=== PATIENT | female | born 1935 | race African-American/Black ===

== ENCOUNTER 2016-12-09 13:18 | Inpatient (IN) | payer MEDICARE, BC, MEDICAID ==
[~2016-12-09] VITALS: Ht 162.6 cm; Wt 68.9 kg
[~2016-12-09 13:18] MED LIST: ASPIRIN EC325 MG ORAL; CALCIUM + VITA1 EAC1 PO; CARDIZEM60 MG ORAL; CRESTOR20 MG ORAL; CRESTOR40 MG ORAL; DEPAKENE250 MG ORAL; DIOVAN80 MG ORAL; ECOTRIN325 MG ORAL; FUROSEMIDE40 MG ORAL; KLOR-CON20 MEQ ORAL; LOVAZA1 GM ORAL; METOPROLOL SUC100 MG ORAL; PLAVIX75 MG ORAL; PREVACID30 M2 ORAL; PREVACID30 MG ORAL; QUETIAPINE FUMA25 MG ORAL; QUETIAPINE FUMA50 MG ORAL; RANITIDINE HCL150 M2 PO; RESTORIL15 MG ORAL; TEMAZEPAM15 MG ORAL; XARELTO10 MG ORAL; ZYPREXA5 MG ORAL
[2016-12-09 13:20] VITALS: BP 134/58
[2016-12-09] MEDS ORDERED: Tetanus/Diptheria/Pertussis Vaccine 0.5ml Syr IM ONE (13:45)
--- NOTE | 2016-12-09 13:45 | Emergency Room Report ---
History of Present Illness General Chief Complaint: Generalized Weakness Source: Patient, EMS Present Illness HPI 81-year-old female, poor historian, history of psych, hypertension, Afib on xarelto, presenting with fall. Patient is for poor historian but states that she slipped out of bed and fell onto floor. Unknown LOC. EMS reports that neighbors found her on the floor, and called 911. Patient unable to give full history as far as what happened prior to the fall. However at this time complaining of mild left facial pain for which she sustained a bruise, and mild left knee pain. Patient denies any current chest pain shortness of breath nausea vomiting abdominal pain Allergies: Coded Allergies: No Known Allergies (Unverified , 11/25/13) Patient History Past Medical History: see triage record Past Surgical History: none Pertinent Family History: none Reviewed Nursing Documentation: PMH: Agreed, PSxH: Agreed Nursing Documentation-PMH Past Medical History: No History, Except For Hx Cardiac Problems: Yes Hx Hypertension: Yes Hx Pacemaker: Yes Hx Asthma: No Hx COPD: No Hx Diabetes: No Hx Cancer: No Hx Gastrointestinal Problems: Yes - GERD Hx Dialysis: No Hx Neurological Problems: Yes - Dementia; difficulty in walking; foot pain Hx Cerebrovascular Accident: No Hx Dementia: Yes Hx Seizures: No Review of Systems All Other Systems: limited - poor historian Physical Exam Vital Signs Date Time Temp Pulse Resp B/P (MAP) Pulse Ox O2 Delivery O2 Flow Rate FiO2 12/09/16 13:10 98.1 81 18 161/68 98 Room Air Sp02 EP Interpretation: reviewed, normal General Appearance: non-toxic, other - Elderly frail-appearing female, awake and alert, following commands, however not good historian Head: normocephalic - Left-sided facial ecchymosis and edema, with superficial abrasion, not bleeding. Tender to palpation. Eyes: bilateral eye normal inspection, bilateral eye PERRL, bilateral eye EOMI ENT: normal pharynx, normal voice, moist mucus membranes, other Neck: normal inspection, full range of motion, supple Respiratory: normal inspection, lungs clear, normal breath sounds, no respiratory distress, no retraction, no wheezing, speaking full sentences, chest symmetrical Cardiovascular #1: normal inspection, regular rate, rhythm, no edema, normal capillary refill Cardiovascular #2: 2+ radial (R), 2+ radial (L) Gastrointestinal: normal inspection, non tender, soft, non-distended, no guarding Musculoskeletal: back normal, other - L knee with mild effusion TTP, however full passive ROM. no abnormalities other ext Neurologic: alert, responsive, motor strength/tone normal, sensory intact Psychiatric: other - poor historian/confused Skin: normal inspection, normal color, no rash, warm/dry, well hydrated, normal turgor Procedures Critical Care Time Critical Care Time 40 minutes of CC time 81-year-old female, atrial fibrillation, on several toe, head trauma VS: Tachycardic but BP is normal Airway patent. Not hypoxic. PLAN: IV access, labs, CT head and C-spine Tele CC time also includes review of labs, review of EMR, speaking to EMS, d/w hospitalist CC could include dosing of pressors, additional Abx CC time does not include procedures Medical Decision Making Diagnostic Impression: Primary Impression: Atrial fibrillation Additional Impressions: Head trauma Fall Syncope ER Course 81 yo female with fall, unknown mechanism, possible syncopal episode. DDX: Possible syncopal episode versus mechanical fall: Dehydration, hypovolemia, electrolyte imbalance, cardiac, ACS, atrial fibrillation, infectious, UTI or pneumonia Head trauma: On blood thinners rule out intracranial bleed/C spine fx Plan: Obtain labs, ua, EKG, CXR, CT head/C spine, left knee x-ray T. dap ER course: Patient has been monitored during ED stay, heart rate has been mostly 100-120, blood pressures have been within normal limits CT head neg for acute bleed Pt remains awake and alert however confused, unknown baseline. Disposition: Patient is to be admitted to telemetry D/W Dr. Engel and Dr. Dale, who have accepted patient for admission Please note that this Emergency Department Report was dictated using [employer] production [employer] technology software, occasionally this can lead to erroneous entry secondary to interpretation by the dictation equipment. Laboratory Tests Test 12/09/16 14:00 12/09/16 14:47 12/10/16 04:40 White Blood Count 11.6 K/UL (4.8-10.8) H 10.9 K/UL (4.8-10.8) H Red Blood Count 4.57 M/UL (4.20-5.40) 4.05 M/UL (4.20-5.40) L Hemoglobin 13.3 G/DL (12.0-16.0) 12.4 G/DL (12.0-16.0) Hematocrit 43.2 % (37.0-47.0) 38.7 % (37.0-47.0) Mean Corpuscular Volume 94 FL (80-99) 96 FL (80-99) Mean Corpuscular Hemoglobin 29.1 PG (27.0-31.0) 30.6 PG (27.0-31.0) Mean Corpuscular Hemoglobin Concent 30.8 G/DL (32.0-36.0) L 32.1 G/DL (32.0-36.0) Red Cell Distribution Width 12.5 % (11.6-14.8) 12.2 % (11.6-14.8) Platelet Count 192 K/UL (150-450) 154 K/UL (150-450) Mean Platelet Volume 7.7 FL (6.5-10.1) 7.8 FL (6.5-10.1) Neutrophils (%) (Auto) 80.9 % (45.0-75.0) H 74.8 % (45.0-75.0) Lymphocytes (%) (Auto) 7.3 % (20.0-45.0) L 13.3 % (20.0-45.0) L Monocytes (%) (Auto) 11.0 % (1.0-10.0) H 10.8 % (1.0-10.0) H Eosinophils (%) (Auto) 0.0 % (0.0-3.0) 0.1 % (0.0-3.0) Basophils (%) (Auto) 0.8 % (0.0-2.0) 1.0 % (0.0-2.0) Sodium Level 141 mEQ/L (135-145) 137 mEQ/L (135-145) Potassium Level 3.7 mEQ/L (3.4-4.9) 4.1 mEQ/L (3.4-4.9) Chloride Level 101 mEQ/L (98-107) 101 mEQ/L (98-107) Carbon Dioxide Level 26 mEQ/L (20-30) 23 mEQ/L (20-30) Anion Gap 14 (5-15) 13 (5-15) Blood Urea Nitrogen 16 mg/dL (7-23) 18 mg/dL (7-23) Creatinine 1.1 mg/dL (0.5-0.9) H 1.1 mg/dL (0.5-0.9) H Estimate Glomerular Filtration Rate mL/min (>60) mL/min (>60) Glucose Level 124 mg/dL (74-106) H 104 mg/dL (74-106) Calcium Level 9.2 mg/dL (8.6-10.2) 8.8 mg/dL (8.6-10.2) Total Bilirubin 0.5 mg/dL (0.0-1.2) Aspartate Amino Transferase (AST) 184 U/L (5-40) H Alanine Aminotransferase (ALT) 38 U/L (3-33) H Alkaline Phosphatase 60 U/L (35-104) Total Creatine Kinase 55529 U/L (26-140) H 31487 U/L (26-140) H Creatine Kinase MB 84.6 ng/mL (< 3.8) H 17.9 ng/mL (< 3.8) H Creatine Kinase MB Relative Index 0.5 0.1 Troponin I < 0.30 ng/mL (<=0.30) < 0.30 ng/mL (<=0.30) Pro-B-Type Natriuretic Peptide 5534 pg/mL (0-450) H 2924 pg/mL (0-450) H Total Protein 7.7 g/dL (6.6-8.7) Albumin 3.6 g/dL (3.5-5.2) Globulin 4.1 g/dL Albumin/Globulin Ratio 0.8 (1.0-2.7) L Serum Alcohol < 10 mg/dL Urine Color Wolverine Urine Appearance Turbid Urine pH 5 (4.5-8.0) Urine Specific [place] 1.015 (1.005-1.035) Urine Protein 4+ (NEGATIVE) H Urine Glucose (UA) 1+ (NEGATIVE) H Urine Ketones 2+ (NEGATIVE) H Urine Occult Blood 5+ (NEGATIVE) H Urine Nitrite Negative (NEGATIVE) Urine Bilirubin Negative (NEGATIVE) Urine Urobilinogen 1 MG/DL (0.0-1.0) H Urine Leukocyte Esterase 3+ (NEGATIVE) H Urine RBC 15-20 /HPF (0 - 2) H Urine WBC 10-15 /HPF (0 - 2) H Urine Squamous Epithelial Cells Few /LPF (NONE/OCC) Urine Amorphous Sediment Few /LPF (NONE) H Urine Bacteria Moderate /HPF (NONE) H EKG Diagnostic Results Rate: tachycardiac, other - 106 Rhythm: other - afib ST Segments: other - TWI inf and lateral leads ASA given to the pt in ED: No Rhythm Strip Diag. Results EP Interpretation: yes Rate: 100 Rhythm: no PVC's, no ectopy, other - afib Chest X-Ray Diagnostic Results Chest X-Ray Diagnostic Results : Chest X-Ray Ordered: Yes # of Views/Limited/Complete: 1 View Indication: Other EP Interpretation: Yes Interpretation: no consolidation, no effusion, no pneumothorax, other - cardiomegaly Impression: Other - cardiomegaly, PPM Electronically Signed by: Electronically signed by Jie Vizcarra MD Other X-Ray Diagnostic Results Other X-Ray Diagnostic Results : X-Ray ordered: L knee # of Views/Limited Vs Complete: 3 View, Complete Indication: Pain EP Interpretation: Yes Interpretation: no dislocation, no soft tissue swelling, no fractures Impression: Other - degenerative changes Electronically Signed by: electroncally signed by jie vizcarra MD CT/MRI/US Diagnostic Results CT/MRI/US Diagnostic Results #1: Imaging Test Ordered: CT head Impression Negative for acute intracranial bleed or mass effect Electronically signed by Jie Vizcarra MD CT/MRI/US Diagnostic Results #2: Imaging Test Ordered: CT C spine Impression Impression: No acute bony trauma Degenerative changes, Electronically signed by Jie Vizcarra MD Last Vital Signs Date Time Temp Pulse Resp B/P (MAP) Pulse Ox O2 Delivery O2 Flow Rate FiO2 12/09/16 13:10 98.1 81 18 161/68 98 Room Air Disposition: ADMITTED INPATIENT Condition: Serious Jie Vizcarra M.D. Dec 09, 2016 13:45
[2016-12-09 14:23] LABS: BASOPHILS % (AUTO) 0.8 % (0.0-2.0); LYMPHOCYTES % (AUTO) 7.3 % (20.0-45.0); MEAN CORPUSCULAR HEMOGLOBIN 29.1 PG (27.0-31.0); MEAN CORPUSCULAR HGB CONC 30.8 G/DL (32.0-36.0); MEAN CORPUSCULAR VOLUME 94 FL (80-99); MEAN PLATELET VOLUME 7.7 FL (6.5-10.1); NEUTROPHILS % (AUTO) 80.9 % (45.0-75.0); PLATELET COUNT 192 K/UL (150-450); RED BLOOD COUNT 4.57 M/UL (4.20-5.40); RED CELL DISTRIBUTION WIDTH 12.5 % (11.6-14.8); WHITE BLOOD COUNT 11.6 K/UL (4.8-10.8)
--- NOTE | 2016-12-09 14:26 | Diagnostic Imaging Report ---
Indication: Shortness of breath Technique: One view of the chest Comparison: Findings: Left lateral hemidiaphragm is obscured, could indicate a small amount of pleural fluid. The remainder lungs and pleural spaces are clear. There is a left chest unifocal pacemaker. Heart is mildly enlarged. Surgical hardware is again demonstrated in the left scapula Impression: Possible small left pleural effusion No acute process otherwise Cardiomegaly
[2016-12-09 14:34] LABS: ALANINE AMINOTRANSFERASE 38 U/L (3-33); ALBUMIN/GLOBULIN RATIO 0.8 (1.0-2.7); ANION GAP 14 (5-15); ASPARTATE AMINO TRANSFERASE 184 U/L (5-40); CALCIUM 9.2 mg/dL (8.6-10.2); CARBON DIOXIDE 26 mEQ/L (20-30); CHLORIDE 101 mEQ/L (98-107); CREATININE 1.1 mg/dL (0.5-0.9); HEMOLYSIS 3; POTASSIUM 3.7 mEQ/L (3.4-4.9); SODIUM 141 mEQ/L (135-145); TOTAL PROTEIN 7.7 g/dL (6.6-8.7); TROPONIN I < 0.30 ng/mL (<=0.30)
[2016-12-09 14:44] LABS: CKMB 84.6 ng/mL (< 3.8)
[2016-12-09] MEDS ORDERED: Mylanta II UD 30ml ORAL PRN (14:45)
[2016-12-09] MEDS ORDERED: DuoNeb 0.5-3(2.5)mg/3ml neb HHN PRN (14:45)
[2016-12-09] MEDS ORDERED: Nitroglycerin Subl 0.4mg tab SL PRN (14:45)
[2016-12-09] MEDS ORDERED: Miralax 17gm pkt ORAL PRN (14:45)
[2016-12-09 15:03] VITALS: BP 123/68
[2016-12-09 15:05] LABS: APPEARANCE,URINE TURBID; KETONES,URINE 2+ (NEGATIVE); LEUKOCYTE ESTERASE ,URINE 3+ (NEGATIVE); NITRITE,URINE NEGATIVE (NEGATIVE); PH,URINE 5 (4.5-8.0); PROTEIN,URINE 4+ (NEGATIVE); UROBILINOGEN,URINE 1 MG/DL (0.0-1.0)
--- NOTE | 2016-12-09 15:16 | Diagnostic Imaging Report ---
Indication: , Recent Technique: Spiral acquisitions obtained through the cervical spine. No IV contrast utilized. Multiplanar reconstructions were generated. Total dose length product 2:30 mGycm. CTDIvol(s) 13.8 mGy. Dose reduction achieved using automated exposure control Comparison: None Findings: Vertebral body heights are preserved, except for abnormality of the C5 and C6 vertebral bodies due to degenerative remodeling. There is slight reversal of the normal cervical lordosis in the mid to lower cervical spine, due to the degenerative remodeling of the vertebral bodies in this area. Otherwise normal bony alignment. No acute fractures. No dislocations. There is degenerative narrowing of the anterior lateral axial joint. At C3-4, there is mild central posterior disc protrusion. This, in combination with short pedicles results in borderline narrowing of the spinal canal. There is minimal narrowing of left neural foramen this level. There is facet degeneration on the left. The disc space is preserved At C4-5, no significant disc bulge or or spinal stenosis. The disc space is preserved. There is facet degeneration on the left. There is moderate narrowing of the left neural foramen. At C5-6, there is moderate degenerative disc narrowing. Posterior osteophytes and short pedicles result in borderline stenosis of the spinal canal. There is moderate bilateral neural foraminal stenosis. At C6-7, there is moderate degenerative disc narrowing. No significant disc bulge or protrusion. There is moderate bilateral neural foraminal stenosis. At the remaining disc levels, no significant disc bulge or protrusion, spinal stenosis, or neural foraminal narrowing. Fairly numerous surgical clips are seen in the left side of the neck. There are fairly extensive vascular calcifications. Impression: No acute bony trauma Degenerative changes, as detailed on a level by level basis above The CT scanner at [facility] is accredited by the [employer] and the scans are performed using protocols designed to limit radiation exposure to as low as reasonably achievable to attain images of sufficient resolution adequate for diagnostic evaluation.
[2016-12-09] MEDS ORDERED: UNOBMED (15:27)
[2016-12-09 15:33] LABS: AMORPHOUS SEDIMENT,UR FEW /LPF; BACTERIA,URINE MODERATE /HPF; RBC,URINE 15-20 /HPF (0 - 2); SQUAMOUS EPITHELIAL CELL,UR FEW /LPF (NONE/OCC)
--- NOTE | 2016-12-09 15:35 | Diagnostic Imaging Report ---
Indication: Pain Technique: 3 views of the left knee Comparison: None Findings:There is degenerative joint space narrowing of the medial compartment and minimally of the lateral compartment. There are medial, lateral, and patellofemoral degenerative proliferative changes. No definite acute fractures. No dislocations. There are vascular calcifications. No definite suprapatellar effusion. Impression:Degenerative changes, as described No acute bony trauma
[2016-12-09 16:15] VITALS: BP 136/74
--- NOTE | 2016-12-09 18:03 | History & Physical ---
History and Physical History & Physicial Dictated for Int Med-Dr Engel no. [id number]. MAYANK PATEL Dec 09, 2016 18:03
[2016-12-09 20:00] VITALS: BP 121/47
[2016-12-09] MEDS: Heparin 5000 units/ml inj SUBQ SCH (21:55)
[2016-12-10] VITALS: BP 112/51
--- NOTE | 2016-12-10 02:45 | History and Physical Report ---
DATE OF ADMISSION: 12/09/2016 CHIEF COMPLAINT: The patient is an 81-year-old female, who presents with a chief complaint of altered mental status. HISTORY OF PRESENT ILLNESS: The patient herself is a poor historian. According to notes of emergency room, the patient was found by neighbors after a fall. It is unknown how long the patient was down. Neighbors called 911. Upon arrival at [facility] emergency room, the patient was found to be in atrial fibrillation with rapid ventricular rate. The patient is admitted for altered mental status secondary to fall injury. PAST MEDICAL HISTORY: Significant for 1. Atrial fibrillation, on Xarelto. 2. Hypertension. 3. Psychiatric disorder. PAST SURGICAL HISTORY: Significant for pacemaker implantation. CURRENT MEDICATIONS: 1. Lasix 40 mg one tablet p.o. daily. 2. Prevacid 30 mg one tablet p.o. daily. 3. Metoprolol 100 mg one tablet p.o. daily. 4. Seroquel 100 mg one tablet p.o. daily. 5. Zantac 150 mg one tablet p.o. twice daily. 6. Xarelto 15 mg one tablet p.o. daily. 7. Crestor 20 mg one tablet p.o. daily. 8. Depakote 250 mg p.o. three times daily. 9. Diovan 80 mg one tablet p.o. twice daily. ALLERGIES: No known drug allergies. SOCIAL HISTORY: The patient is single and lives alone. The patient denies tobacco or alcohol use. REVIEW OF SYSTEMS: Unable to assess secondary to the patient's mental status. PHYSICAL EXAMINATION: VITAL SIGNS: Temperature 98.1, respirations 18, pulse 81, blood pressure 161/68. GENERAL: The patient is a well-developed and well-nourished female, in no apparent distress. HEENT: Eyes: Pupils equal and responsive to light and accommodation. Extraocular movements are intact. NECK: Supple without lymphadenopathy. CHEST: Lungs are clear to auscultation bilaterally without wheezes or rales. CARDIOVASCULAR: Tachycardic, regular rhythm and rate. S1 and S2 normal without murmurs, rubs, or gallops. ABDOMEN: Soft, nontender, nondistended. Positive bowel sounds. No evidence of hepatosplenomegaly. Currently, no rebound or guarding noted. EXTREMITIES: Negative for clubbing, cyanosis, or edema. RECTAL/GENITAL: Refused. NEUROLOGIC: Cranial nerves II through XII are grossly intact without focal deficits. LABORATORY STUDIES: WBC 11.6, hemoglobin 15.2, hematocrit 42.2, and platelets 192,000. Sodium 141, potassium 3.7, chloride 101, CO2 26, BUN 16, creatinine 1.1, and glucose 124. AST elevated at 184, ALT elevated at 38. Total CK elevated at 14,190. CK-MB fraction is elevated at 84.6. Troponin normal at less than 0.3. BNP elevated at 5534. Urinalysis showed 5+ occult blood, 1+ glucose, 2+ ketones with 10 to 15 WBCs. Chest x-ray revealed no acute disease. A left knee x-ray showed degenerative arthritis, otherwise no acute fracture. ASSESSMENT: This is an 81-year-old female with: 1. Altered mental status. 2. Fall injury. 3. Atrial fibrillation with rapid ventricular rate. 4. Hypertension. 5. Rhabdomyolysis. 6. Pacemaker in situ. 7. Altered mental status. It is unknown why the patient has altered mental status. The patient's heart rate upon arrival was in the 130s. The patient's heart rate is now in the 90s. A Neurology consultation per Dr. Gan. An MRI of the brain is pending. 8. Atrial fibrillation. A Cardiology consultation has been obtained with Dr. Ponce Tomas. Continue Xarelto as above. 9. Hypertension. Continue metoprolol and Diovan as above. 10. Rhabdomyolysis. The patient is currently receiving intravenous fluids. 11. Pacemaker in situ. Deng Loza M.D. DR: Vernon JOB#: [id number] CC:
[2016-12-10] MEDS: LORazepam Inj 2mg/ml 1ml IV PRN ×2 (02:53→12:14)
[2016-12-10 04:00] VITALS: BP 146/99
[2016-12-10 05:46] LABS: EOSINOPHILS % (AUTO) 0.1 % (0.0-3.0); LYMPHOCYTES % (AUTO) 13.3 % (20.0-45.0); MEAN CORPUSCULAR HEMOGLOBIN 30.6 PG (27.0-31.0); MEAN CORPUSCULAR HGB CONC 32.1 G/DL (32.0-36.0); MEAN CORPUSCULAR VOLUME 96 FL (80-99); MEAN PLATELET VOLUME 7.8 FL (6.5-10.1); MONOCYTES % (AUTO) 10.8 % (1.0-10.0); NEUTROPHILS % (AUTO) 74.8 % (45.0-75.0); PLATELET COUNT 154 K/UL (150-450); RED BLOOD COUNT 4.05 M/UL (4.20-5.40); RED CELL DISTRIBUTION WIDTH 12.2 % (11.6-14.8); WHITE BLOOD COUNT 10.9 K/UL (4.8-10.8)
[2016-12-10 05:58] LABS: TROPONIN I < 0.30 ng/mL (<=0.30)
[2016-12-10 06:02] LABS: ANION GAP 13 (5-15); CALCIUM 8.8 mg/dL (8.6-10.2); CARBON DIOXIDE 23 mEQ/L (20-30); CHLORIDE 101 mEQ/L (98-107); CREATININE 1.1 mg/dL (0.5-0.9); HEMOLYSIS 13; POTASSIUM 4.1 mEQ/L (3.4-4.9); SODIUM 137 mEQ/L (135-145)
[2016-12-10 06:07] LABS: CKMB 17.9 ng/mL (< 3.8)
[2016-12-10] MEDS: Heparin 5000 units/ml inj SUBQ SCH (08:09)
[2016-12-10] MEDS ORDERED: Diltiazem 25mg/5ml IV PRN (08:15)
[2016-12-10] MEDS ORDERED: Xarelto 15mg tab ORAL SCH (09:00)
[2016-12-10] MEDS: Morphine Sulfate 2mg/ml Inj IVP PRN (10:06)
--- NOTE | 2016-12-10 11:52 | Wound Care Consultation ---
Wound Assessment Wound Assessment #1: Wound Number: 1 Wound Present on Admission: Yes New Wound: No Status Change of Wound: No Wound Location Body Site Modif: right Wound Location Body Site: other - cheek Wound Type: pressure ulcer Jabier Test: Does not Jabier Wound Thickness: Partial Thickness Wound Length: 3.0 Wound Width: 4.0 Wound Depth: less than 0.1 Percent of Wound [place]/Red: 100 Wound Drainage Amount: None Wound Drainage Odor: None/Absent Tissue Surrounding Wound: Intact Wound General Appearance: Open to air, Clean/Dry Wound Assessment #2: Wound Number: 2 Wound Present on Admission: Yes New Wound: No Status Change of Wound: No Wound Location Body Site: perineal area Wound Type: lesion-etiology unknown Jabier Test: Does not Jabier Wound Thickness: Full Thickness Wound Length: 4.0 Wound Width: 3.5 Wound Depth: 0.2 Percent of Wound [place]/Red: 90 Percent of Wound Bed Yellow/Wh: 10 Wound Drainage Description: Serosanguineous Wound Drainage Amount: Moderate Wound Drainage Odor: None/Absent Tissue Surrounding Wound: Erythemic Wound General Appearance: Reddened, Draining Wound Assessment #3: Wound Number: 3 Wound Present on Admission: Yes New Wound: No Status Change of Wound: No Wound Location Body Site Modif: left, lateral Wound Location Body Site: metatarsal head - 5th Wound Type: pressure ulcer Jabier Test: Does not Jabier Wound Thickness: Full Thickness Wound Length: 1.0 Wound Width: 1.5 Wound Depth: utd Percent of Wound Bed Yellow/Wh: 100 - dry Wound Drainage Amount: None Wound Drainage Odor: None/Absent Tissue Surrounding Wound: Intact Wound General Appearance: Asymptomatic Wound Assessment #4: Wound Number: 4 Wound Present on Admission: Yes New Wound: No Status Change of Wound: No Wound Location Body Site Modif: left Wound Location Body Site: elbow Wound Type: scab - scattered dry Jabier Test: Does not Jabier Wound Thickness: Full Thickness Percent of Wound Black/Brown: 100 Wound Drainage Amount: None Wound Drainage Odor: None/Absent Tissue Surrounding Wound: Erythemic Wound General Appearance: Asymptomatic Wound Comment #1 Left cheek open wound with partial skin loss #2 Perineal area full thickness open wound etiology unknown #3 Left lateral 5th metatarsal head dry scab #4 Left elbow with scattered dry scabs Recommendation -Perineal area full thickness open wound etiology unknown Cleanse with saline, pat dry, apply Triad cream BID and PRN soiled and leave area open to air -Local wound care per protocol -Keep clean and dry -Turn and reposition -Optimize nutrition -Offload both heels -Heel protector on both heels -Assess and f/u accordingly for any changes MYNOR MCGRAW RN Dec 10, 2016 11:52
[2016-12-10] MEDS ORDERED: Metoprolol 5mg/5ml Inj IVP PRN ×2 (12:45→19:00)
--- NOTE | 2016-12-10 14:45 | Diagnostic Imaging Report ---
Indications: History of recent head trauma from fall, possible loss of consciousness Technique: Spiral acquisitions obtained through the brain. Angled axial and coronal 5 x 5 mm slices were reconstructed. Total dose length product 1301 mGycm. CTDI vol(s) 70 mGy. Dose reduction achieved using automated exposure control Comparison: 12/30/2013 Findings: Again demonstrated is anterior convexity and cerebellar cortical volume loss. This appears to progressed somewhat since the previous study. There is minimal periventricular deep white matter chronic ischemic change. No acute hemorrhage or edema. No mass effect or midline shift. There is a calcification in the left posterior parietal lobe which was not clearly evident previously. Included orbits and sinuses are unremarkable. The mastoids are clear. The calvarium is intact. Impression: Chronic and age-related changes Left posterior parietal calcification, not evident previously. Significance uncertain, likely on the basis of postinflammatory change Negative for acute intracranial bleed or mass effect The CT scanner at [facility] is accredited by the [employer] and the scans are performed using protocols designed to limit radiation exposure to as low as reasonably achievable to attain images of sufficient resolution adequate for diagnostic evaluation.
--- NOTE | 2016-12-10 14:50 | Consultation ---
History of Present Illness General Date patient seen: Dec 09, 2016 Chief Complaint: Generalized Weakness Present Illness HPI 81-year-old female with hx of hypertension, Afib , pace maker, presenting with fall, apparently she slipped out of bed and fell onto floor. . EMS reported that neighbors found her on the floor, and called 911. she was complaining of mild left facial pain for which she sustained a bruise, and mild left knee pain. Allergies: Coded Allergies: No Known Allergies (Unverified , 10/22/13) Medication History Scheduled Aspirin* (Ecotrin*), 81 MG ORAL DAILY, (Reported) Clopidogrel Bisulfate* (Plavix*), 75 MG ORAL DAILY, (Reported) Furosemide* (Lasix*), 40 MG ORAL DAILY, (Reported) Lansoprazole* (Prevacid*), 30 MG ORAL BID, (Reported) Lansoprazole* (Prevacid*), 30 MG ORAL DAILY, (Reported) Metoprolol Succinate* (Metoprolol Succinate*), 100 MG ORAL DAILY, (Reported) Metoprolol Succinate* (Metoprolol Succinate*), 100 MG ORAL DAILY, (Reported) [place]-3 Acid Ethyl Esters (Lovaza), 1 GM ORAL DAILY, (Reported) Potassium Chloride (Klor-Con), 8.8 MEQ ORAL DAILY, (Reported) Quetiapine Fumarate* (Quetiapine Fumarate*), 100 MG ORAL DAILY, (Reported) Quetiapine Fumarate* (Seroquel*), 25 MG ORAL DAILY Ranitidine HCl (Ranitidine HCl), 150 MG PO BID, (Reported) Rivaroxaban (Xarelto*), 15 MG ORAL DAILY, (Reported) Rosuvastatin Calcium* (Crestor*), 40 MG ORAL DAILY, (Reported) Rosuvastatin Calcium* (Crestor*), 20 MG ORAL DAILY, (Reported) Temazepam (Temazepam*), 15 MG ORAL BEDTIME, (Reported) Valproic Acid (Depakene), 250 MG ORAL TID, (Reported) Valproic Acid (Depakene), 250 MG ORAL TID, (Reported) Valsartan (Diovan), 80 MG ORAL BID, (Reported) Valsartan (Diovan), 80 MG ORAL BID, (Reported) Scheduled PRN Temazepam* (Restoril*), 15 MG ORAL BEDTIME PRN for Insomnia, (Reported) Miscellaneous Medications Calcium Carbonate/Vitamin D3 (Calcium + Vitamin D Tablet), 1 EACH PO, (Reported) Unable to Obtain Medications (Unable To Obtain Meds), (Reported) Patient History Healthcare decision maker Resuscitation status Advanced Directive on File Past Medical/Surgical History Past Medical/Surgical History: (1) Psychosis (2) Atrial fibrillation (3) Cardiomyopathy Review of Systems Constitutional: Reports: no symptoms Eye: Reports: no symptoms ENT: Reports: no symptoms All Other Systems: negative except mentioned in HPI Physical Exam General Appearance: WD/WN Lines, tubes and drains: peripheral HEENT: normocephalic, atraumatic Neck: non-tender, normal alignment Respiratory/Chest: chest wall non-tender, lungs clear Cardiovascular/Chest: normal peripheral pulses, normal rate Abdomen: normal bowel sounds Last 24 Hour Vital Signs Date Time Temp Pulse Resp B/P (MAP) Pulse Ox O2 Delivery O2 Flow Rate FiO2 12/10/16 13:05 180 118/60 12/10/16 10:48 125 133/60 12/10/16 08:20 97 16 Room Air 21 12/10/16 04:00 117 12/10/16 04:00 98.6 98 22 146/99 94 Room Air 12/10/16 00:00 108 12/10/16 00:00 97.3 83 16 112/51 100 Room Air 12/09/16 20:00 97.5 84 20 121/47 98 Room Air 12/09/16 20:00 88 12/09/16 16:15 97.2 91 15 136/74 97 Room Air 12/09/16 15:50 98.1 95 18 140/93 100 Room Air 12/09/16 15:03 98.1 108 16 123/68 100 Room Air Intake and Output 12/10/16 12/11/16 19:00 07:00 # Bowel Movements 1 Laboratory Tests Test 12/09/16 14:47 12/10/16 04:40 Urine Color [place] Urine Appearance Turbid Urine pH 5 (4.5-8.0) Urine Specific [place] 1.015 (1.005-1.035) Urine Protein 4+ (NEGATIVE) H Urine Glucose (UA) 1+ (NEGATIVE) H Urine Ketones 2+ (NEGATIVE) H Urine Occult Blood 5+ (NEGATIVE) H Urine Nitrite Negative (NEGATIVE) Urine Bilirubin Negative (NEGATIVE) Urine Urobilinogen 1 MG/DL (0.0-1.0) H Urine Leukocyte Esterase 3+ (NEGATIVE) H Urine RBC 15-20 /HPF (0 - 2) H Urine WBC 10-15 /HPF (0 - 2) H Urine Squamous Epithelial Cells Few /LPF (NONE/OCC) Urine Amorphous Sediment Few /LPF (NONE) H Urine Bacteria Moderate /HPF (NONE) H White Blood Count 10.9 K/UL (4.8-10.8) H Red Blood Count 4.05 M/UL (4.20-5.40) L Hemoglobin 12.4 G/DL (12.0-16.0) Hematocrit 38.7 % (37.0-47.0) Mean Corpuscular Volume 96 FL (80-99) Mean Corpuscular Hemoglobin 30.6 PG (27.0-31.0) Mean Corpuscular Hemoglobin Concent 32.1 G/DL (32.0-36.0) Red Cell Distribution Width 12.2 % (11.6-14.8) Platelet Count 154 K/UL (150-450) Mean Platelet Volume 7.8 FL (6.5-10.1) Neutrophils (%) (Auto) 74.8 % (45.0-75.0) Lymphocytes (%) (Auto) 13.3 % (20.0-45.0) L Monocytes (%) (Auto) 10.8 % (1.0-10.0) H Eosinophils (%) (Auto) 0.1 % (0.0-3.0) Basophils (%) (Auto) 1.0 % (0.0-2.0) Sodium Level 137 mEQ/L (135-145) Potassium Level 4.1 mEQ/L (3.4-4.9) Chloride Level 101 mEQ/L (98-107) Carbon Dioxide Level 23 mEQ/L (20-30) Anion Gap 13 (5-15) Blood Urea Nitrogen 18 mg/dL (7-23) Creatinine 1.1 mg/dL (0.5-0.9) H Estimat Glomerular Filtration Rate mL/min (>60) Glucose Level 104 mg/dL (74-106) Calcium Level 8.8 mg/dL (8.6-10.2) Total Creatine Kinase 76110 U/L (26-140) H Creatine Kinase MB 17.9 ng/mL (< 3.8) H Creatine Kinase MB Relative Index 0.1 Troponin I < 0.30 ng/mL (<=0.30) Pro-B-Type Natriuretic Peptide 2924 pg/mL (0-450) H Microbiology Date/Time Source Procedure Growth Status 12/09/16 14:47 Urine,Clean Catch Urine Culture - Preliminary NO GROWTH Resulted Height (Feet): 5 Height (Inches): 4.00 Weight (Pounds): 152 Medications Current Medications Medications (Trade) Dose Ordered Sig/Trudy Route PRN Reason Start Time Stop Time Status Last Admin Dose Admin Acetaminophen (Tylenol) 650 mg Q4H PRN ORAL fever 12/09/16 14:45 01/08/17 14:44 Al Hydroxide/Mg Hydroxide (Mylanta II) 30 ml Q6H PRN ORAL dyspepsia 12/09/16 14:45 01/08/17 14:44 Albuterol/ Ipratropium (DuoNeb 0.5-3(2.5)mg/3ml) 3 ml Q4H PRN HHN Shortness of Breath 12/09/16 14:45 12/14/16 14:44 Clonidine HCl (Catapres) 0.1 mg Q4H PRN ORAL SBP > 160 12/09/16 14:45 01/08/17 14:44 Dextrose (Dextrose 50%) STAT PRN IV Hypoglycemia 12/09/16 14:45 01/08/17 14:44 Diltiazem HCl (Cardizem) 10 mg Q1H PRN IV HR > SUSTAINED 120 12/10/16 08:15 01/09/17 08:14 12/10/16 10:48 Heparin Sodium (Porcine) (Heparin 5000 units/ml) 5,000 units EVERY 12 HOURS SUBQ 12/09/16 21:00 01/08/17 20:59 12/10/16 08:09 Lorazepam (Ativan 2mg/ml 1ml) 0.5 mg Q4H PRN IV For Anxiety 12/09/16 14:45 12/16/16 14:44 12/10/16 12:14 Metoprolol Succinate (Toprol XL) 100 mg DAILY ORAL 12/11/16 09:00 01/10/17 08:59 Metoprolol Tartrate (Lopressor) 5 mg QIDPRN PRN IVP For High Blood Pressure 12/10/16 12:45 01/09/17 12:44 12/10/16 13:05 Morphine Sulfate (Morphine Sulfate) 1 mg Q4H PRN IVP For Pain 7-10 12/09/16 14:45 12/16/16 14:44 12/10/16 10:06 Nitroglycerin (Ntg) 0.4 mg Q5M X 3 DOSES PRN SL Prn Chest Pain 12/09/16 14:45 01/08/17 14:44 Ondansetron HCl (Zofran) 4 mg Q6H PRN IVP Nausea & Vomiting 12/09/16 14:45 01/08/17 14:44 Polyethylene Glycol (Miralax) 17 gm HSPRN PRN ORAL Constipation 12/09/16 14:45 01/08/17 14:44 Rivaroxaban (Xarelto) 15 mg DAILY ORAL 12/10/16 09:00 01/09/17 08:59 12/10/16 09:00 Temazepam (Restoril) 15 mg HSPRN PRN ORAL Insomnia 12/09/16 14:45 12/16/16 14:44 Assessment/Plan Problem List: (1) Acute encephalopathy ICD Codes: G93.40 - Encephalopathy, unspecified SNOMED: 0394656 (2) Rapid atrial fibrillation ICD Codes: I48.91 - Unspecified atrial fibrillation SNOMED: 590700382 (3) Psychosis ICD Codes: F29 - Unsp psychosis not due to a substance or known physiol cond SNOMED: 58773931 (4) Atrial fibrillation ICD Codes: I48.91 - Atrial fibrillation SNOMED: 34976180 (5) dementia vascular (6) Cardiomyopathy ICD Codes: I42.9 - Cardiomyopathy, unspecified SNOMED: 93443411 Assessment/Plan telemetry monitoring echo cardiac enzymes rate control psych evaluation continue psych meds MARÍA JI Dec 10, 2016 14:50
--- NOTE | 2016-12-10 15:07 | Internal Med Progress Note ---
Subjective Physician Name Sim Engel Attending Physician Sim Engel MD Current Medications Medications (Trade) Dose Ordered Sig/Trudy Route PRN Reason Start Time Stop Time Status Last Admin Dose Admin Acetaminophen (Tylenol) 650 mg Q4H PRN ORAL fever 12/09/16 14:45 01/08/17 14:44 Al Hydroxide/Mg Hydroxide (Mylanta II) 30 ml Q6H PRN ORAL dyspepsia 12/09/16 14:45 01/08/17 14:44 Albuterol/ Ipratropium (DuoNeb 0.5-3(2.5)mg/3ml) 3 ml Q4H PRN HHN Shortness of Breath 12/09/16 14:45 12/14/16 14:44 Clonidine HCl (Catapres) 0.1 mg Q4H PRN ORAL SBP > 160 12/09/16 14:45 01/08/17 14:44 Dextrose (Dextrose 50%) STAT PRN IV Hypoglycemia 12/09/16 14:45 01/08/17 14:44 Diltiazem HCl (Cardizem) 10 mg Q1H PRN IV HR > SUSTAINED 120 12/10/16 08:15 01/09/17 08:14 12/10/16 10:48 Heparin Sodium (Porcine) (Heparin 5000 units/ml) 5,000 units EVERY 12 HOURS SUBQ 12/09/16 21:00 01/08/17 20:59 12/10/16 08:09 Lorazepam (Ativan 2mg/ml 1ml) 0.5 mg Q4H PRN IV For Anxiety 12/09/16 14:45 12/16/16 14:44 12/10/16 12:14 Metoprolol Succinate (Toprol XL) 100 mg DAILY ORAL 12/11/16 09:00 01/10/17 08:59 Metoprolol Tartrate (Lopressor) 5 mg QIDPRN PRN IVP For High Blood Pressure 12/10/16 12:45 01/09/17 12:44 12/10/16 13:05 Morphine Sulfate (Morphine Sulfate) 1 mg Q4H PRN IVP For Pain 7-10 12/09/16 14:45 12/16/16 14:44 12/10/16 10:06 Nitroglycerin (Ntg) 0.4 mg Q5M X 3 DOSES PRN SL Prn Chest Pain 12/09/16 14:45 01/08/17 14:44 Ondansetron HCl (Zofran) 4 mg Q6H PRN IVP Nausea & Vomiting 12/09/16 14:45 01/08/17 14:44 Polyethylene Glycol (Miralax) 17 gm HSPRN PRN ORAL Constipation 12/09/16 14:45 01/08/17 14:44 Rivaroxaban (Xarelto) 15 mg DAILY ORAL 12/10/16 09:00 01/09/17 08:59 12/10/16 09:00 Temazepam (Restoril) 15 mg HSPRN PRN ORAL Insomnia 12/09/16 14:45 12/16/16 14:44 Allergies: Coded Allergies: No Known Allergies (Unverified , 10/22/13) Subjective feeling weak, c/o Left knee pain , awake, alert, responsive, tachycardia Objective Last Vital Signs Date Time Temp Pulse Resp B/P (MAP) Pulse Ox O2 Delivery O2 Flow Rate FiO2 12/10/16 13:05 180 118/60 12/10/16 08:20 16 Room Air 21 12/10/16 04:00 98.6 94 Laboratory Tests Test 12/10/16 04:40 White Blood Count 10.9 K/UL (4.8-10.8) H Red Blood Count 4.05 M/UL (4.20-5.40) L Hemoglobin 12.4 G/DL (12.0-16.0) Hematocrit 38.7 % (37.0-47.0) Mean Corpuscular Volume 96 FL (80-99) Mean Corpuscular Hemoglobin 30.6 PG (27.0-31.0) Mean Corpuscular Hemoglobin Concent 32.1 G/DL (32.0-36.0) Red Cell Distribution Width 12.2 % (11.6-14.8) Platelet Count 154 K/UL (150-450) Mean Platelet Volume 7.8 FL (6.5-10.1) Neutrophils (%) (Auto) 74.8 % (45.0-75.0) Lymphocytes (%) (Auto) 13.3 % (20.0-45.0) L Monocytes (%) (Auto) 10.8 % (1.0-10.0) H Eosinophils (%) (Auto) 0.1 % (0.0-3.0) Basophils (%) (Auto) 1.0 % (0.0-2.0) Sodium Level 137 mEQ/L (135-145) Potassium Level 4.1 mEQ/L (3.4-4.9) Chloride Level 101 mEQ/L (98-107) Carbon Dioxide Level 23 mEQ/L (20-30) Anion Gap 13 (5-15) Blood Urea Nitrogen 18 mg/dL (7-23) Creatinine 1.1 mg/dL (0.5-0.9) H Estimat Glomerular Filtration Rate mL/min (>60) Glucose Level 104 mg/dL (74-106) Calcium Level 8.8 mg/dL (8.6-10.2) Total Creatine Kinase 42145 U/L (26-140) H Creatine Kinase MB 17.9 ng/mL (< 3.8) H Creatine Kinase MB Relative Index 0.1 Troponin I < 0.30 ng/mL (<=0.30) Pro-B-Type Natriuretic Peptide 2924 pg/mL (0-450) H Microbiology Date/Time Source Procedure Growth Status 12/09/16 14:47 Urine,Clean Catch Urine Culture - Preliminary NO GROWTH Resulted Intake and Output 12/10/16 12/11/16 19:00 07:00 # Bowel Movements 1 Objective General: No acute distress, awake and alert HEENT: NCAT, sclera anicteric, PERRL, EOMI, left chin scrape. Neck: Supple, no significant jugular venous distention, Lungs: fair inspiratory effort, clear to auscultation bilaterally, no Wheeze or Rales. Heart: IRRegular rate and rhythm, normal S1/S2, no murmurs, Left chest wall pacemaker. Abdomen: soft, nontender, nondistended. Normoactive bowel sounds. / Rectal: Refused and deferred. Extremities: No Cyanosis , clubbing or edema. Neuro: A&O x 3, Able to move all extremities slowly, Except left LE's due to knee pain. Skin: warm, no rashes Left chin scrape. Assessment/Plan Assessment/Plan 1. Acute UTI. 2. Fall 3. Atrial fibrillation with rapid ventricular rate. 4. Hypertension. 5. Rhabdomyolysis. 6. Pacemaker in situ. 7. Altered mental status most likely due to toxic metabolic encephalopathy. 8. Left knee pain 9. Mild dehydration Plan: CT of left knee PT Mobility on Xarelto start Abx: Rocephin Aleksandr hydration monitor labs and cultures Sim Engel MD Dec 10, 2016 15:07
[2016-12-10] MEDS: cefTRIAXone 1 GM in D5W 55 ML IVPB SCH (15:56)
[2016-12-10] MEDS: D5 1/2NS 1,000 ML IV SCH (15:56)
[2016-12-10 16:00] VITALS: BP 138/87
--- NOTE | 2016-12-10 16:40 | Diagnostic Imaging Report ---
Indication: Left knee pain. Technique: Continuous helical imaging of the left knee was performed in the transaxial plane. Coronal 2-D reformatted images were also generated. Study obtained in a Siemens Sensation [address] total DLP 354 mGycm CTD/vol 0.15x2, 15.26 mGy Comparison: None Findings: There is a moderate-sized joint effusion. Marginal spurs are demonstrated in all 3 compartments of the knee. The joint is narrowed. The bones are osteopenic.. Extensive vascular calcification noted within the popliteal artery. There is a lateral subluxation of the patella. Impression: Moderate to severe osteoarthritis of the knee. Lateral patellar subluxation. Atherosclerotic disease The CT scanner at [facility] is accredited by the [employer] and the scans are performed using dose optimization techniques as appropriate to a performed exam including Automatic Exposure control.
[2016-12-10] MEDS ORDERED: Eliquis 2.5mg tablet ORAL SCH (18:00)
[2016-12-10] MEDS ORDERED: Metoprolol 5mg/5ml Inj IVP ONE (18:45)
--- NOTE | 2016-12-10 18:51 | Cardiology Progress Note ---
Assessment/Plan Assessment/Plan [id number] perm afigb ventriuyal pacing fall with injury htn hld cad s/p oca pci rhabdo iv adn po bb control heaert rate need to reaasses saftely of anticoaulation in light of fall tropa dn ekg in am wath renal fucntion Objective Last 24 Hour Vital Signs Date Time Temp Pulse Resp B/P (MAP) Pulse Ox O2 Delivery O2 Flow Rate FiO2 12/10/16 16:00 97.8 80 21 138/87 97 Room Air 12/10/16 13:05 180 118/60 12/10/16 10:48 125 133/60 12/10/16 08:20 97 16 Room Air 21 12/10/16 04:00 117 12/10/16 04:00 98.6 98 22 146/99 94 Room Air 12/10/16 00:00 108 12/10/16 00:00 97.3 83 16 112/51 100 Room Air 12/09/16 20:00 97.5 84 20 121/47 98 Room Air 12/09/16 20:00 88 Intake and Output 12/10/16 12/11/16 19:00 07:00 # Bowel Movements 1 Laboratory Tests Test 12/10/16 04:40 12/10/16 17:10 White Blood Count 10.9 K/UL (4.8-10.8) H Red Blood Count 4.05 M/UL (4.20-5.40) L Hemoglobin 12.4 G/DL (12.0-16.0) Hematocrit 38.7 % (37.0-47.0) Mean Corpuscular Volume 96 FL (80-99) Mean Corpuscular Hemoglobin 30.6 PG (27.0-31.0) Mean Corpuscular Hemoglobin Concent 32.1 G/DL (32.0-36.0) Red Cell Distribution Width 12.2 % (11.6-14.8) Platelet Count 154 K/UL (150-450) Mean Platelet Volume 7.8 FL (6.5-10.1) Neutrophils (%) (Auto) 74.8 % (45.0-75.0) Lymphocytes (%) (Auto) 13.3 % (20.0-45.0) L Monocytes (%) (Auto) 10.8 % (1.0-10.0) H Eosinophils (%) (Auto) 0.1 % (0.0-3.0) Basophils (%) (Auto) 1.0 % (0.0-2.0) Sodium Level 137 mEQ/L (135-145) Potassium Level 4.1 mEQ/L (3.4-4.9) Chloride Level 101 mEQ/L (98-107) Carbon Dioxide Level 23 mEQ/L (20-30) Anion Gap 13 (5-15) Blood Urea Nitrogen 18 mg/dL (7-23) Creatinine 1.1 mg/dL (0.5-0.9) H Estimat Glomerular Filtration Rate mL/min (>60) Glucose Level 104 mg/dL (74-106) Calcium Level 8.8 mg/dL (8.6-10.2) Total Creatine Kinase 25903 U/L (26-140) H 73215 U/L (26-140) H Creatine Kinase MB 17.9 ng/mL (< 3.8) H Creatine Kinase MB Relative Index 0.1 Troponin I < 0.30 ng/mL (<=0.30) Pro-B-Type Natriuretic Peptide 2924 pg/mL (0-450) H Microbiology Date/Time Source Procedure Growth Status 12/09/16 14:47 Urine,Clean Catch Urine Culture - Preliminary NO GROWTH Resulted MARIE MARQUES Dec 10, 2016 18:51
[2016-12-10 19:36] VITALS: BP 118/77
[2016-12-10] MEDS ORDERED: Metoprolol Tartrate 50mg tab ORAL SCH (21:00)
[2016-12-10 21:32] LABS: CHOLESTEROL/HDL RATIO 2.2 (3.3-4.4)
[2016-12-11] VITALS (7 sets, daily range): BP systolic 110–150; BP diastolic 54–97
[2016-12-11] MEDS: D5 1/2NS 1,000 ML IV SCH ×2 (05:00→17:34)
[2016-12-11] MEDS ORDERED: Metoprolol 25mg tab ORAL ONE (05:00)
[2016-12-11 05:45] LABS: BASOPHILS % (AUTO) 0.8 % (0.0-2.0); EOSINOPHILS % (AUTO) 0.1 % (0.0-3.0); LYMPHOCYTES % (AUTO) 14.6 % (20.0-45.0); MEAN CORPUSCULAR HGB CONC 33.7 G/DL (32.0-36.0); MEAN CORPUSCULAR VOLUME 95 FL (80-99); MEAN PLATELET VOLUME 7.7 FL (6.5-10.1); MONOCYTES % (AUTO) 14.2 % (1.0-10.0); NEUTROPHILS % (AUTO) 70.4 % (45.0-75.0); PLATELET COUNT 200 K/UL (150-450); RED BLOOD COUNT 4.22 M/UL (4.20-5.40); RED CELL DISTRIBUTION WIDTH 12.3 % (11.6-14.8); WHITE BLOOD COUNT 10.9 K/UL (4.8-10.8)
[2016-12-11 05:54] LABS: ALANINE AMINOTRANSFERASE 49 U/L (3-33); ALBUMIN/GLOBULIN RATIO 0.8 (1.0-2.7); ANION GAP 15 (5-15); ASPARTATE AMINO TRANSFERASE 180 U/L (5-40); CALCIUM 9.1 mg/dL (8.6-10.2); CARBON DIOXIDE 26 mEQ/L (20-30); CHLORIDE 100 mEQ/L (98-107); CREATININE 1.2 mg/dL (0.5-0.9); HEMOLYSIS 2; MAGNESIUM 2.1 mg/dL (1.7-2.5); PHOSPHORUS 2.6 mg/dL (2.5-4.8); POTASSIUM 3.6 mEQ/L (3.4-4.9); SODIUM 141 mEQ/L (135-145); TOTAL PROTEIN 7.2 g/dL (6.6-8.7)
[2016-12-11 05:58] LABS: TROPONIN I < 0.30 ng/mL (<=0.30)
[2016-12-11 06:26] LABS: INR 1.2 (0.9-1.1); PROTHROMBIN TIME 12.1 SEC (9.30-11.50)
--- NOTE | 2016-12-11 07:35 | Pulmonology Progress Note ---
Assessment/Plan Assessment/Plan ASSESSMENT s/p fall A fib with RVR (permanent) HTN Rhabdo Acute toxic metabolic encephalopathy probable UTI Mild dehydration transaminitis CAD with PCI Pacemaker Hyperlipidemia Left knee pain OA L knee, moderate to severe severe pulmonary HTN PLAN OF CARE tele Cardio follows A fib permanent rate control with BB a/coagulation with Xarelto ? safety of a/coagulation in lieu of recent Fall ? increased risk to benefit ratio BP management with BB. Continue Plavix TSH, lipid panel -WNL Carotid Duplex ECHO with pEF 55% and RVSP of 58 c/w moderate to severe pulmonary HTN CT head no acute findings CXR negative O2 HHN prn orthostatic VS this am venous Duplex BLE IVF, trend CK in am abdominal US and hepatitis panel ( prior admission stable LFT). increased ratio of AST to ALT ? ETOH abuse will check GGTP , ammonia level monitor renal parameters, lytes, replace as needed CT C spine no acute bony trauma X ray L knee no acute bony trauma CT L knee moderate to severe OA pain management abx, urine cx + Strep viridans Fall precautions PT/OT case discussed and evaluated by supervising physician Subjective Allergies: Coded Allergies: No Known Allergies (Unverified , 10/22/13) Subjective denies chest pain, SOB, remains in A fib HR borderline 100-106 denies chest pain, SOB but confused and poor historian Objective Last 24 Hour Vital Signs Date Time Temp Pulse Resp B/P (MAP) Pulse Ox O2 Delivery O2 Flow Rate FiO2 12/11/16 05:15 98 132/64 12/11/16 04:00 98.6 85 20 132/74 95 Room Air 12/11/16 04:00 108 12/11/16 00:00 98.0 72 20 110/76 97 Room Air 12/11/16 00:00 97 12/10/16 21:07 98 118/77 12/10/16 20:00 101 12/10/16 19:36 98.2 98 20 118/77 99 Room Air 12/10/16 18:54 126 121/61 12/10/16 16:00 119 12/10/16 16:00 97.8 80 21 138/87 97 Room Air 12/10/16 13:05 180 118/60 12/10/16 12:00 171 12/10/16 10:48 125 133/60 12/10/16 08:20 97 16 Room Air 21 12/10/16 08:00 121 General Appearance: no acute distress, other - awake, alert, confused elderly AA female in NAD HEENT: normocephalic, atraumatic, anicteric, mucous membranes moist Respiratory/Chest: lungs clear, no accessory muscle use, chest wall tender Cardiovascular: normal peripheral pulses, no JVD, tachycardia - 100-106 , irregularly irregular - A fib on tele Abdomen: normal bowel sounds, soft, non tender, non distended Extremities: no edema Neurologic/Psychiatric: abnormal gait, alert, responsive Musculoskeletal: atrophy - BLE Microbiology Date/Time Source Procedure Growth Status 12/09/16 14:47 Urine,Clean Catch Urine Culture - Final Diphtheroids Streptococcus Viridans Complete Laboratory Tests 12/10/16 17:10: Total Creatine Kinase 70066P 12/10/16 17:18: Triglycerides Level 71, Cholesterol Level 139, LDL Cholesterol 63, HDL Cholesterol 62H, Cholesterol/HDL Ratio 2.2L 12/11/16 03:30: White Blood Count 10.9H, Red Blood Count 4.22, Hemoglobin 13.5, Hematocrit 40.1 , Mean Corpuscular Volume 95, Mean Corpuscular Hemoglobin 32.0H, Mean Corpuscular Hemoglobin Concent 33.7, Red Cell Distribution Width 12.3, Platelet Count 200, Mean Platelet Volume 7.7, Neutrophils (%) (Auto) 70.4, Lymphocytes (% ) (Auto) 14.6L, Monocytes (%) (Auto) 14.2H, Eosinophils (%) (Auto) 0.1, Basophils (%) (Auto) 0.8, Prothrombin Time 12.1H, Prothromb Time International Ratio 1.2H, Activated Partial Thromboplast Time 38H, Sodium Level 141, Potassium Level 3.6, Chloride Level 100, Carbon Dioxide Level 26, Anion Gap 15, Blood Urea Nitrogen 11, Creatinine 1.2H, Estimat Glomerular Filtration Rate , Glucose Level 124H, Calcium Level 9.1, Phosphorus Level 2.6, Magnesium Level 2.1 , Total Bilirubin 0.4, Aspartate Amino Transf (AST/SGOT) 180H, Alanine Aminotransferase (ALT/SGPT) 49H, Alkaline Phosphatase 66, Creatine Kinase MB 6.2H, Troponin I < 0.30, Total Protein 7.2, Albumin 3.2L, Globulin 4.0, Albumin/ Globulin Ratio 0.8L, Thyroid Stimulating Hormone (TSH) 1.820 Current Medications Medications (Trade) Dose Ordered Sig/Trudy Route PRN Reason Start Time Stop Time Status Last Admin Dose Admin Acetaminophen (Tylenol) 650 mg Q4H PRN ORAL fever 12/09/16 14:45 01/08/17 14:44 Al Hydroxide/Mg Hydroxide (Mylanta II) 30 ml Q6H PRN ORAL dyspepsia 12/09/16 14:45 01/08/17 14:44 Albuterol/ Ipratropium (DuoNeb 0.5-3(2.5)mg/3ml) 3 ml Q4H PRN HHN Shortness of Breath 12/09/16 14:45 12/14/16 14:44 Apixaban (Eliquis) 5 mg BID ORAL 12/11/16 09:00 01/10/17 08:59 Ceftriaxone Sodium 1 gm/ Dextrose 55 ml @ 110 mls/hr Q24H IVPB 12/10/16 16:00 12/17/16 15:59 12/10/16 15:56 Clonidine HCl (Catapres) 0.1 mg Q4H PRN ORAL SBP > 160 12/09/16 14:45 01/08/17 14:44 Clopidogrel Bisulfate (Plavix) 75 mg DAILY ORAL 12/11/16 09:00 01/10/17 08:59 Dextrose (Dextrose 50%) STAT PRN IV Hypoglycemia 12/09/16 14:45 01/08/17 14:44 Dextrose/Sodium Chloride 1,000 ml @ 75 mls/hr [id number] IV 12/10/16 15:00 01/09/17 14:59 12/11/16 05:00 Diltiazem HCl (Cardizem) 10 mg Q1H PRN IV HR > SUSTAINED 120 12/10/16 08:15 01/09/17 08:14 12/10/16 10:48 Lorazepam (Ativan 2mg/ml 1ml) 0.5 mg Q4H PRN IV For Anxiety 12/09/16 14:45 12/16/16 14:44 12/10/16 12:14 Metoprolol Tartrate (Lopressor) 5 mg QIDPRN PRN IVP heart rate greater than 115 12/10/16 19:00 01/09/17 18:59 Metoprolol Tartrate (Lopressor) 75 mg Q12HR ORAL 12/11/16 09:00 01/10/17 08:59 Morphine Sulfate (Morphine Sulfate) 1 mg Q4H PRN IVP For Pain 7-10 12/09/16 14:45 12/16/16 14:44 12/10/16 10:06 Nitroglycerin (Ntg) 0.4 mg Q5M X 3 DOSES PRN SL Prn Chest Pain 12/09/16 14:45 01/08/17 14:44 Ondansetron HCl (Zofran) 4 mg Q6H PRN IVP Nausea & Vomiting 12/09/16 14:45 01/08/17 14:44 Pantoprazole (Protonix) 40 mg BID ORAL 12/10/16 18:00 01/09/17 17:59 12/10/16 17:16 Polyethylene Glycol (Miralax) 17 gm HSPRN PRN ORAL Constipation 12/09/16 14:45 01/08/17 14:44 Quetiapine Fumarate (SEROquel) 100 mg DAILY ORAL 12/11/16 09:00 01/10/17 08:59 Temazepam (Restoril) 15 mg HSPRN PRN ORAL Insomnia 12/09/16 14:45 12/16/16 14:44 Valproic Acid (Depakene) 250 mg TID ORAL 12/10/16 18:00 01/09/17 17:59 12/10/16 17:15 [facility]derEl[facility] CenterYuki Quiles NP Dec 11, 2016 07:35
[2016-12-11] MEDS ORDERED: Metoprolol Succinate XL 100mg tab ORAL SCH (09:00)
[2016-12-11] MEDS: Eliquis 2.5mg tablet ORAL SCH ×2 (09:32→17:31)
[2016-12-11] MEDS: Metoprolol 25mg tab ORAL SCH ×2 (09:41→20:33)
--- NOTE | 2016-12-11 14:15 | Cardiology Progress Note ---
Assessment/Plan Problem List: (1) Atrial fibrillation (2) dementia vascular (3) Anemia (4) Fall Status: stable, progressing Status Narrative Pt w/ permanent AF/ sick sinus syndrome S/p permanent pacemaker w/ appropriate pacing/sensing on telemetry s/p fall, likely nonsyncopal Assessment/Plan Continue metoprolol for rate control and apixaban for prevention of embolic complications. She is at inc bleeding risk due to falls. However, CHADS VASC score is 4 (age, vascular disease, female gender), and high CVA risk. Subjective ROS Limited/Unobtainable: Yes Subjective Cardiology for Dr. Tomas sedated. No respiratory distress Objective Last 24 Hour Vital Signs Date Time Temp Pulse Resp B/P (MAP) Pulse Ox O2 Delivery O2 Flow Rate FiO2 12/11/16 11:25 96.6 85 18 123/57 99 Room Air 12/11/16 09:41 101 122/72 12/11/16 08:35 98 12/11/16 08:30 101 12/11/16 08:05 85 20 Room Air 21 12/11/16 08:03 96.3 93 18 150/97 100 Room Air 12/11/16 08:00 101 12/11/16 05:15 98 132/64 12/11/16 04:00 98.6 85 20 132/74 95 Room Air 12/11/16 04:00 108 12/11/16 00:00 98.0 72 20 110/76 97 Room Air 12/11/16 00:00 97 12/10/16 21:07 98 118/77 12/10/16 20:00 101 12/10/16 19:36 98.2 98 20 118/77 99 Room Air 12/10/16 18:54 126 121/61 12/10/16 16:00 119 12/10/16 16:00 97.8 80 21 138/87 97 Room Air General Appearance: WD/WN, no apparent distress, lethargic EENT: PERRL/EOMI Neck: supple, no JVD Rhythm: Afib Cardiovascular: no gallop/murmur, irregularly irregular Respiratory/Chest: lungs clear Abdomen: non tender, soft Intake and Output 12/11/16 12/12/16 19:00 07:00 Intake Total 100 ml Balance 100 ml Intake Oral 100 ml # Voids 2 Laboratory Tests Test 12/10/16 17:10 12/10/16 17:18 12/11/16 03:30 Total Creatine Kinase 06091 U/L (26-140) H Triglycerides Level 71 mg/dL (< 150) Cholesterol Level 139 mg/dL (< 200) LDL Cholesterol 63 mg/dL (60-99) HDL Cholesterol 62 mg/dL (> 60) H Cholesterol/HDL Ratio 2.2 (3.3-4.4) L White Blood Count 10.9 K/UL (4.8-10.8) H Red Blood Count 4.22 M/UL (4.20-5.40) Hemoglobin 13.5 G/DL (12.0-16.0) Hematocrit 40.1 % (37.0-47.0) Mean Corpuscular Volume 95 FL (80-99) Mean Corpuscular Hemoglobin 32.0 PG (27.0-31.0) H Mean Corpuscular Hemoglobin Concent 33.7 G/DL (32.0-36.0) Red Cell Distribution Width 12.3 % (11.6-14.8) Platelet Count 200 K/UL (150-450) Mean Platelet Volume 7.7 FL (6.5-10.1) Neutrophils (%) (Auto) 70.4 % (45.0-75.0) Lymphocytes (%) (Auto) 14.6 % (20.0-45.0) L Monocytes (%) (Auto) 14.2 % (1.0-10.0) H Eosinophils (%) (Auto) 0.1 % (0.0-3.0) Basophils (%) (Auto) 0.8 % (0.0-2.0) Prothrombin Time 12.1 SEC (9.30-11.50) H Prothromb Time International Ratio 1.2 (0.9-1.1) H Activated Partial Thromboplast Time 38 SEC (23-33) H Sodium Level 141 mEQ/L (135-145) Potassium Level 3.6 mEQ/L (3.4-4.9) Chloride Level 100 mEQ/L (98-107) Carbon Dioxide Level 26 mEQ/L (20-30) Anion Gap 15 (5-15) Blood Urea Nitrogen 11 mg/dL (7-23) Creatinine 1.2 mg/dL (0.5-0.9) H Estimat Glomerular Filtration Rate mL/min (>60) Glucose Level 124 mg/dL (74-106) H Calcium Level 9.1 mg/dL (8.6-10.2) Phosphorus Level 2.6 mg/dL (2.5-4.8) Magnesium Level 2.1 mg/dL (1.7-2.5) Total Bilirubin 0.4 mg/dL (0.0-1.2) Aspartate Amino Transf (AST/SGOT) 180 U/L (5-40) H Alanine Aminotransferase (ALT/SGPT) 49 U/L (3-33) H Alkaline Phosphatase 66 U/L (35-104) Creatine Kinase MB 6.2 ng/mL (< 3.8) H Troponin I < 0.30 ng/mL (<=0.30) Total Protein 7.2 g/dL (6.6-8.7) Albumin 3.2 g/dL (3.5-5.2) L Globulin 4.0 g/dL Albumin/Globulin Ratio 0.8 (1.0-2.7) L Thyroid Stimulating Hormone (TSH) 1.820 uIU/mL (0.300-4.500) Microbiology Date/Time Source Procedure Growth Status 12/09/16 14:47 Urine,Clean Catch Urine Culture - Final Diphtheroids Streptococcus Viridans Complete WILL URIAS Dec 11, 2016 14:15
[2016-12-11] MEDS ORDERED: Tubing IV Secondary IV ONE (15:28)
--- NOTE | 2016-12-11 16:15 | Internal Med Progress Note ---
Subjective Date of Service: Dec 11, 2016 Physician Name Patel,Mayank Attending Physician Sim Engel MD Current Medications Medications (Trade) Dose Ordered Sig/Trudy Route PRN Reason Start Time Stop Time Status Last Admin Dose Admin Acetaminophen (Tylenol) 650 mg Q4H PRN ORAL fever 12/09/16 14:45 01/08/17 14:44 Al Hydroxide/Mg Hydroxide (Mylanta II) 30 ml Q6H PRN ORAL dyspepsia 12/09/16 14:45 01/08/17 14:44 Albuterol/ Ipratropium (DuoNeb 0.5-3(2.5)mg/3ml) 3 ml Q4H PRN HHN Shortness of Breath 12/09/16 14:45 12/14/16 14:44 Apixaban (Eliquis) 5 mg BID ORAL 12/11/16 09:00 01/10/17 08:59 12/11/16 09:32 Ceftriaxone Sodium 1 gm/ Dextrose 55 ml @ 110 mls/hr Q24H IVPB 12/10/16 16:00 12/17/16 15:59 12/10/16 15:56 Clonidine HCl (Catapres) 0.1 mg Q4H PRN ORAL SBP > 160 12/09/16 14:45 01/08/17 14:44 Clopidogrel Bisulfate (Plavix) 75 mg DAILY ORAL 12/11/16 09:00 01/10/17 08:59 12/11/16 09:32 Dextrose (Dextrose 50%) STAT PRN IV Hypoglycemia 12/09/16 14:45 01/08/17 14:44 Dextrose/Sodium Chloride 1,000 ml @ 75 mls/hr [id number] IV 12/10/16 15:00 01/09/17 14:59 12/11/16 05:00 Diltiazem HCl (Cardizem) 10 mg Q1H PRN IV HR > SUSTAINED 120 12/10/16 08:15 01/09/17 08:14 12/10/16 10:48 Lorazepam (Ativan 2mg/ml 1ml) 0.5 mg Q4H PRN IV For Anxiety 12/09/16 14:45 12/16/16 14:44 12/10/16 12:14 Metoprolol Tartrate (Lopressor) 5 mg QIDPRN PRN IVP heart rate greater than 115 12/10/16 19:00 01/09/17 18:59 Metoprolol Tartrate (Lopressor) 75 mg Q12HR ORAL 12/11/16 09:00 01/10/17 08:59 12/11/16 09:41 Morphine Sulfate (Morphine Sulfate) 1 mg Q4H PRN IVP For Pain 7-10 12/09/16 14:45 12/16/16 14:44 12/10/16 10:06 Nitroglycerin (Ntg) 0.4 mg Q5M X 3 DOSES PRN SL Prn Chest Pain 12/09/16 14:45 01/08/17 14:44 Ondansetron HCl (Zofran) 4 mg Q6H PRN IVP Nausea & Vomiting 12/09/16 14:45 01/08/17 14:44 Pantoprazole (Protonix) 40 mg BID ORAL 12/10/16 18:00 01/09/17 17:59 12/11/16 09:32 Polyethylene Glycol (Miralax) 17 gm HSPRN PRN ORAL Constipation 12/09/16 14:45 01/08/17 14:44 Quetiapine Fumarate (SEROquel) 100 mg DAILY ORAL 12/11/16 09:00 01/10/17 08:59 12/11/16 09:31 Temazepam (Restoril) 15 mg HSPRN PRN ORAL Insomnia 12/09/16 14:45 12/16/16 14:44 Valproic Acid (Depakene) 250 mg TID ORAL 12/10/16 18:00 01/09/17 17:59 12/11/16 13:00 Allergies: Coded Allergies: No Known Allergies (Unverified , 10/22/13) ROS Limited/Unobtainable: No Constitutional: Reports: no symptoms HEENT: Reports: no symptoms Cardiovascular: Reports: no symptoms Respiratory: Reports: no symptoms Gastrointestinal/Abdominal: Reports: no symptoms Genitourinary: Reports: no symptoms Neurologic/Psychiatric: Reports: no symptoms Subjective 81 YO F admitted with altered mental status. Cover for Sung Engel. Objective Last Vital Signs Date Time Temp Pulse Resp B/P (MAP) Pulse Ox O2 Delivery O2 Flow Rate FiO2 12/11/16 15:40 96.6 79 18 144/54 95 Room Air 12/11/16 08:05 21 Laboratory Tests Test 12/10/16 17:10 12/10/16 17:18 12/11/16 03:30 Total Creatine Kinase 92834 U/L (26-140) H Triglycerides Level 71 mg/dL (< 150) Cholesterol Level 139 mg/dL (< 200) LDL Cholesterol 63 mg/dL (60-99) HDL Cholesterol 62 mg/dL (> 60) H Cholesterol/HDL Ratio 2.2 (3.3-4.4) L White Blood Count 10.9 K/UL (4.8-10.8) H Red Blood Count 4.22 M/UL (4.20-5.40) Hemoglobin 13.5 G/DL (12.0-16.0) Hematocrit 40.1 % (37.0-47.0) Mean Corpuscular Volume 95 FL (80-99) Mean Corpuscular Hemoglobin 32.0 PG (27.0-31.0) H Mean Corpuscular Hemoglobin Concent 33.7 G/DL (32.0-36.0) Red Cell Distribution Width 12.3 % (11.6-14.8) Platelet Count 200 K/UL (150-450) Mean Platelet Volume 7.7 FL (6.5-10.1) Neutrophils (%) (Auto) 70.4 % (45.0-75.0) Lymphocytes (%) (Auto) 14.6 % (20.0-45.0) L Monocytes (%) (Auto) 14.2 % (1.0-10.0) H Eosinophils (%) (Auto) 0.1 % (0.0-3.0) Basophils (%) (Auto) 0.8 % (0.0-2.0) Prothrombin Time 12.1 SEC (9.30-11.50) H Prothromb Time International Ratio 1.2 (0.9-1.1) H Activated Partial Thromboplast Time 38 SEC (23-33) H Sodium Level 141 mEQ/L (135-145) Potassium Level 3.6 mEQ/L (3.4-4.9) Chloride Level 100 mEQ/L (98-107) Carbon Dioxide Level 26 mEQ/L (20-30) Anion Gap 15 (5-15) Blood Urea Nitrogen 11 mg/dL (7-23) Creatinine 1.2 mg/dL (0.5-0.9) H Estimat Glomerular Filtration Rate mL/min (>60) Glucose Level 124 mg/dL (74-106) H Calcium Level 9.1 mg/dL (8.6-10.2) Phosphorus Level 2.6 mg/dL (2.5-4.8) Magnesium Level 2.1 mg/dL (1.7-2.5) Total Bilirubin 0.4 mg/dL (0.0-1.2) Aspartate Amino Transf (AST/SGOT) 180 U/L (5-40) H Alanine Aminotransferase (ALT/SGPT) 49 U/L (3-33) H Alkaline Phosphatase 66 U/L (35-104) Creatine Kinase MB 6.2 ng/mL (< 3.8) H Troponin I < 0.30 ng/mL (<=0.30) Total Protein 7.2 g/dL (6.6-8.7) Albumin 3.2 g/dL (3.5-5.2) L Globulin 4.0 g/dL Albumin/Globulin Ratio 0.8 (1.0-2.7) L Thyroid Stimulating Hormone (TSH) 1.820 uIU/mL (0.300-4.500) Microbiology Date/Time Source Procedure Growth Status 12/09/16 14:47 Urine,Clean Catch Urine Culture - Final Diphtheroids Streptococcus Viridans Complete Intake and Output 12/11/16 12/12/16 19:00 07:00 Intake Total 700 ml Balance 700 ml Intake Oral 100 ml IV Total 600 ml # Voids 2 Objective General: alert, cooperative, no distress, appears stated age Head: normocephalic, without obvious abnormality, atraumatic Eyes: conjunctivae/corneas clear. PERRL, EOM's intact Throat: lips, mucosa, and tongue normal. MMM Neck: supple, symmetrical, trachea midline, and no JVD Lungs: clear to auscultation bilaterally Heart: regular rate and rhythm, S1, S2 normal, no murmur, click, rub or gallop Abdomen: soft, non-tender, non-distended, bowel sounds normal; no masses or organomegaly Extremities: extremities normal, atraumatic, no cyanosis or edema Pulses: 2+ and symmetric Skin: skin color, texture, turgor normal; no rashes or lesions Neurologic: grossly normal, no focal deficits Assessment/Plan Problem List: (1) Left knee pain Assessment & Plan: Effusion by CT (2) Pacemaker (3) Altered mental status (4) Toxic encephalopathy (5) UTI (urinary tract infection) Assessment & Plan: Diptheroids and Strep viridans.?contamination? Cont ceftriaxone. (6) Atrial fibrillation Assessment & Plan: See cardiology note. (7) Hypertension Assessment & Plan: continue lopressor. Status: not improved MAYANK PATEL Dec 11, 2016 16:15
[2016-12-11] MEDS: cefTRIAXone 1 GM in D5W 55 ML IVPB SCH (17:32)
[2016-12-11] MEDS: Morphine Sulfate 2mg/ml Inj IVP PRN (20:34)
[2016-12-12 03:45] VITALS: BP 141/62
[2016-12-12 05:10] LABS: EOSINOPHILS % (AUTO) 0.3 % (0.0-3.0); LYMPHOCYTES % (AUTO) 18.6 % (20.0-45.0); MEAN CORPUSCULAR HEMOGLOBIN 30.7 PG (27.0-31.0); MEAN CORPUSCULAR HGB CONC 32.4 G/DL (32.0-36.0); MEAN CORPUSCULAR VOLUME 95 FL (80-99); MEAN PLATELET VOLUME 7.9 FL (6.5-10.1); MONOCYTES % (AUTO) 13.7 % (1.0-10.0); NEUTROPHILS % (AUTO) 66.4 % (45.0-75.0); PLATELET COUNT 186 K/UL (150-450); RED BLOOD COUNT 4.17 M/UL (4.20-5.40); RED CELL DISTRIBUTION WIDTH 12.5 % (11.6-14.8); WHITE BLOOD COUNT 9.3 K/UL (4.8-10.8)
[2016-12-12 05:48] LABS: ALANINE AMINOTRANSFERASE 41 U/L (3-33); ALBUMIN/GLOBULIN RATIO 0.7 (1.0-2.7); ANION GAP 16 (5-15); ASPARTATE AMINO TRANSFERASE 112 U/L (5-40); CALCIUM 8.7 mg/dL (8.6-10.2); CARBON DIOXIDE 24 mEQ/L (20-30); CHLORIDE 102 mEQ/L (98-107); CREATININE 1.2 mg/dL (0.5-0.9); HEMOLYSIS 1; POTASSIUM 3.6 mEQ/L (3.4-4.9); SODIUM 142 mEQ/L (135-145)
[2016-12-12 06:16] LABS: AMMONIA 37 umol/L (11-51)
[2016-12-12] MEDS: D5 1/2NS 1,000 ML IV SCH ×2 (06:38→21:06)
[2016-12-12 08:00] VITALS: BP 162/95
[2016-12-12] MEDS ORDERED: D5 1/2NS 1000ml IV ONE (08:49)
[2016-12-12] MEDS: Eliquis 2.5mg tablet ORAL SCH ×2 (09:20→17:42)
[2016-12-12] MEDS: Metoprolol 25mg tab ORAL SCH ×2 (09:21→21:12)
--- NOTE | 2016-12-12 10:24 | Pulmonology Progress Note ---
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 safety of a/coagulation in lieu of recent Fall ? increased risk to benefit ratio BP management with BB. Continue Plavix TSH, lipid panel -WNL Carotid Duplex ECHO with pEF 55% and RVSP of 58 c/w moderate to severe pulmonary HTN CT head no acute findings CXR negative O2 HHN prn orthostatic VS with evidence of orthostasis from lying to sitting x 1 continue IVF venous Duplex BLE IVF, CK trending down but still high -6250 abdominal US and hepatitis panel ( prior admission stable LFT). increased ratio of AST to ALT ? ETOH abuse GGT-stable , ammonia level -WNL monitor renal parameters, lytes, replace as needed CT C spine no acute bony trauma X ray L knee no acute bony trauma CT L knee moderate to severe OA pain management abx, urine cx + Strep viridans Fall precautions PT/OT case discussed and evaluated by supervising physician Subjective Allergies: Coded Allergies: No Known Allergies (Unverified , 10/22/13) Subjective denies chest pain, SOB, remains in A fib rate controlled denies chest pain, SOB but confused and poor historian Objective Last 24 Hour Vital Signs Date Time Temp Pulse Resp B/P (MAP) Pulse Ox O2 Delivery O2 Flow Rate FiO2 12/12/16 09:21 83 149/80 12/12/16 08:05 91 12/12/16 08:00 97.9 85 18 162/95 100 Room Air 12/12/16 08:00 85 12/12/16 07:26 95 18 Room Air 12/12/16 04:00 85 12/12/16 03:45 98.1 75 19 141/62 99 Room Air 12/12/16 00:00 64 12/11/16 23:54 98.3 69 18 144/70 98 Room Air 12/11/16 20:35 18 97 Room Air 12/11/16 20:33 98 143/61 12/11/16 20:11 92 98 12/11/16 20:10 98.6 92 19 145/78 91 Room Air 12/11/16 20:00 95 12/11/16 19:47 82 20 Room Air 12/11/16 16:00 79 12/11/16 15:40 96.6 79 18 144/54 95 Room Air 12/11/16 12:00 81 12/11/16 11:25 96.6 85 18 123/57 99 Room Air Intake and Output 12/12/16 12/13/16 19:00 07:00 Intake Total 120 ml Balance 120 ml Intake Oral 120 ml # Voids 1 Objective General Appearance: no acute distress, other - awake, alert, confused elderly AA female in NAD HEENT: normocephalic, atraumatic, anicteric, mucous membranes moist Respiratory/Chest: lungs clear, no accessory muscle use, chest wall tender Cardiovascular: normal peripheral pulses, no JVD, irregularly irregular - A fib on tele Abdomen: normal bowel sounds, soft, non tender, non distended Extremities: no edema Neurologic/Psychiatric: abnormal gait, alert, responsive Musculoskeletal: atrophy - BLE Microbiology Date/Time Source Procedure Growth Status 12/09/16 14:47 Urine,Clean Catch Urine Culture - Final Diphtheroids Streptococcus Viridans Complete Laboratory Tests 12/12/16 04:20: White Blood Count 9.3, Red Blood Count 4.17L, Hemoglobin 12.8, Hematocrit 39.5, Mean Corpuscular Volume 95, Mean Corpuscular Hemoglobin 30.7, Mean Corpuscular Hemoglobin Concent 32.4, Red Cell Distribution Width 12.5, Platelet Count 186, Mean Platelet Volume 7.9, Neutrophils (%) (Auto) 66.4, Lymphocytes (%) (Auto) 18.6L, Monocytes (%) (Auto) 13.7H, Eosinophils (%) (Auto) 0.3, Basophils (%) ( Auto) 1.0, Sodium Level 142, Potassium Level 3.6, Chloride Level 102, Carbon Dioxide Level 24, Anion Gap 16H, Blood Urea Nitrogen 10, Creatinine 1.2H, Estimat Glomerular Filtration Rate , Glucose Level 121H, Calcium Level 8.7, Total Bilirubin 0.3, Gamma Glutamyl Transpeptidase 17, Aspartate Amino Transf ( AST/SGOT) 112H, Alanine Aminotransferase (ALT/SGPT) 41H, Alkaline Phosphatase 60 , Ammonia 37, Total Creatine Kinase 6250H, Total Protein 7.0, Albumin 3.0L, Globulin 4.0, Albumin/Globulin Ratio 0.7L, Hepatitis A IgM Antibody [Pending], Hepatitis B Surface Antigen [Pending], Hepatitis B Core IgM Antibody [Pending], Hepatitis C Antibody [Pending] Current Medications Medications (Trade) Dose Ordered Sig/Trudy Route PRN Reason Start Time Stop Time Status Last Admin Dose Admin Acetaminophen (Tylenol) 650 mg Q4H PRN ORAL fever 12/09/16 14:45 01/08/17 14:44 12/12/16 04:09 Al Hydroxide/Mg Hydroxide (Mylanta II) 30 ml Q6H PRN ORAL dyspepsia 12/09/16 14:45 01/08/17 14:44 Albuterol/ Ipratropium (DuoNeb 0.5-3(2.5)mg/3ml) 3 ml Q4H PRN HHN Shortness of Breath 12/09/16 14:45 12/14/16 14:44 Apixaban (Eliquis) 5 mg BID ORAL 12/11/16 09:00 01/10/17 08:59 12/12/16 09:20 Ceftriaxone Sodium 1 gm/ Dextrose 55 ml @ 110 mls/hr Q24H IVPB 12/10/16 16:00 12/17/16 15:59 12/11/16 17:32 Clonidine HCl (Catapres) 0.1 mg Q4H PRN ORAL SBP > 160 12/09/16 14:45 01/08/17 14:44 Clopidogrel Bisulfate (Plavix) 75 mg DAILY ORAL 12/11/16 09:00 01/10/17 08:59 12/12/16 09:20 Dextrose (Dextrose 50%) STAT PRN IV Hypoglycemia 12/09/16 14:45 01/08/17 14:44 Dextrose/Sodium Chloride 1,000 ml @ 75 mls/hr [id number] IV 12/10/16 15:00 01/09/17 14:59 12/12/16 06:38 Diltiazem HCl (Cardizem) 10 mg Q1H PRN IV HR > SUSTAINED 120 12/10/16 08:15 01/09/17 08:14 12/10/16 10:48 Lorazepam (Ativan 2mg/ml 1ml) 0.5 mg Q4H PRN IV For Anxiety 12/09/16 14:45 12/16/16 14:44 12/10/16 12:14 Metoprolol Tartrate (Lopressor) 5 mg QIDPRN PRN IVP heart rate greater than 115 12/10/16 19:00 01/09/17 18:59 Metoprolol Tartrate (Lopressor) 75 mg Q12HR ORAL 12/11/16 09:00 01/10/17 08:59 12/12/16 09:21 Morphine Sulfate (Morphine Sulfate) 1 mg Q4H PRN IVP For Pain 7-10 12/09/16 14:45 12/16/16 14:44 12/11/16 20:34 Nitroglycerin (Ntg) 0.4 mg Q5M X 3 DOSES PRN SL Prn Chest Pain 12/09/16 14:45 01/08/17 14:44 Ondansetron HCl (Zofran) 4 mg Q6H PRN IVP Nausea & Vomiting 12/09/16 14:45 01/08/17 14:44 Pantoprazole (Protonix) 40 mg BID ORAL 12/10/16 18:00 01/09/17 17:59 12/12/16 09:20 Polyethylene Glycol (Miralax) 17 gm HSPRN PRN ORAL Constipation 12/09/16 14:45 01/08/17 14:44 Quetiapine Fumarate (SEROquel) 100 mg DAILY ORAL 12/11/16 09:00 01/10/17 08:59 12/12/16 09:19 Temazepam (Restoril) 15 mg HSPRN PRN ORAL Insomnia 12/09/16 14:45 12/16/16 14:44 Valproic Acid (Depakene) 250 mg TID ORAL 12/10/16 18:00 01/09/17 17:59 12/12/16 09:20 [facility]Bur[facility] HospitalYuki Quiles NP Dec 12, 2016 10:24
[2016-12-12] MEDS ORDERED: DuoNeb 0.5-3(2.5)mg/3ml neb HHN PRN (10:45)
--- NOTE | 2016-12-12 11:34 | Diagnostic Imaging Report ---
Indication: Elevated liver function tests Technique: Ultrasound of the abdomen. Comparison: None Findings: Liver: The liver is normal in size and echogenicity. No focal abnormalities are noted. Gallbladder: The gallbladder is normal. No stones are visualized. The wall is not thickened. Common bile duct: Normal in size. Pancreas: The visualized portion of pancreas is normal in echogenicity. There are no masses. Kidneys: The kidneys are normal in size and echogenicity. There is no hydronephrosis. Spleen: Not adequately visualized. Aorta: The visualized portion of the aorta is normal in caliber. IVC: The demonstrated portion of the inferior vena cava is normal. Impression: Inadequate visualization of the spleen. Otherwise negative.
--- NOTE | 2016-12-12 12:18 | Cardiology Progress Note ---
Assessment/Plan Problem List: (1) Atrial fibrillation (2) dementia vascular (3) Anemia (4) Fall (5) Hypertension Status: stable, progressing Status Narrative Pt w/ permanent AF/ sick sinus syndrome S/p permanent pacemaker w/ appropriate pacing/sensing on telemetry s/p fall, likely nonsyncopal Assessment/Plan Continue metoprolol for rate control and apixaban for prevention of embolic complications. Add norvasc for bp control Subjective ROS Limited/Unobtainable: No Subjective Cardiology for Dr. Tomas Awake/alert. no c/o Objective Last 24 Hour Vital Signs Date Time Temp Pulse Resp B/P (MAP) Pulse Ox O2 Delivery O2 Flow Rate FiO2 12/12/16 09:21 83 149/80 12/12/16 08:05 91 12/12/16 08:00 97.9 85 18 162/95 100 Room Air 12/12/16 08:00 85 12/12/16 07:26 95 18 Room Air 12/12/16 04:00 85 12/12/16 03:45 98.1 75 19 141/62 99 Room Air 12/12/16 00:00 64 12/11/16 23:54 98.3 69 18 144/70 98 Room Air 12/11/16 20:35 18 97 Room Air 12/11/16 20:33 98 143/61 12/11/16 20:11 92 98 12/11/16 20:10 98.6 92 19 145/78 91 Room Air 12/11/16 20:00 95 12/11/16 19:47 82 20 Room Air 12/11/16 16:00 79 12/11/16 15:40 96.6 79 18 144/54 95 Room Air General Appearance: WD/WN, no apparent distress, alert EENT: PERRL/EOMI, other - L facial ecchymosis Neck: non-tender, supple, other - healed L neck surgical scar Rhythm: Afib Cardiovascular: no gallop/murmur, irregularly irregular Respiratory/Chest: lungs clear, normal breath sounds Abdomen: non tender, soft Extremities: no swelling Intake and Output 12/12/16 12/13/16 19:00 07:00 Intake Total 120 ml Balance 120 ml Intake Oral 120 ml # Voids 1 Laboratory Tests Test 12/12/16 04:20 White Blood Count 9.3 K/UL (4.8-10.8) Red Blood Count 4.17 M/UL (4.20-5.40) L Hemoglobin 12.8 G/DL (12.0-16.0) Hematocrit 39.5 % (37.0-47.0) Mean Corpuscular Volume 95 FL (80-99) Mean Corpuscular Hemoglobin 30.7 PG (27.0-31.0) Mean Corpuscular Hemoglobin Concent 32.4 G/DL (32.0-36.0) Red Cell Distribution Width 12.5 % (11.6-14.8) Platelet Count 186 K/UL (150-450) Mean Platelet Volume 7.9 FL (6.5-10.1) Neutrophils (%) (Auto) 66.4 % (45.0-75.0) Lymphocytes (%) (Auto) 18.6 % (20.0-45.0) L Monocytes (%) (Auto) 13.7 % (1.0-10.0) H Eosinophils (%) (Auto) 0.3 % (0.0-3.0) Basophils (%) (Auto) 1.0 % (0.0-2.0) Sodium Level 142 mEQ/L (135-145) Potassium Level 3.6 mEQ/L (3.4-4.9) Chloride Level 102 mEQ/L (98-107) Carbon Dioxide Level 24 mEQ/L (20-30) Anion Gap 16 (5-15) H Blood Urea Nitrogen 10 mg/dL (7-23) Creatinine 1.2 mg/dL (0.5-0.9) H Estimat Glomerular Filtration Rate mL/min (>60) Glucose Level 121 mg/dL (74-106) H Calcium Level 8.7 mg/dL (8.6-10.2) Total Bilirubin 0.3 mg/dL (0.0-1.2) Gamma Glutamyl Transpeptidase 17 U/L (5-36) Aspartate Amino Transf (AST/SGOT) 112 U/L (5-40) H Alanine Aminotransferase (ALT/SGPT) 41 U/L (3-33) H Alkaline Phosphatase 60 U/L (35-104) Ammonia 37 umol/L (11-51) Total Creatine Kinase 6250 U/L (26-140) H Total Protein 7.0 g/dL (6.6-8.7) Albumin 3.0 g/dL (3.5-5.2) L Globulin 4.0 g/dL Albumin/Globulin Ratio 0.7 (1.0-2.7) L Hepatitis A IgM Antibody Pending Hepatitis B Surface Antigen Pending Hepatitis B Core IgM Antibody Pending Hepatitis C Antibody Pending Microbiology Date/Time Source Procedure Growth Status 12/09/16 14:47 Urine,Clean Catch Urine Culture - Final Diphtheroids Streptococcus Viridans Complete WILL URIAS Dec 12, 2016 12:18
[2016-12-12 12:48] VITALS: BP 149/67
[2016-12-12] MEDS: cefTRIAXone 1 GM in D5W 55 ML IVPB SCH (15:36)
[2016-12-12 16:15] VITALS: BP 119/52
--- NOTE | 2016-12-12 16:32 | Internal Med Progress Note ---
Subjective Date of Service: Dec 12, 2016 Physician Name Patel,Mayank Attending Physician Sim Engel MD Current Medications Medications (Trade) Dose Ordered Sig/Trudy Route PRN Reason Start Time Stop Time Status Last Admin Dose Admin Acetaminophen (Tylenol) 650 mg Q4H PRN ORAL fever 12/09/16 14:45 01/08/17 14:44 12/12/16 04:09 Al Hydroxide/Mg Hydroxide (Mylanta II) 30 ml Q6H PRN ORAL dyspepsia 12/09/16 14:45 01/08/17 14:44 Albuterol/ Ipratropium (DuoNeb 0.5-3(2.5)mg/3ml) 3 ml Q4H PRN HHN Shortness of Breath 12/12/16 10:45 12/17/16 23:59 Amlodipine Besylate (Norvasc) 2.5 mg DAILY ORAL 12/13/16 09:00 01/12/17 08:59 Apixaban (Eliquis) 5 mg BID ORAL 12/11/16 09:00 01/10/17 08:59 12/12/16 09:20 Ceftriaxone Sodium 1 gm/ Dextrose 55 ml @ 110 mls/hr Q24H IVPB 12/10/16 16:00 12/17/16 15:59 12/12/16 15:36 Clonidine HCl (Catapres) 0.1 mg Q4H PRN ORAL SBP > 160 12/09/16 14:45 01/08/17 14:44 Clopidogrel Bisulfate (Plavix) 75 mg DAILY ORAL 12/11/16 09:00 01/10/17 08:59 12/12/16 09:20 Dextrose (Dextrose 50%) STAT PRN IV Hypoglycemia 12/09/16 14:45 01/08/17 14:44 Dextrose/Sodium Chloride 1,000 ml @ 75 mls/hr [id number] IV 12/10/16 15:00 01/09/17 14:59 12/12/16 06:38 Diltiazem HCl (Cardizem) 10 mg Q1H PRN IV HR > SUSTAINED 120 12/10/16 08:15 01/09/17 08:14 12/10/16 10:48 Lorazepam (Ativan 2mg/ml 1ml) 0.5 mg Q4H PRN IV For Anxiety 12/09/16 14:45 12/16/16 14:44 12/10/16 12:14 Metoprolol Tartrate (Lopressor) 5 mg QIDPRN PRN IVP heart rate greater than 115 12/10/16 19:00 01/09/17 18:59 Metoprolol Tartrate (Lopressor) 75 mg Q12HR ORAL 12/11/16 09:00 01/10/17 08:59 12/12/16 09:21 Morphine Sulfate (Morphine Sulfate) 1 mg Q4H PRN IVP For Pain 10-1112/09/16 14:45 12/16/16 14:44 12/11/16 20:34 Nitroglycerin (Ntg) 0.4 mg Q5M X 3 DOSES PRN SL Prn Chest Pain 12/09/16 14:45 01/08/17 14:44 Ondansetron HCl (Zofran) 4 mg Q6H PRN IVP Nausea & Vomiting 12/09/16 14:45 01/08/17 14:44 Pantoprazole (Protonix) 40 mg BID ORAL 12/10/16 18:00 01/09/17 17:59 12/12/16 09:20 Polyethylene Glycol (Miralax) 17 gm HSPRN PRN ORAL Constipation 12/09/16 14:45 01/08/17 14:44 Quetiapine Fumarate (SEROquel) 100 mg DAILY ORAL 12/11/16 09:00 01/10/17 08:59 12/12/16 09:19 Temazepam (Restoril) 15 mg HSPRN PRN ORAL Insomnia 12/09/16 14:45 12/16/16 14:44 Valproic Acid (Depakene) 250 mg TID ORAL 12/10/16 18:00 01/09/17 17:59 12/12/16 13:16 Allergies: Coded Allergies: No Known Allergies (Unverified , 10/22/13) ROS Limited/Unobtainable: Yes Subjective 81 YO F admitted with altered mental status. Cover for Int Med-Dr Engel. Objective Last Vital Signs Date Time Temp Pulse Resp B/P (MAP) Pulse Ox O2 Delivery O2 Flow Rate FiO2 12/12/16 16:15 97.0 71 18 119/52 100 Room Air 12/11/16 08:05 21 Laboratory Tests Test 12/12/16 04:20 White Blood Count 9.3 K/UL (4.8-10.8) Red Blood Count 4.17 M/UL (4.20-5.40) L Hemoglobin 12.8 G/DL (12.0-16.0) Hematocrit 39.5 % (37.0-47.0) Mean Corpuscular Volume 95 FL (80-99) Mean Corpuscular Hemoglobin 30.7 PG (27.0-31.0) Mean Corpuscular Hemoglobin Concent 32.4 G/DL (32.0-36.0) Red Cell Distribution Width 12.5 % (11.6-14.8) Platelet Count 186 K/UL (150-450) Mean Platelet Volume 7.9 FL (6.5-10.1) Neutrophils (%) (Auto) 66.4 % (45.0-75.0) Lymphocytes (%) (Auto) 18.6 % (20.0-45.0) L Monocytes (%) (Auto) 13.7 % (1.0-10.0) H Eosinophils (%) (Auto) 0.3 % (0.0-3.0) Basophils (%) (Auto) 1.0 % (0.0-2.0) Sodium Level 142 mEQ/L (135-145) Potassium Level 3.6 mEQ/L (3.4-4.9) Chloride Level 102 mEQ/L (98-107) Carbon Dioxide Level 24 mEQ/L (20-30) Anion Gap 16 (5-15) H Blood Urea Nitrogen 10 mg/dL (7-23) Creatinine 1.2 mg/dL (0.5-0.9) H Estimat Glomerular Filtration Rate mL/min (>60) Glucose Level 121 mg/dL (74-106) H Calcium Level 8.7 mg/dL (8.6-10.2) Total Bilirubin 0.3 mg/dL (0.0-1.2) Gamma Glutamyl Transpeptidase 17 U/L (5-36) Aspartate Amino Transf (AST/SGOT) 112 U/L (5-40) H Alanine Aminotransferase (ALT/SGPT) 41 U/L (3-33) H Alkaline Phosphatase 60 U/L (35-104) Ammonia 37 umol/L (11-51) Total Creatine Kinase 6250 U/L (26-140) H Total Protein 7.0 g/dL (6.6-8.7) Albumin 3.0 g/dL (3.5-5.2) L Globulin 4.0 g/dL Albumin/Globulin Ratio 0.7 (1.0-2.7) L Hepatitis A IgM Antibody Pending Hepatitis B Surface Antigen Pending Hepatitis B Core IgM Antibody Pending Hepatitis C Antibody Pending Intake and Output 12/12/16 12/13/16 19:00 07:00 Intake Total 240 ml Balance 240 ml Intake Oral 240 ml # Voids 2 Objective General: alert, cooperative, no distress, appears stated age Head: normocephalic, without obvious abnormality, atraumatic Eyes: conjunctivae/corneas clear. PERRL, EOM's intact Throat: lips, mucosa, and tongue normal. MMM Neck: supple, symmetrical, trachea midline, and no JVD Lungs: clear to auscultation bilaterally Heart: regular rate and rhythm, S1, S2 normal, no murmur, click, rub or gallop Abdomen: soft, non-tender, non-distended, bowel sounds normal; no masses or organomegaly Extremities: extremities normal, atraumatic, no cyanosis or edema Pulses: 2+ and symmetric Skin: skin color, texture, turgor normal; no rashes or lesions Neurologic: grossly normal, no focal deficits Assessment/Plan Problem List: (1) Left knee pain Assessment & Plan: Effusion by CT (2) Pacemaker (3) Altered mental status (4) Toxic encephalopathy (5) UTI (urinary tract infection) Assessment & Plan: Diptheroids and Strep viridans.?contamination? Cont ceftriaxone. (6) Atrial fibrillation Assessment & Plan: Continue eliquis. See cardiology note. (7) Hypertension Assessment & Plan: continue lopressor. (8) Rhabdomyolysis Assessment & Plan: Continue IV fluids. follow renal function test Status: not improved MAYANK PATEL Dec 12, 2016 16:32
[2016-12-12 20:49] VITALS: BP 113/57
[2016-12-13] VITALS: BP 118/58
[2016-12-13 04:17] VITALS: BP 115/60
[2016-12-13 08:09] LABS: BASOPHILS % (AUTO) 0.9 % (0.0-2.0); EOSINOPHILS % (AUTO) 1.3 % (0.0-3.0); LYMPHOCYTES % (AUTO) 20.1 % (20.0-45.0); MEAN CORPUSCULAR HGB CONC 32.7 G/DL (32.0-36.0); MEAN CORPUSCULAR VOLUME 95 FL (80-99); MEAN PLATELET VOLUME 7.4 FL (6.5-10.1); MONOCYTES % (AUTO) 14.6 % (1.0-10.0); NEUTROPHILS % (AUTO) 63.2 % (45.0-75.0); PLATELET COUNT 198 K/UL (150-450); RED BLOOD COUNT 3.86 M/UL (4.20-5.40); RED CELL DISTRIBUTION WIDTH 12.2 % (11.6-14.8)
[2016-12-13 08:12] VITALS: BP 135/66
[2016-12-13 08:15] LABS: ANION GAP 11 (5-15); CALCIUM 8.2 mg/dL (8.6-10.2); CARBON DIOXIDE 26 mEQ/L (20-30); CHLORIDE 102 mEQ/L (98-107); CREATININE 1.1 mg/dL (0.5-0.9); HEMOLYSIS 2; POTASSIUM 3.4 mEQ/L (3.4-4.9); SODIUM 139 mEQ/L (135-145)
[2016-12-13] MEDS: Metoprolol 25mg tab ORAL SCH ×2 (09:02→21:22)
[2016-12-13] MEDS: Eliquis 2.5mg tablet ORAL SCH ×2 (09:03→18:43)
[2016-12-13] MEDS ORDERED: D5 1/2NS 1000ml IV ONE (09:09)
[2016-12-13] MEDS: D5 1/2NS 1,000 ML IV SCH (09:28)
[2016-12-13 11:28] VITALS: BP 123/58
--- NOTE | 2016-12-13 12:04 | Pulmonology Progress Note ---
Assessment/Plan Problems: (1) Acute encephalopathy (2) Rapid atrial fibrillation (3) Psychosis (4) Atrial fibrillation (5) dementia vascular (6) Cardiomyopathy Assessment/Plan heart rate controlled on Apixiban eating well dc IV fluids PT/OT pending discharge. Subjective ROS Limited/Unobtainable: No Constitutional: Reports: no symptoms HEENT: Repors: no symptoms Respiratory: Reports: no symptoms Cardiovascular: Reports: no symptoms Allergies: Coded Allergies: No Known Allergies (Unverified , 10/22/13) Objective Last 24 Hour Vital Signs Date Time Temp Pulse Resp B/P (MAP) Pulse Ox O2 Delivery O2 Flow Rate FiO2 12/13/16 11:28 98.1 77 18 123/58 100 Room Air 12/13/16 09:02 76 135/66 12/13/16 09:02 76 135/66 12/13/16 08:35 76 18 Room Air 21 12/13/16 08:12 98.2 89 18 135/66 100 Room Air 12/13/16 07:56 82 12/13/16 04:17 97.6 80 20 115/60 95 Room Air 12/13/16 04:00 74 12/13/16 00:00 76 12/13/16 00:00 97.3 82 20 118/58 95 Room Air 12/12/16 21:12 88 133/69 12/12/16 20:49 97.3 88 20 113/57 95 Room Air 12/12/16 20:00 81 12/12/16 19:30 90 18 Room Air 21 12/12/16 16:15 97.0 71 18 119/52 100 Room Air 12/12/16 16:00 68 12/12/16 12:48 97.2 82 18 149/67 100 Room Air Intake and Output 12/13/16 12/14/16 19:00 07:00 Intake Total 240 ml Balance 240 ml Intake Oral 240 ml # Voids 1 General Appearance: cachetic HEENT: normocephalic, atraumatic Respiratory/Chest: chest wall non-tender, lungs clear Cardiovascular: normal peripheral pulses Abdomen: normal bowel sounds, soft, non tender, no organomegaly Laboratory Tests 12/13/16 07:10: White Blood Count 8.0, Red Blood Count 3.86L, Hemoglobin 11.9L, Hematocrit 36.5L , Mean Corpuscular Volume 95, Mean Corpuscular Hemoglobin 31.0, Mean Corpuscular Hemoglobin Concent 32.7, Red Cell Distribution Width 12.2, Platelet Count 198, Mean Platelet Volume 7.4, Neutrophils (%) (Auto) 63.2, Lymphocytes (% ) (Auto) 20.1, Monocytes (%) (Auto) 14.6H, Eosinophils (%) (Auto) 1.3, Basophils (%) (Auto) 0.9, Sodium Level 139, Potassium Level 3.4, Chloride Level 102, Carbon Dioxide Level 26, Anion Gap 11, Blood Urea Nitrogen 13, Creatinine 1.1H, Estimat Glomerular Filtration Rate , Glucose Level 107H, Calcium Level 8.2L, Total Creatine Kinase 3440H Current Medications Medications (Trade) Dose Ordered Sig/Trudy Route PRN Reason Start Time Stop Time Status Last Admin Dose Admin Acetaminophen (Tylenol) 650 mg Q4H PRN ORAL fever 12/09/16 14:45 01/08/17 14:44 12/13/16 05:55 Al Hydroxide/Mg Hydroxide (Mylanta II) 30 ml Q6H PRN ORAL dyspepsia 12/09/16 14:45 01/08/17 14:44 Albuterol/ Ipratropium (DuoNeb 0.5-3(2.5)mg/3ml) 3 ml Q4H PRN HHN Shortness of Breath 12/12/16 10:45 12/17/16 23:59 Amlodipine Besylate (Norvasc) 2.5 mg DAILY ORAL 12/13/16 09:00 01/12/17 08:59 12/13/16 09:02 Apixaban (Eliquis) 5 mg BID ORAL 12/11/16 09:00 01/10/17 08:59 12/13/16 09:03 Ceftriaxone Sodium 1 gm/ Dextrose 55 ml @ 110 mls/hr Q24H IVPB 12/10/16 16:00 12/17/16 15:59 12/12/16 15:36 Clonidine HCl (Catapres) 0.1 mg Q4H PRN ORAL SBP > 160 12/09/16 14:45 01/08/17 14:44 Clopidogrel Bisulfate (Plavix) 75 mg DAILY ORAL 12/11/16 09:00 01/10/17 08:59 12/13/16 09:02 Dextrose (Dextrose 50%) STAT PRN IV Hypoglycemia 12/09/16 14:45 01/08/17 14:44 Dextrose/Sodium Chloride 1,000 ml @ 75 mls/hr [id number] IV 12/10/16 15:00 01/09/17 14:59 12/13/16 09:28 Diltiazem HCl (Cardizem) 10 mg Q1H PRN IV HR > SUSTAINED 120 12/10/16 08:15 01/09/17 08:14 12/10/16 10:48 Lorazepam (Ativan 2mg/ml 1ml) 0.5 mg Q4H PRN IV For Anxiety 12/09/16 14:45 12/16/16 14:44 12/10/16 12:14 Metoprolol Tartrate (Lopressor) 5 mg QIDPRN PRN IVP heart rate greater than 115 12/10/16 19:00 01/09/17 18:59 Metoprolol Tartrate (Lopressor) 75 mg Q12HR ORAL 12/11/16 09:00 01/10/17 08:59 12/13/16 09:02 Morphine Sulfate (Morphine Sulfate) 1 mg Q4H PRN IVP For Pain 7-10 12/09/16 14:45 12/16/16 14:44 12/11/16 20:34 Nitroglycerin (Ntg) 0.4 mg Q5M X 3 DOSES PRN SL Prn Chest Pain 12/09/16 14:45 01/08/17 14:44 Ondansetron HCl (Zofran) 4 mg Q6H PRN IVP Nausea & Vomiting 12/09/16 14:45 01/08/17 14:44 Pantoprazole (Protonix) 40 mg BID ORAL 12/10/16 18:00 01/09/17 17:59 12/13/16 09:02 Polyethylene Glycol (Miralax) 17 gm HSPRN PRN ORAL Constipation 12/09/16 14:45 01/08/17 14:44 Quetiapine Fumarate (SEROquel) 100 mg DAILY ORAL 12/11/16 09:00 01/10/17 08:59 12/13/16 09:02 Temazepam (Restoril) 15 mg HSPRN PRN ORAL Insomnia 12/09/16 14:45 12/16/16 14:44 Valproic Acid (Depakene) 250 mg TID ORAL 12/10/16 18:00 01/09/17 17:59 12/13/16 09:02 MARÍA JI Dec 13, 2016 12:04
[2016-12-13] MEDS: cefTRIAXone 1 GM in D5W 55 ML IVPB SCH (15:45)
[2016-12-13 15:46] VITALS: BP 125/51
--- NOTE | 2016-12-13 18:28 | Internal Med Progress Note ---
Subjective Date of Service: Dec 13, 2016 Physician Name Mayank Patel Attending Physician Sim Engel MD Current Medications Medications (Trade) Dose Ordered Sig/Trudy Route PRN Reason Start Time Stop Time Status Last Admin Dose Admin Acetaminophen (Tylenol) 650 mg Q4H PRN ORAL fever 12/09/16 14:45 01/08/17 14:44 12/13/16 05:55 Al Hydroxide/Mg Hydroxide (Mylanta II) 30 ml Q6H PRN ORAL dyspepsia 12/09/16 14:45 01/08/17 14:44 Albuterol/ Ipratropium (DuoNeb 0.5-3(2.5)mg/3ml) 3 ml Q4H PRN HHN Shortness of Breath 12/12/16 10:45 12/17/16 23:59 Amlodipine Besylate (Norvasc) 2.5 mg DAILY ORAL 12/13/16 09:00 01/12/17 08:59 12/13/16 09:02 Apixaban (Eliquis) 5 mg BID ORAL 12/11/16 09:00 01/10/17 08:59 12/13/16 09:03 Ceftriaxone Sodium 1 gm/ Dextrose 55 ml @ 110 mls/hr Q24H IVPB 12/10/16 16:00 12/17/16 15:59 12/13/16 15:45 Clonidine HCl (Catapres) 0.1 mg Q4H PRN ORAL SBP > 160 12/09/16 14:45 01/08/17 14:44 Clopidogrel Bisulfate (Plavix) 75 mg DAILY ORAL 12/11/16 09:00 01/10/17 08:59 12/13/16 09:02 Dextrose (Dextrose 50%) STAT PRN IV Hypoglycemia 12/09/16 14:45 01/08/17 14:44 Diltiazem HCl (Cardizem) 10 mg Q1H PRN IV HR > SUSTAINED 120 12/10/16 08:15 01/09/17 08:14 12/10/16 10:48 Lorazepam (Ativan 2mg/ml 1ml) 0.5 mg Q4H PRN IV For Anxiety 12/09/16 14:45 12/16/16 14:44 12/10/16 12:14 Metoprolol Tartrate (Lopressor) 5 mg QIDPRN PRN IVP heart rate greater than 115 12/10/16 19:00 01/09/17 18:59 Metoprolol Tartrate (Lopressor) 75 mg Q12HR ORAL 12/11/16 09:00 01/10/17 08:59 12/13/16 09:02 Morphine Sulfate (Morphine Sulfate) 1 mg Q4H PRN IVP For Pain 7-10 12/09/16 14:45 12/16/16 14:44 12/11/16 20:34 Nitroglycerin (Ntg) 0.4 mg Q5M X 3 DOSES PRN SL Prn Chest Pain 12/09/16 14:45 01/08/17 14:44 Ondansetron HCl (Zofran) 4 mg Q6H PRN IVP Nausea & Vomiting 12/09/16 14:45 01/08/17 14:44 Pantoprazole (Protonix) 40 mg BID ORAL 12/10/16 18:00 01/09/17 17:59 12/13/16 09:02 Polyethylene Glycol (Miralax) 17 gm HSPRN PRN ORAL Constipation 12/09/16 14:45 01/08/17 14:44 Quetiapine Fumarate (SEROquel) 100 mg DAILY ORAL 12/11/16 09:00 01/10/17 08:59 12/13/16 09:02 Temazepam (Restoril) 15 mg HSPRN PRN ORAL Insomnia 12/09/16 14:45 12/16/16 14:44 Valproic Acid (Depakene) 250 mg TID ORAL 12/10/16 18:00 01/09/17 17:59 12/13/16 13:53 Allergies: Coded Allergies: No Known Allergies (Unverified , 10/22/13) ROS Limited/Unobtainable: Yes Subjective 81 YO F admitted with altered mental status. Cover for Int Surya-Dr Engel. Objective Last Vital Signs Date Time Temp Pulse Resp B/P (MAP) Pulse Ox O2 Delivery O2 Flow Rate FiO2 12/13/16 15:46 97.3 75 18 125/51 98 Room Air 12/13/16 08:35 21 Laboratory Tests Test 12/13/16 07:10 White Blood Count 8.0 K/UL (4.8-10.8) Red Blood Count 3.86 M/UL (4.20-5.40) L Hemoglobin 11.9 G/DL (12.0-16.0) L Hematocrit 36.5 % (37.0-47.0) L Mean Corpuscular Volume 95 FL (80-99) Mean Corpuscular Hemoglobin 31.0 PG (27.0-31.0) Mean Corpuscular Hemoglobin Concent 32.7 G/DL (32.0-36.0) Red Cell Distribution Width 12.2 % (11.6-14.8) Platelet Count 198 K/UL (150-450) Mean Platelet Volume 7.4 FL (6.5-10.1) Neutrophils (%) (Auto) 63.2 % (45.0-75.0) Lymphocytes (%) (Auto) 20.1 % (20.0-45.0) Monocytes (%) (Auto) 14.6 % (1.0-10.0) H Eosinophils (%) (Auto) 1.3 % (0.0-3.0) Basophils (%) (Auto) 0.9 % (0.0-2.0) Sodium Level 139 mEQ/L (135-145) Potassium Level 3.4 mEQ/L (3.4-4.9) Chloride Level 102 mEQ/L (98-107) Carbon Dioxide Level 26 mEQ/L (20-30) Anion Gap 11 (5-15) Blood Urea Nitrogen 13 mg/dL (7-23) Creatinine 1.1 mg/dL (0.5-0.9) H Estimat Glomerular Filtration Rate mL/min (>60) Glucose Level 107 mg/dL (74-106) H Calcium Level 8.2 mg/dL (8.6-10.2) L Total Creatine Kinase 3440 U/L (26-140) H Intake and Output 12/13/16 12/14/16 19:00 07:00 Intake Total 830 ml Output Total 1 ml Balance 829 ml Intake Oral 720 ml IV Total 110 ml Output Urine Total 1 ml # Voids 2 Objective General: alert, cooperative, no distress, appears stated age Head: normocephalic, without obvious abnormality, atraumatic Eyes: conjunctivae/corneas clear. PERRL, EOM's intact Throat: lips, mucosa, and tongue normal. MMM Neck: supple, symmetrical, trachea midline, and no JVD Lungs: clear to auscultation bilaterally Heart: regular rate and rhythm, S1, S2 normal, no murmur, click, rub or gallop Abdomen: soft, non-tender, non-distended, bowel sounds normal; no masses or organomegaly Extremities: extremities normal, atraumatic, no cyanosis or edema Pulses: 2+ and symmetric Skin: skin color, texture, turgor normal; no rashes or lesions Neurologic: grossly normal, no focal deficits Assessment/Plan Problem List: (1) Left knee pain Assessment & Plan: Effusion by CT (2) Pacemaker (3) Altered mental status (4) Toxic encephalopathy (5) UTI (urinary tract infection) Assessment & Plan: Diptheroids and Strep viridans.?contamination? Cont ceftriaxone. (6) Atrial fibrillation Assessment & Plan: Continue eliquis. See cardiology note. (7) Hypertension Assessment & Plan: continue lopressor. (8) Rhabdomyolysis Assessment & Plan: Continue IV fluids. follow renal function test Status: progressing Assessment/Plan Discharge planning MAYANK PATEL Dec 13, 2016 18:27
--- NOTE | 2016-12-13 19:42 | Cardiology Progress Note ---
Assessment/Plan Assessment/Plan perm afib ventricular pacing fall with injury htn hld cad s/p oca pci rhabdo po bb controlled heart rate on anticoagulation stable renal function ck down trend Subjective Cardiovascular: Denies: chest pain, irregular heart rate, lightheadedness, palpitations Respiratory: Denies: shortness of breath Gastrointestinal/Abdominal: Denies: abdominal pain Genitourinary: Denies: burning Objective Last 24 Hour Vital Signs Date Time Temp Pulse Resp B/P (MAP) Pulse Ox O2 Delivery O2 Flow Rate FiO2 12/13/16 15:46 97.3 75 18 125/51 98 Room Air 12/13/16 15:35 79 12/13/16 12:15 72 12/13/16 11:28 98.1 77 18 123/58 100 Room Air 12/13/16 09:02 76 135/66 12/13/16 09:02 76 135/66 12/13/16 08:35 76 18 Room Air 21 12/13/16 08:12 98.2 89 18 135/66 100 Room Air 12/13/16 07:56 82 12/13/16 04:17 97.6 80 20 115/60 95 Room Air 12/13/16 04:00 74 12/13/16 00:00 76 12/13/16 00:00 97.3 82 20 118/58 95 Room Air 12/12/16 21:12 88 133/69 12/12/16 20:49 97.3 88 20 113/57 95 Room Air 12/12/16 20:00 81 General Appearance: no apparent distress, alert Neck: supple Cardiovascular: irregularly irregular Respiratory/Chest: lungs clear Abdomen: normal bowel sounds, non tender, soft Extremities: no swelling Intake and Output 12/13/16 12/14/16 19:00 07:00 Intake Total 830 ml Output Total 1 ml Balance 829 ml Intake Oral 720 ml IV Total 110 ml Output Urine Total 1 ml # Voids 2 Laboratory Tests Test 12/13/16 07:10 White Blood Count 8.0 K/UL (4.8-10.8) Red Blood Count 3.86 M/UL (4.20-5.40) L Hemoglobin 11.9 G/DL (12.0-16.0) L Hematocrit 36.5 % (37.0-47.0) L Mean Corpuscular Volume 95 FL (80-99) Mean Corpuscular Hemoglobin 31.0 PG (27.0-31.0) Mean Corpuscular Hemoglobin Concent 32.7 G/DL (32.0-36.0) Red Cell Distribution Width 12.2 % (11.6-14.8) Platelet Count 198 K/UL (150-450) Mean Platelet Volume 7.4 FL (6.5-10.1) Neutrophils (%) (Auto) 63.2 % (45.0-75.0) Lymphocytes (%) (Auto) 20.1 % (20.0-45.0) Monocytes (%) (Auto) 14.6 % (1.0-10.0) H Eosinophils (%) (Auto) 1.3 % (0.0-3.0) Basophils (%) (Auto) 0.9 % (0.0-2.0) Sodium Level 139 mEQ/L (135-145) Potassium Level 3.4 mEQ/L (3.4-4.9) Chloride Level 102 mEQ/L (98-107) Carbon Dioxide Level 26 mEQ/L (20-30) Anion Gap 11 (5-15) Blood Urea Nitrogen 13 mg/dL (7-23) Creatinine 1.1 mg/dL (0.5-0.9) H Estimat Glomerular Filtration Rate mL/min (>60) Glucose Level 107 mg/dL (74-106) H Calcium Level 8.2 mg/dL (8.6-10.2) L Total Creatine Kinase 3440 U/L (26-140) H MARIE MARQUES Dec 13, 2016 19:42
[2016-12-13 20:08] VITALS: BP 124/55
[2016-12-14] VITALS (7 sets, daily range): BP systolic 125–150; BP diastolic 53–71
[2016-12-14 07:43] LABS: LYMPHOCYTES % (AUTO) 22.4 % (20.0-45.0); MEAN CORPUSCULAR HEMOGLOBIN 31.1 PG (27.0-31.0); MEAN CORPUSCULAR HGB CONC 33.1 G/DL (32.0-36.0); MEAN CORPUSCULAR VOLUME 94 FL (80-99); MEAN PLATELET VOLUME 6.9 FL (6.5-10.1); MONOCYTES % (AUTO) 14.7 % (1.0-10.0); NEUTROPHILS % (AUTO) 59.9 % (45.0-75.0); PLATELET COUNT 239 K/UL (150-450); RED BLOOD COUNT 3.98 M/UL (4.20-5.40); RED CELL DISTRIBUTION WIDTH 12.5 % (11.6-14.8); WHITE BLOOD COUNT 5.8 K/UL (4.8-10.8)
[2016-12-14 08:04] LABS: ANION GAP 11 (5-15); CALCIUM 8.6 mg/dL (8.6-10.2); CARBON DIOXIDE 27 mEQ/L (20-30); CHLORIDE 106 mEQ/L (98-107); HEMOLYSIS 1; POTASSIUM 3.5 mEQ/L (3.4-4.9); SODIUM 144 mEQ/L (135-145)
[2016-12-14] MEDS: Metoprolol 25mg tab ORAL SCH (08:34)
[2016-12-14] MEDS: Eliquis 2.5mg tablet ORAL SCH ×2 (08:35→18:04)
--- NOTE | 2016-12-14 09:36 | Diagnostic Imaging Report ---
APPROVED REPORT CPT Code: 21687 Vascular Symptoms Unsteady Gait Syncope Comments: Hx fall. Hx A-fib, CHF, HTN, pacemaker, coronary stent 2011. Doppler Spectral Velocity Analysis RightLeft dICA90/16 cm/sdICA95/15 cm/s mICA86/17 cm/bnMSG910/18 cm/s lGAB760/18 cm/spICA88/17 cm/s LBX485/16 cm/rHFF964/10 cm/s dCCA47/9 cm/hmFJI254/8 cm/s mCCA47/8 cm/joNAS068/9 cm/s pCCA44/8 cm/spCCA99/10 cm/s Vert.83/15 cm/sVert.49/8 cm/s Right ICA/CCA ratio3.4Left ICA/CCA ratio0.7 extracranial carotid arteries. The Doppler spectral flow analysis indicates the degree of stenosis is minimal (30%-40%) in the common carotid artery, moderate (50%-65%) in the proximal internal carotid artery, and moderate (50%-60%) in the external carotid artery. VERTEBRAL - The vertebral artery is patent, without evidence of stenosis or steal. carotid arteries. The Doppler spectral flow analysis indicates the degree of stenosis is minimal (10%) in the common carotid artery, minimal (30%) in the internal carotid artery, and minimal (30%) in the external carotid artery. VERTEBRAL- The vertebral artery is patent, without evidence of stenosis or steal. JOELLEN Nur was notified of abnormal results at 22:00 hours.
[2016-12-14] MEDS: LORazepam Inj 2mg/ml 1ml IV PRN (13:41)
--- NOTE | 2016-12-14 14:56 | Pulmonology Progress Note ---
Assessment/Plan Problems: (1) Acute encephalopathy (2) Rapid atrial fibrillation (3) Psychosis (4) Atrial fibrillation (5) dementia vascular (6) Cardiomyopathy Assessment/Plan episodes of confusion heart rate controlled on Apixiban eating well dc IV fluids PT/OT pending discharge. Subjective ROS Limited/Unobtainable: No Constitutional: Reports: no symptoms HEENT: Repors: no symptoms Respiratory: Reports: no symptoms Cardiovascular: Reports: no symptoms Gastrointestinal/Abdominal: Reports: no symptoms Genitourinary: Reports: no symptoms Allergies: Coded Allergies: No Known Allergies (Unverified , 10/22/13) Objective Last 24 Hour Vital Signs Date Time Temp Pulse Resp B/P (MAP) Pulse Ox O2 Delivery O2 Flow Rate FiO2 12/14/16 12:29 97.0 80 18 130/58 100 Room Air 12/14/16 12:00 88 12/14/16 09:05 89 16 Room Air 12/14/16 08:34 68 137/53 12/14/16 08:34 68 137/53 12/14/16 08:05 84 12/14/16 08:00 77 12/14/16 08:00 97.0 81 18 143/61 98 Room Air 12/14/16 08:00 81 12/14/16 04:11 97.7 68 20 137/53 99 Room Air 12/14/16 03:56 76 12/14/16 00:14 78 12/14/16 00:14 98.0 79 20 150/71 99 Room Air 12/13/16 21:22 76 124/55 12/13/16 20:08 98.2 84 20 124/55 Room Air 12/13/16 20:00 82 12/13/16 19:30 82 18 Room Air 21 12/13/16 15:46 97.3 75 18 125/51 98 Room Air 12/13/16 15:35 79 Intake and Output 12/14/16 12/15/16 19:00 07:00 Intake Total 120 ml Output Total 150 ml Balance -30 ml Intake Oral 120 ml Output Urine Total 150 ml # Bowel Movements 1 General Appearance: WD/WN HEENT: atraumatic, anicteric Respiratory/Chest: chest wall non-tender, lungs clear Breasts: no masses Cardiovascular: normal rate Abdomen: normal bowel sounds, no organomegaly Extremities: no cyanosis, no clubbing Skin: no rash Laboratory Tests 12/14/16 07:05: White Blood Count 5.8, Red Blood Count 3.98L, Hemoglobin 12.4, Hematocrit 37.4, Mean Corpuscular Volume 94, Mean Corpuscular Hemoglobin 31.1H, Mean Corpuscular Hemoglobin Concent 33.1, Red Cell Distribution Width 12.5, Platelet Count 239, Mean Platelet Volume 6.9, Neutrophils (%) (Auto) 59.9, Lymphocytes (%) (Auto) 22.4, Monocytes (%) (Auto) 14.7H, Eosinophils (%) (Auto) 2.0, Basophils (%) ( Auto) 1.0, Sodium Level 144, Potassium Level 3.5, Chloride Level 106, Carbon Dioxide Level 27, Anion Gap 11, Blood Urea Nitrogen 17, Creatinine 1.0H, Estimat Glomerular Filtration Rate , Glucose Level 96, Calcium Level 8.6, Total Creatine Kinase 2749H Current Medications Medications (Trade) Dose Ordered Sig/Trudy Route PRN Reason Start Time Stop Time Status Last Admin Dose Admin Acetaminophen (Tylenol) 650 mg Q4H PRN ORAL fever 12/09/16 14:45 01/08/17 14:44 12/13/16 21:23 Al Hydroxide/Mg Hydroxide (Mylanta II) 30 ml Q6H PRN ORAL dyspepsia 12/09/16 14:45 01/08/17 14:44 Albuterol/ Ipratropium (DuoNeb 0.5-3(2.5)mg/3ml) 3 ml Q4H PRN HHN Shortness of Breath 12/12/16 10:45 12/17/16 23:59 Amlodipine Besylate (Norvasc) 2.5 mg DAILY ORAL 12/13/16 09:00 01/12/17 08:59 12/14/16 08:34 Apixaban (Eliquis) 5 mg BID ORAL 12/11/16 09:00 01/10/17 08:59 12/14/16 08:35 Ceftriaxone Sodium 1 gm/ Dextrose 55 ml @ 110 mls/hr Q24H IVPB 12/10/16 16:00 12/17/16 15:59 12/13/16 15:45 Clonidine HCl (Catapres) 0.1 mg Q4H PRN ORAL SBP > 160 12/09/16 14:45 01/08/17 14:44 Clopidogrel Bisulfate (Plavix) 75 mg DAILY ORAL 12/11/16 09:00 01/10/17 08:59 12/14/16 08:35 Dextrose (Dextrose 50%) STAT PRN IV Hypoglycemia 12/09/16 14:45 01/08/17 14:44 Diltiazem HCl (Cardizem) 10 mg Q1H PRN IV HR > SUSTAINED 120 12/10/16 08:15 01/09/17 08:14 12/10/16 10:48 Lorazepam (Ativan 2mg/ml 1ml) 0.5 mg Q4H PRN IV For Anxiety 12/09/16 14:45 12/16/16 14:44 12/14/16 13:41 Metoprolol Tartrate (Lopressor) 5 mg QIDPRN PRN IVP heart rate greater than 115 12/10/16 19:00 01/09/17 18:59 Metoprolol Tartrate (Lopressor) 75 mg Q12HR ORAL 12/11/16 09:00 01/10/17 08:59 12/14/16 08:34 Morphine Sulfate (Morphine Sulfate) 1 mg Q4H PRN IVP For Pain 7-10 12/09/16 14:45 12/16/16 14:44 12/11/16 20:34 Nitroglycerin (Ntg) 0.4 mg Q5M X 3 DOSES PRN SL Prn Chest Pain 12/09/16 14:45 01/08/17 14:44 Ondansetron HCl (Zofran) 4 mg Q6H PRN IVP Nausea & Vomiting 12/09/16 14:45 01/08/17 14:44 Pantoprazole (Protonix) 40 mg BID ORAL 12/10/16 18:00 01/09/17 17:59 12/14/16 08:34 Polyethylene Glycol (Miralax) 17 gm HSPRN PRN ORAL Constipation 12/09/16 14:45 01/08/17 14:44 Quetiapine Fumarate (SEROquel) 100 mg DAILY ORAL 12/15/16 09:00 01/10/17 08:59 Temazepam (Restoril) 15 mg HSPRN PRN ORAL Insomnia 12/09/16 14:45 12/16/16 14:44 Valproic Acid (Depakene) 250 mg TID ORAL 12/10/16 18:00 01/09/17 17:59 12/14/16 08:35 MARÍA JI Dec 14, 2016 14:56
--- NOTE | 2016-12-14 16:01 | Cardiology Progress Note ---
Assessment/Plan Assessment/Plan perm afib ventricular pacing fall with injury htn hld cad s/p oca pci rhabdo nsvt vs abbarentcy po bb increaes dose as tachy but is agitated on anticoagulation stable renal function ck down trend Subjective Cardiovascular: Reports: palpitations, Denies: chest pain, lightheadedness Respiratory: Denies: shortness of breath Gastrointestinal/Abdominal: Denies: abdominal pain Genitourinary: Denies: burning Objective Last 24 Hour Vital Signs Date Time Temp Pulse Resp B/P (MAP) Pulse Ox O2 Delivery O2 Flow Rate FiO2 12/14/16 12:29 97.0 80 18 130/58 100 Room Air 12/14/16 12:00 88 12/14/16 09:05 89 16 Room Air 12/14/16 08:34 68 137/53 12/14/16 08:34 68 137/53 12/14/16 08:05 84 12/14/16 08:00 77 12/14/16 08:00 97.0 81 18 143/61 98 Room Air 12/14/16 08:00 81 12/14/16 04:11 97.7 68 20 137/53 99 Room Air 12/14/16 03:56 76 12/14/16 00:14 78 12/14/16 00:14 98.0 79 20 150/71 99 Room Air 12/13/16 21:22 76 124/55 12/13/16 20:08 98.2 84 20 124/55 Room Air 12/13/16 20:00 82 12/13/16 19:30 82 18 Room Air 21 General Appearance: agitated, other - trying to get out of bed Neck: supple Cardiovascular: tachycardia, irregularly irregular Respiratory/Chest: lungs clear, normal breath sounds Abdomen: normal bowel sounds, non tender, soft Extremities: no swelling Intake and Output 12/14/16 12/15/16 19:00 07:00 Intake Total 120 ml Output Total 150 ml Balance -30 ml Intake Oral 120 ml Output Urine Total 150 ml # Bowel Movements 1 Laboratory Tests Test 12/14/16 07:05 White Blood Count 5.8 K/UL (4.8-10.8) Red Blood Count 3.98 M/UL (4.20-5.40) L Hemoglobin 12.4 G/DL (12.0-16.0) Hematocrit 37.4 % (37.0-47.0) Mean Corpuscular Volume 94 FL (80-99) Mean Corpuscular Hemoglobin 31.1 PG (27.0-31.0) H Mean Corpuscular Hemoglobin Concent 33.1 G/DL (32.0-36.0) Red Cell Distribution Width 12.5 % (11.6-14.8) Platelet Count 239 K/UL (150-450) Mean Platelet Volume 6.9 FL (6.5-10.1) Neutrophils (%) (Auto) 59.9 % (45.0-75.0) Lymphocytes (%) (Auto) 22.4 % (20.0-45.0) Monocytes (%) (Auto) 14.7 % (1.0-10.0) H Eosinophils (%) (Auto) 2.0 % (0.0-3.0) Basophils (%) (Auto) 1.0 % (0.0-2.0) Sodium Level 144 mEQ/L (135-145) Potassium Level 3.5 mEQ/L (3.4-4.9) Chloride Level 106 mEQ/L (98-107) Carbon Dioxide Level 27 mEQ/L (20-30) Anion Gap 11 (5-15) Blood Urea Nitrogen 17 mg/dL (7-23) Creatinine 1.0 mg/dL (0.5-0.9) H Estimat Glomerular Filtration Rate mL/min (>60) Glucose Level 96 mg/dL (74-106) Calcium Level 8.6 mg/dL (8.6-10.2) Total Creatine Kinase 2749 U/L (26-140) H MARIE MARQUES Dec 14, 2016 16:01
[2016-12-14] MEDS: cefTRIAXone 1 GM in D5W 55 ML IVPB SCH (16:18)
--- NOTE | 2016-12-14 17:12 | Internal Med Progress Note ---
Subjective Date of Service: Dec 14, 2016 Physician Name Mayank Patel Attending Physician Sim Engel MD Current Medications Medications (Trade) Dose Ordered Sig/Trudy Route PRN Reason Start Time Stop Time Status Last Admin Dose Admin Acetaminophen (Tylenol) 650 mg Q4H PRN ORAL fever 12/09/16 14:45 01/08/17 14:44 12/13/16 21:23 Al Hydroxide/Mg Hydroxide (Mylanta II) 30 ml Q6H PRN ORAL dyspepsia 12/09/16 14:45 01/08/17 14:44 Albuterol/ Ipratropium (DuoNeb 0.5-3(2.5)mg/3ml) 3 ml Q4H PRN HHN Shortness of Breath 12/12/16 10:45 12/17/16 23:59 Amlodipine Besylate (Norvasc) 2.5 mg DAILY ORAL 12/13/16 09:00 01/12/17 08:59 12/14/16 08:34 Apixaban (Eliquis) 5 mg BID ORAL 12/11/16 09:00 01/10/17 08:59 12/14/16 08:35 Ceftriaxone Sodium 1 gm/ Dextrose 55 ml @ 110 mls/hr Q24H IVPB 12/10/16 16:00 12/14/16 18:00 12/14/16 16:18 Clonidine HCl (Catapres) 0.1 mg Q4H PRN ORAL SBP > 160 12/09/16 14:45 01/08/17 14:44 Clopidogrel Bisulfate (Plavix) 75 mg DAILY ORAL 12/11/16 09:00 01/10/17 08:59 12/14/16 08:35 Dextrose (Dextrose 50%) STAT PRN IV Hypoglycemia 12/09/16 14:45 01/08/17 14:44 Diltiazem HCl (Cardizem) 10 mg Q1H PRN IV HR > SUSTAINED 120 12/10/16 08:15 01/09/17 08:14 12/10/16 10:48 Lorazepam (Ativan 2mg/ml 1ml) 0.5 mg Q4H PRN IV For Anxiety 12/09/16 14:45 12/16/16 14:44 12/14/16 13:41 Metoprolol Tartrate (Lopressor) 5 mg QIDPRN PRN IVP heart rate greater than 115 12/10/16 19:00 01/09/17 18:59 Metoprolol Tartrate (Lopressor) 100 mg Q12HR ORAL 12/14/16 16:30 01/13/17 16:29 12/14/16 16:11 Morphine Sulfate (Morphine Sulfate) 1 mg Q4H PRN IVP For Pain 7-10 12/09/16 14:45 12/16/16 14:44 12/11/16 20:34 Nitroglycerin (Ntg) 0.4 mg Q5M X 3 DOSES PRN SL Prn Chest Pain 12/09/16 14:45 01/08/17 14:44 Ondansetron HCl (Zofran) 4 mg Q6H PRN IVP Nausea & Vomiting 12/09/16 14:45 01/08/17 14:44 Pantoprazole (Protonix) 40 mg BID ORAL 12/10/16 18:00 01/09/17 17:59 12/14/16 08:34 Polyethylene Glycol (Miralax) 17 gm HSPRN PRN ORAL Constipation 12/09/16 14:45 01/08/17 14:44 Quetiapine Fumarate (SEROquel) 100 mg DAILY ORAL 12/15/16 09:00 01/10/17 08:59 Temazepam (Restoril) 15 mg HSPRN PRN ORAL Insomnia 12/09/16 14:45 12/16/16 14:44 Valproic Acid (Depakene) 250 mg TID ORAL 12/10/16 18:00 01/09/17 17:59 12/14/16 08:35 Allergies: Coded Allergies: No Known Allergies (Unverified , 10/22/13) ROS Limited/Unobtainable: No Constitutional: Reports: no symptoms HEENT: Reports: no symptoms Cardiovascular: Reports: no symptoms Respiratory: Reports: no symptoms Gastrointestinal/Abdominal: Reports: no symptoms Genitourinary: Reports: no symptoms Neurologic/Psychiatric: Reports: no symptoms Subjective 81 YO F admitted with altered mental status. Cover for Sung Engel. Objective Last Vital Signs Date Time Temp Pulse Resp B/P (MAP) Pulse Ox O2 Delivery O2 Flow Rate FiO2 12/14/16 16:50 97.7 85 18 125/55 100 Room Air 12/13/16 19:30 21 Laboratory Tests Test 12/14/16 07:05 White Blood Count 5.8 K/UL (4.8-10.8) Red Blood Count 3.98 M/UL (4.20-5.40) L Hemoglobin 12.4 G/DL (12.0-16.0) Hematocrit 37.4 % (37.0-47.0) Mean Corpuscular Volume 94 FL (80-99) Mean Corpuscular Hemoglobin 31.1 PG (27.0-31.0) H Mean Corpuscular Hemoglobin Concent 33.1 G/DL (32.0-36.0) Red Cell Distribution Width 12.5 % (11.6-14.8) Platelet Count 239 K/UL (150-450) Mean Platelet Volume 6.9 FL (6.5-10.1) Neutrophils (%) (Auto) 59.9 % (45.0-75.0) Lymphocytes (%) (Auto) 22.4 % (20.0-45.0) Monocytes (%) (Auto) 14.7 % (1.0-10.0) H Eosinophils (%) (Auto) 2.0 % (0.0-3.0) Basophils (%) (Auto) 1.0 % (0.0-2.0) Sodium Level 144 mEQ/L (135-145) Potassium Level 3.5 mEQ/L (3.4-4.9) Chloride Level 106 mEQ/L (98-107) Carbon Dioxide Level 27 mEQ/L (20-30) Anion Gap 11 (5-15) Blood Urea Nitrogen 17 mg/dL (7-23) Creatinine 1.0 mg/dL (0.5-0.9) H Estimat Glomerular Filtration Rate mL/min (>60) Glucose Level 96 mg/dL (74-106) Calcium Level 8.6 mg/dL (8.6-10.2) Total Creatine Kinase 2749 U/L (26-140) H Intake and Output 12/14/16 12/15/16 19:00 07:00 Intake Total 120 ml Output Total 350 ml Balance -230 ml Intake Oral 120 ml Output Urine Total 350 ml # Voids 1 # Bowel Movements 1 Objective General: alert, cooperative, no distress, appears stated age Head: normocephalic, without obvious abnormality, atraumatic Eyes: conjunctivae/corneas clear. PERRL, EOM's intact Throat: lips, mucosa, and tongue normal. MMM Neck: supple, symmetrical, trachea midline, and no JVD Lungs: clear to auscultation bilaterally Heart: regular rate and rhythm, S1, S2 normal, no murmur, click, rub or gallop Abdomen: soft, non-tender, non-distended, bowel sounds normal; no masses or organomegaly Extremities: extremities normal, atraumatic, no cyanosis or edema Pulses: 2+ and symmetric Skin: skin color, texture, turgor normal; no rashes or lesions Neurologic: grossly normal, no focal deficits Assessment/Plan Problem List: (1) Left knee pain Assessment & Plan: Effusion by CT (2) Pacemaker (3) Altered mental status (4) Toxic encephalopathy (5) UTI (urinary tract infection) Assessment & Plan: Diptheroids and Strep viridans.?contamination? Cont ceftriaxone. (6) Atrial fibrillation Assessment & Plan: Continue eliquis. See cardiology note. (7) Hypertension Assessment & Plan: continue lopressor. (8) Rhabdomyolysis Assessment & Plan: Continue IV fluids. follow renal function test Status: stable Assessment/Plan Discharge planning MAYANK PATEL Dec 14, 2016 17:12
[2016-12-15] VITALS (7 sets, daily range): BP systolic 121–149; BP diastolic 56–84
[2016-12-15 08:09] LABS: BASOPHILS % (AUTO) 1.4 % (0.0-2.0); EOSINOPHILS % (AUTO) 2.2 % (0.0-3.0); LYMPHOCYTES % (AUTO) 26.1 % (20.0-45.0); MEAN CORPUSCULAR HEMOGLOBIN 31.1 PG (27.0-31.0); MEAN CORPUSCULAR HGB CONC 33.2 G/DL (32.0-36.0); MEAN CORPUSCULAR VOLUME 94 FL (80-99); MEAN PLATELET VOLUME 6.9 FL (6.5-10.1); MONOCYTES % (AUTO) 12.4 % (1.0-10.0); PLATELET COUNT 244 K/UL (150-450); RED BLOOD COUNT 4.29 M/UL (4.20-5.40); RED CELL DISTRIBUTION WIDTH 12.5 % (11.6-14.8); WHITE BLOOD COUNT 5.1 K/UL (4.8-10.8)
[2016-12-15 08:27] LABS: ANION GAP 13 (5-15); CALCIUM 8.8 mg/dL (8.6-10.2); CARBON DIOXIDE 27 mEQ/L (20-30); CHLORIDE 102 mEQ/L (98-107); HEMOLYSIS 4; POTASSIUM 3.6 mEQ/L (3.4-4.9); SODIUM 142 mEQ/L (135-145)
[2016-12-15] MEDS: Eliquis 2.5mg tablet ORAL SCH ×2 (08:27→18:41)
--- NOTE | 2016-12-15 13:07 | Pulmonology Progress Note ---
Assessment/Plan Problems: (1) Acute encephalopathy (2) Rapid atrial fibrillation (3) Psychosis (4) Atrial fibrillation (5) dementia vascular (6) Cardiomyopathy Assessment/Plan episodes of confusion heart rate controlled on Apixiban eating well dc IV fluids PT/OT pending discharge. Subjective ROS Limited/Unobtainable: No Constitutional: Reports: no symptoms HEENT: Repors: no symptoms Respiratory: Reports: no symptoms Allergies: Coded Allergies: No Known Allergies (Unverified , 10/22/13) Objective Last 24 Hour Vital Signs Date Time Temp Pulse Resp B/P (MAP) Pulse Ox O2 Delivery O2 Flow Rate FiO2 12/15/16 12:00 97.0 71 18 138/56 97 Room Air 12/15/16 11:58 144/84 12/15/16 08:27 74 135/68 12/15/16 08:26 74 135/68 12/15/16 08:00 97.2 78 18 135/68 96 Room Air 12/15/16 08:00 76 12/15/16 07:23 76 20 Room Air 12/15/16 04:02 98.1 76 20 149/64 100 Room Air 12/15/16 03:59 73 12/15/16 00:13 97.7 70 20 127/63 100 Room Air 12/15/16 00:05 79 127/63 12/14/16 23:51 78 12/14/16 23:08 98.1 70 20 144/60 96 Room Air 12/14/16 20:30 96 94 12/14/16 20:02 97.3 87 20 133/68 100 Room Air 12/14/16 19:31 74 12/14/16 19:30 88 20 Room Air 12/14/16 16:50 97.7 85 18 125/55 100 Room Air 12/14/16 16:11 80 130/58 12/14/16 16:00 69 Intake and Output 12/15/16 12/16/16 19:00 07:00 Intake Total 250 ml Balance 250 ml Intake Oral 250 ml # Voids 1 # Bowel Movements 1 General Appearance: WD/WN HEENT: normocephalic, atraumatic Respiratory/Chest: chest wall non-tender, lungs clear Cardiovascular: normal peripheral pulses, normal rate Abdomen: normal bowel sounds, soft, non tender Skin: no rash Neurologic/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, no motor/sensory deficits Lymphatic: no neck adenopathy, no groin adenopathy Laboratory Tests 12/15/16 07:30: White Blood Count 5.1, Red Blood Count 4.29, Hemoglobin 13.3, Hematocrit 40.1, Mean Corpuscular Volume 94, Mean Corpuscular Hemoglobin 31.1H, Mean Corpuscular Hemoglobin Concent 33.2, Red Cell Distribution Width 12.5, Platelet Count 244, Mean Platelet Volume 6.9, Neutrophils (%) (Auto) 58.0, Lymphocytes (%) (Auto) 26.1, Monocytes (%) (Auto) 12.4H, Eosinophils (%) (Auto) 2.2, Basophils (%) ( Auto) 1.4, Sodium Level 142, Potassium Level 3.6, Chloride Level 102, Carbon Dioxide Level 27, Anion Gap 13, Blood Urea Nitrogen 15, Creatinine 1.0H, Estimat Glomerular Filtration Rate , Glucose Level 93, Calcium Level 8.8, Total Creatine Kinase 1955H Current Medications Medications (Trade) Dose Ordered Sig/Trudy Route PRN Reason Start Time Stop Time Status Last Admin Dose Admin Acetaminophen (Tylenol) 650 mg Q4H PRN ORAL fever 12/09/16 14:45 01/08/17 14:44 12/13/16 21:23 Al Hydroxide/Mg Hydroxide (Mylanta II) 30 ml Q6H PRN ORAL dyspepsia 12/09/16 14:45 01/08/17 14:44 Albuterol/ Ipratropium (DuoNeb 0.5-3(2.5)mg/3ml) 3 ml Q4H PRN HHN Shortness of Breath 12/12/16 10:45 12/17/16 23:59 Amlodipine Besylate (Norvasc) 2.5 mg DAILY ORAL 12/13/16 09:00 01/12/17 08:59 12/15/16 08:27 Apixaban (Eliquis) 5 mg BID ORAL 12/11/16 09:00 01/10/17 08:59 12/15/16 08:27 Clonidine HCl (Catapres) 0.1 mg Q4H PRN ORAL SBP > 160 12/09/16 14:45 01/08/17 14:44 Clopidogrel Bisulfate (Plavix) 75 mg DAILY ORAL 12/11/16 09:00 01/10/17 08:59 12/15/16 08:25 Dextrose (Dextrose 50%) STAT PRN IV Hypoglycemia 12/09/16 14:45 01/08/17 14:44 Diltiazem HCl (Cardizem) 10 mg Q1H PRN IV HR > SUSTAINED 120 12/10/16 08:15 01/09/17 08:14 12/10/16 10:48 Lorazepam (Ativan 2mg/ml 1ml) 0.5 mg Q4H PRN IV For Anxiety 12/09/16 14:45 12/16/16 14:44 12/14/16 13:41 Metoprolol Tartrate (Lopressor) 5 mg QIDPRN PRN IVP heart rate greater than 115 12/10/16 19:00 01/09/17 18:59 Metoprolol Tartrate (Lopressor) 100 mg Q12HR ORAL 12/14/16 16:30 01/13/17 16:29 12/15/16 08:26 Morphine Sulfate (Morphine Sulfate) 1 mg Q4H PRN IVP For Pain 7-10 12/09/16 14:45 12/16/16 14:44 12/11/16 20:34 Nitroglycerin (Ntg) 0.4 mg Q5M X 3 DOSES PRN SL Prn Chest Pain 12/09/16 14:45 01/08/17 14:44 Ondansetron HCl (Zofran) 4 mg Q6H PRN IVP Nausea & Vomiting 12/09/16 14:45 01/08/17 14:44 Pantoprazole (Protonix) 40 mg BID ORAL 12/10/16 18:00 01/09/17 17:59 12/15/16 08:27 Polyethylene Glycol (Miralax) 17 gm HSPRN PRN ORAL Constipation 12/09/16 14:45 01/08/17 14:44 Quetiapine Fumarate (SEROquel) 100 mg DAILY ORAL 12/15/16 09:00 01/10/17 08:59 12/15/16 08:28 Temazepam (Restoril) 15 mg HSPRN PRN ORAL Insomnia 12/09/16 14:45 12/16/16 14:44 Valproic Acid (Depakene) 250 mg TID ORAL 12/10/16 18:00 01/09/17 17:59 12/15/16 08:28 MARÍA JI Dec 15, 2016 13:07
--- NOTE | 2016-12-15 18:34 | Internal Med Progress Note ---
Subjective Date of Service: Dec 15, 2016 Physician Name Mayank Patel Attending Physician Sim Engel MD Current Medications Medications (Trade) Dose Ordered Sig/Trudy Route PRN Reason Start Time Stop Time Status Last Admin Dose Admin Acetaminophen (Tylenol) 650 mg Q4H PRN ORAL fever 12/09/16 14:45 01/08/17 14:44 12/13/16 21:23 Al Hydroxide/Mg Hydroxide (Mylanta II) 30 ml Q6H PRN ORAL dyspepsia 12/09/16 14:45 01/08/17 14:44 Albuterol/ Ipratropium (DuoNeb 0.5-3(2.5)mg/3ml) 3 ml Q4H PRN HHN Shortness of Breath 12/12/16 10:45 12/17/16 23:59 Amlodipine Besylate (Norvasc) 2.5 mg DAILY ORAL 12/13/16 09:00 01/12/17 08:59 12/15/16 08:27 Apixaban (Eliquis) 5 mg BID ORAL 12/11/16 09:00 01/10/17 08:59 12/15/16 08:27 Clonidine HCl (Catapres) 0.1 mg Q4H PRN ORAL SBP > 160 12/09/16 14:45 01/08/17 14:44 Clopidogrel Bisulfate (Plavix) 75 mg DAILY ORAL 12/11/16 09:00 01/10/17 08:59 12/15/16 08:25 Dextrose (Dextrose 50%) STAT PRN IV Hypoglycemia 12/09/16 14:45 01/08/17 14:44 Diltiazem HCl (Cardizem) 10 mg Q1H PRN IV HR > SUSTAINED 120 12/10/16 08:15 01/09/17 08:14 12/10/16 10:48 Lorazepam (Ativan 2mg/ml 1ml) 0.5 mg Q4H PRN IV For Anxiety 12/09/16 14:45 12/16/16 14:44 12/14/16 13:41 Metoprolol Tartrate (Lopressor) 5 mg QIDPRN PRN IVP heart rate greater than 115 12/10/16 19:00 01/09/17 18:59 Metoprolol Tartrate (Lopressor) 100 mg Q12HR ORAL 12/14/16 16:30 01/13/17 16:29 12/15/16 08:26 Morphine Sulfate (Morphine Sulfate) 1 mg Q4H PRN IVP For Pain 7-10 12/09/16 14:45 12/16/16 14:44 12/11/16 20:34 Nitroglycerin (Ntg) 0.4 mg Q5M X 3 DOSES PRN SL Prn Chest Pain 12/09/16 14:45 01/08/17 14:44 Ondansetron HCl (Zofran) 4 mg Q6H PRN IVP Nausea & Vomiting 12/09/16 14:45 01/08/17 14:44 Pantoprazole (Protonix) 40 mg BID ORAL 12/10/16 18:00 01/09/17 17:59 12/15/16 08:27 Polyethylene Glycol (Miralax) 17 gm HSPRN PRN ORAL Constipation 12/09/16 14:45 01/08/17 14:44 Quetiapine Fumarate (SEROquel) 100 mg DAILY ORAL 12/15/16 09:00 01/10/17 08:59 12/15/16 08:28 Temazepam (Restoril) 15 mg HSPRN PRN ORAL Insomnia 12/09/16 14:45 12/16/16 14:44 Valproic Acid (Depakene) 250 mg TID ORAL 12/10/16 18:00 01/09/17 17:59 12/15/16 14:14 Allergies: Coded Allergies: No Known Allergies (Unverified , 10/22/13) ROS Limited/Unobtainable: No Constitutional: Reports: no symptoms HEENT: Reports: no symptoms Cardiovascular: Reports: no symptoms Respiratory: Reports: no symptoms Gastrointestinal/Abdominal: Reports: no symptoms Genitourinary: Reports: no symptoms Neurologic/Psychiatric: Reports: no symptoms Subjective 81 YO F admitted with altered mental status. Cover for Int Surya-Dr Engel. Objective Last Vital Signs Date Time Temp Pulse Resp B/P (MAP) Pulse Ox O2 Delivery O2 Flow Rate FiO2 12/15/16 16:00 98.2 73 17 121/68 96 Room Air 12/15/16 07:23 21 Laboratory Tests Test 12/15/16 07:30 White Blood Count 5.1 K/UL (4.8-10.8) Red Blood Count 4.29 M/UL (4.20-5.40) Hemoglobin 13.3 G/DL (12.0-16.0) Hematocrit 40.1 % (37.0-47.0) Mean Corpuscular Volume 94 FL (80-99) Mean Corpuscular Hemoglobin 31.1 PG (27.0-31.0) H Mean Corpuscular Hemoglobin Concent 33.2 G/DL (32.0-36.0) Red Cell Distribution Width 12.5 % (11.6-14.8) Platelet Count 244 K/UL (150-450) Mean Platelet Volume 6.9 FL (6.5-10.1) Neutrophils (%) (Auto) 58.0 % (45.0-75.0) Lymphocytes (%) (Auto) 26.1 % (20.0-45.0) Monocytes (%) (Auto) 12.4 % (1.0-10.0) H Eosinophils (%) (Auto) 2.2 % (0.0-3.0) Basophils (%) (Auto) 1.4 % (0.0-2.0) Sodium Level 142 mEQ/L (135-145) Potassium Level 3.6 mEQ/L (3.4-4.9) Chloride Level 102 mEQ/L (98-107) Carbon Dioxide Level 27 mEQ/L (20-30) Anion Gap 13 (5-15) Blood Urea Nitrogen 15 mg/dL (7-23) Creatinine 1.0 mg/dL (0.5-0.9) H Estimat Glomerular Filtration Rate mL/min (>60) Glucose Level 93 mg/dL (74-106) Calcium Level 8.8 mg/dL (8.6-10.2) Total Creatine Kinase 1955 U/L (26-140) H Intake and Output 12/15/16 12/16/16 19:00 07:00 Intake Total 900 ml Balance 900 ml Intake Oral 900 ml # Voids 1 # Bowel Movements 1 Objective General: alert, cooperative, no distress, appears stated age Head: normocephalic, without obvious abnormality, atraumatic Eyes: conjunctivae/corneas clear. PERRL, EOM's intact Throat: lips, mucosa, and tongue normal. MMM Neck: supple, symmetrical, trachea midline, and no JVD Lungs: clear to auscultation bilaterally Heart: regular rate and rhythm, S1, S2 normal, no murmur, click, rub or gallop Abdomen: soft, non-tender, non-distended, bowel sounds normal; no masses or organomegaly Extremities: extremities normal, atraumatic, no cyanosis or edema Pulses: 2+ and symmetric Skin: skin color, texture, turgor normal; no rashes or lesions Neurologic: grossly normal, no focal deficits Assessment/Plan Problem List: (1) Left knee pain Assessment & Plan: Effusion by CT (2) Pacemaker (3) Altered mental status (4) Toxic encephalopathy (5) UTI (urinary tract infection) Assessment & Plan: Diptheroids and Strep viridans.?contamination? D/C ceftriaxone D# 10/08. (6) Atrial fibrillation Assessment & Plan: Continue eliquis. See cardiology note. (7) Hypertension Assessment & Plan: continue lopressor. (8) Rhabdomyolysis Assessment & Plan: Continue IV fluids. follow renal function test Status: progressing Assessment/Plan Discharge planning MAYANK PATEL Dec 15, 2016 18:34
--- NOTE | 2016-12-15 19:22 | Cardiology Progress Note ---
Assessment/Plan Assessment/Plan perm afib ventricular pacing fall with injury htn hld cad s/p oca pci rhabdo nsvt vs aberrancy hr better on higher martin f bb on anticoagulation stable renal function ck down trend ok to dc form my view point Subjective Cardiovascular: Denies: chest pain Respiratory: Denies: SOB with excertion Gastrointestinal/Abdominal: Denies: abdominal pain Genitourinary: Denies: burning Objective Last 24 Hour Vital Signs Date Time Temp Pulse Resp B/P (MAP) Pulse Ox O2 Delivery O2 Flow Rate FiO2 12/15/16 16:00 98.2 73 17 121/68 96 Room Air 12/15/16 12:00 84 12/15/16 12:00 97.0 71 18 138/56 97 Room Air 12/15/16 12:00 82 99 94 12/15/16 11:58 144/84 12/15/16 08:27 74 135/68 12/15/16 08:26 74 135/68 12/15/16 08:00 97.2 78 18 135/68 96 Room Air 12/15/16 08:00 76 12/15/16 07:23 76 20 Room Air 21 12/15/16 04:02 98.1 76 20 149/64 100 Room Air 12/15/16 03:59 73 12/15/16 00:13 97.7 70 20 127/63 100 Room Air 12/15/16 00:05 79 127/63 12/14/16 23:51 78 12/14/16 23:08 98.1 70 20 144/60 96 Room Air 12/14/16 20:30 96 94 12/14/16 20:02 97.3 87 20 133/68 100 Room Air 12/14/16 19:31 74 12/14/16 19:30 88 20 Room Air 21 General Appearance: no apparent distress, alert Neck: no JVD Cardiovascular: irregularly irregular Respiratory/Chest: lungs clear, normal breath sounds Abdomen: normal bowel sounds, non tender, soft Extremities: no swelling Intake and Output 12/15/16 12/16/16 19:00 07:00 Intake Total 900 ml Balance 900 ml Intake Oral 900 ml # Voids 1 # Bowel Movements 1 Laboratory Tests Test 12/15/16 07:30 White Blood Count 5.1 K/UL (4.8-10.8) Red Blood Count 4.29 M/UL (4.20-5.40) Hemoglobin 13.3 G/DL (12.0-16.0) Hematocrit 40.1 % (37.0-47.0) Mean Corpuscular Volume 94 FL (80-99) Mean Corpuscular Hemoglobin 31.1 PG (27.0-31.0) H Mean Corpuscular Hemoglobin Concent 33.2 G/DL (32.0-36.0) Red Cell Distribution Width 12.5 % (11.6-14.8) Platelet Count 244 K/UL (150-450) Mean Platelet Volume 6.9 FL (6.5-10.1) Neutrophils (%) (Auto) 58.0 % (45.0-75.0) Lymphocytes (%) (Auto) 26.1 % (20.0-45.0) Monocytes (%) (Auto) 12.4 % (1.0-10.0) H Eosinophils (%) (Auto) 2.2 % (0.0-3.0) Basophils (%) (Auto) 1.4 % (0.0-2.0) Sodium Level 142 mEQ/L (135-145) Potassium Level 3.6 mEQ/L (3.4-4.9) Chloride Level 102 mEQ/L (98-107) Carbon Dioxide Level 27 mEQ/L (20-30) Anion Gap 13 (5-15) Blood Urea Nitrogen 15 mg/dL (7-23) Creatinine 1.0 mg/dL (0.5-0.9) H Estimat Glomerular Filtration Rate mL/min (>60) Glucose Level 93 mg/dL (74-106) Calcium Level 8.8 mg/dL (8.6-10.2) Total Creatine Kinase 1955 U/L (26-140) H MARIE MARQUES Dec 15, 2016 19:22
[2016-12-16] VITALS: BP 151/59
[2016-12-16 04:00] VITALS: BP 149/64
[2016-12-16 08:00] VITALS: BP 100/50
[2016-12-16] MEDS: Eliquis 2.5mg tablet ORAL SCH ×2 (08:07→17:43)
[2016-12-16 08:53] LABS: BASOPHILS % (AUTO) 1.1 % (0.0-2.0); EOSINOPHILS % (AUTO) 1.9 % (0.0-3.0); LYMPHOCYTES % (AUTO) 27.9 % (20.0-45.0); MEAN CORPUSCULAR HEMOGLOBIN 31.6 PG (27.0-31.0); MEAN CORPUSCULAR HGB CONC 32.7 G/DL (32.0-36.0); MEAN CORPUSCULAR VOLUME 96 FL (80-99); MEAN PLATELET VOLUME 6.6 FL (6.5-10.1); MONOCYTES % (AUTO) 12.8 % (1.0-10.0); NEUTROPHILS % (AUTO) 56.3 % (45.0-75.0); PLATELET COUNT 250 K/UL (150-450); RED CELL DISTRIBUTION WIDTH 12.6 % (11.6-14.8); WHITE BLOOD COUNT 4.9 K/UL (4.8-10.8)
[2016-12-16 09:08] LABS: ANION GAP 13 (5-15); CALCIUM 8.9 mg/dL (8.6-10.2); CARBON DIOXIDE 28 mEQ/L (20-30); CHLORIDE 102 mEQ/L (98-107); CREATININE 0.9 mg/dL (0.5-0.9); HEMOLYSIS 1; POTASSIUM 3.6 mEQ/L (3.4-4.9); SODIUM 143 mEQ/L (135-145)
--- NOTE | 2016-12-16 11:08 | Wound Nurse Progress Note ---
Wound RN Progress Note Wound Consult #1 Left cheek open wound with partial skin loss. Noted a dry scab. #2 Perineal area full thickness open wound etiology unknown. Resolved #3 Left lateral 5th metatarsal head dry scab. still intact with dry scab #4 Left elbow with scattered dry scabs. Resolved Reassessed this Pt. Good progress noted at this time. Will cont with recommendation for preventative measures. MYNOR MCGRAW RN Dec 16, 2016 11:08
[2016-12-16 12:00] VITALS: BP 122/50
--- NOTE | 2016-12-16 12:17 | Pulmonology Progress Note ---
Assessment/Plan Problems: (1) Acute encephalopathy (2) Rapid atrial fibrillation (3) Psychosis (4) Atrial fibrillation (5) dementia vascular (6) Cardiomyopathy Assessment/Plan episodes of confusion heart rate controlled on Apixiban eating well dc IV fluids PT/OT pending discharge. Subjective ROS Limited/Unobtainable: No Constitutional: Reports: no symptoms Respiratory: Reports: no symptoms Allergies: Coded Allergies: No Known Allergies (Unverified , 10/22/13) Objective Last 24 Hour Vital Signs Date Time Temp Pulse Resp B/P (MAP) Pulse Ox O2 Delivery O2 Flow Rate FiO2 12/16/16 09:07 97.7 12/16/16 08:09 72 149/64 12/16/16 08:08 72 149/64 12/16/16 08:00 87 12/16/16 08:00 97.0 76 18 100/50 100 Room Air 12/16/16 07:51 72 18 Room Air 12/16/16 04:00 97.7 71 16 149/64 100 Room Air 12/16/16 04:00 66 12/16/16 00:00 71 12/16/16 00:00 98.4 62 18 151/59 99 Room Air 12/15/16 21:22 68 136/56 12/15/16 20:00 97.5 68 16 136/56 100 Room Air 12/15/16 20:00 80 12/15/16 19:46 62 18 Room Air 12/15/16 16:00 77 12/15/16 16:00 98.2 73 17 121/68 96 Room Air General Appearance: cachetic HEENT: normocephalic, anicteric Respiratory/Chest: chest wall non-tender, normal breath sounds Breasts: no masses Cardiovascular: normal peripheral pulses Abdomen: normal bowel sounds, soft, non tender Genitourinary: normal external genitalia Extremities: no clubbing Skin: no rash Laboratory Tests 12/16/16 08:20: White Blood Count 4.9, Red Blood Count 4.20, Hemoglobin 13.3, Hematocrit 40.5, Mean Corpuscular Volume 96, Mean Corpuscular Hemoglobin 31.6H, Mean Corpuscular Hemoglobin Concent 32.7, Red Cell Distribution Width 12.6, Platelet Count 250, Mean Platelet Volume 6.6, Neutrophils (%) (Auto) 56.3, Lymphocytes (%) (Auto) 27.9, Monocytes (%) (Auto) 12.8H, Eosinophils (%) (Auto) 1.9, Basophils (%) ( Auto) 1.1, Sodium Level 143, Potassium Level 3.6, Chloride Level 102, Carbon Dioxide Level 28, Anion Gap 13, Blood Urea Nitrogen 17, Creatinine 0.9, Estimat Glomerular Filtration Rate , Glucose Level 106, Calcium Level 8.9, Total Creatine Kinase 1381H Current Medications Medications (Trade) Dose Ordered Sig/Trudy Route PRN Reason Start Time Stop Time Status Last Admin Dose Admin Acetaminophen (Tylenol) 650 mg Q4H PRN ORAL fever 12/09/16 14:45 01/08/17 14:44 12/16/16 08:08 Al Hydroxide/Mg Hydroxide (Mylanta II) 30 ml Q6H PRN ORAL dyspepsia 12/09/16 14:45 01/08/17 14:44 Albuterol/ Ipratropium (DuoNeb 0.5-3(2.5)mg/3ml) 3 ml Q4H PRN HHN Shortness of Breath 12/12/16 10:45 12/17/16 23:59 Amlodipine Besylate (Norvasc) 2.5 mg DAILY ORAL 12/13/16 09:00 01/12/17 08:59 12/16/16 08:08 Apixaban (Eliquis) 5 mg BID ORAL 12/11/16 09:00 01/10/17 08:59 12/16/16 08:07 Clonidine HCl (Catapres) 0.1 mg Q4H PRN ORAL SBP > 160 12/09/16 14:45 01/08/17 14:44 Clopidogrel Bisulfate (Plavix) 75 mg DAILY ORAL 12/11/16 09:00 01/10/17 08:59 12/16/16 08:08 Dextrose (Dextrose 50%) STAT PRN IV Hypoglycemia 12/09/16 14:45 01/08/17 14:44 Diltiazem HCl (Cardizem) 10 mg Q1H PRN IV HR > SUSTAINED 120 12/10/16 08:15 01/09/17 08:14 12/10/16 10:48 Lorazepam (Ativan 2mg/ml 1ml) 0.5 mg Q4H PRN IV For Anxiety 12/09/16 14:45 12/16/16 14:44 12/14/16 13:41 Metoprolol Tartrate (Lopressor) 5 mg QIDPRN PRN IVP heart rate greater than 115 12/10/16 19:00 01/09/17 18:59 Metoprolol Tartrate (Lopressor) 100 mg Q12HR ORAL 12/14/16 16:30 01/13/17 16:29 12/16/16 08:09 Morphine Sulfate (Morphine Sulfate) 1 mg Q4H PRN IVP For Pain 7-12/09/16 14:45 12/16/16 14:44 12/11/16 20:34 Nitroglycerin (Ntg) 0.4 mg Q5M X 3 DOSES PRN SL Prn Chest Pain 12/09/16 14:45 01/08/17 14:44 Ondansetron HCl (Zofran) 4 mg Q6H PRN IVP Nausea & Vomiting 12/09/16 14:45 01/08/17 14:44 Pantoprazole (Protonix) 40 mg BID ORAL 12/10/16 18:00 01/09/17 17:59 12/16/16 08:08 Polyethylene Glycol (Miralax) 17 gm HSPRN PRN ORAL Constipation 12/09/16 14:45 01/08/17 14:44 Quetiapine Fumarate (SEROquel) 100 mg DAILY ORAL 12/15/16 09:00 01/10/17 08:59 12/16/16 08:07 Temazepam (Restoril) 15 mg HSPRN PRN ORAL Insomnia 12/09/16 14:45 12/16/16 14:44 Valproic Acid (Depakene) 250 mg TID ORAL 12/10/16 18:00 01/09/17 17:59 12/16/16 08:08 MARÍA JI Dec 16, 2016 12:17
[2016-12-16 15:45] VITALS: BP 118/50
--- NOTE | 2016-12-16 19:46 | Internal Med Progress Note ---
Subjective Date of Service: Dec 16, 2016 Physician Name Deng Patel Attending Physician Sim Engel MD Current Medications Medications (Trade) Dose Ordered Sig/Trudy Route PRN Reason Start Time Stop Time Status Last Admin Dose Admin Acetaminophen (Tylenol) 650 mg Q4H PRN ORAL fever 12/09/16 14:45 01/08/17 14:44 12/16/16 08:08 Al Hydroxide/Mg Hydroxide (Mylanta II) 30 ml Q6H PRN ORAL dyspepsia 12/09/16 14:45 01/08/17 14:44 Albuterol/ Ipratropium (DuoNeb 0.5-3(2.5)mg/3ml) 3 ml Q4H PRN HHN Shortness of Breath 12/12/16 10:45 12/17/16 23:59 Amlodipine Besylate (Norvasc) 2.5 mg DAILY ORAL 12/13/16 09:00 01/12/17 08:59 12/16/16 08:08 Apixaban (Eliquis) 5 mg BID ORAL 12/11/16 09:00 01/10/17 08:59 12/16/16 17:43 Clonidine HCl (Catapres) 0.1 mg Q4H PRN ORAL SBP > 160 12/09/16 14:45 01/08/17 14:44 Clopidogrel Bisulfate (Plavix) 75 mg DAILY ORAL 12/11/16 09:00 01/10/17 08:59 12/16/16 08:08 Dextrose (Dextrose 50%) STAT PRN IV Hypoglycemia 12/09/16 14:45 01/08/17 14:44 Diltiazem HCl (Cardizem) 10 mg Q1H PRN IV HR > SUSTAINED 120 12/10/16 08:15 01/09/17 08:14 12/10/16 10:48 Metoprolol Tartrate (Lopressor) 5 mg QIDPRN PRN IVP heart rate greater than 115 12/10/16 19:00 01/09/17 18:59 Metoprolol Tartrate (Lopressor) 100 mg Q12HR ORAL 12/14/16 16:30 01/13/17 16:29 12/16/16 08:09 Nitroglycerin (Ntg) 0.4 mg Q5M X 3 DOSES PRN SL Prn Chest Pain 12/09/16 14:45 01/08/17 14:44 Ondansetron HCl (Zofran) 4 mg Q6H PRN IVP Nausea & Vomiting 12/09/16 14:45 01/08/17 14:44 Pantoprazole (Protonix) 40 mg BID ORAL 12/10/16 18:00 01/09/17 17:59 12/16/16 17:43 Polyethylene Glycol (Miralax) 17 gm HSPRN PRN ORAL Constipation 12/09/16 14:45 01/08/17 14:44 Quetiapine Fumarate (SEROquel) 100 mg DAILY ORAL 12/15/16 09:00 01/10/17 08:59 12/16/16 08:07 Valproic Acid (Depakene) 250 mg TID ORAL 12/10/16 18:00 01/09/17 17:59 12/16/16 17:44 Allergies: Coded Allergies: No Known Allergies (Unverified , 10/22/13) ROS Limited/Unobtainable: No Constitutional: Reports: no symptoms HEENT: Reports: no symptoms Cardiovascular: Reports: no symptoms Respiratory: Reports: no symptoms Gastrointestinal/Abdominal: Reports: no symptoms Genitourinary: Reports: no symptoms Neurologic/Psychiatric: Reports: no symptoms Subjective 81 YO F admitted with altered mental status. Cover for [facility] Engel. Objective Last Vital Signs Date Time Temp Pulse Resp B/P (MAP) Pulse Ox O2 Delivery O2 Flow Rate FiO2 12/16/16 19:26 76 18 Room Air 12/16/16 15:45 97.0 118/50 99 12/15/16 07:23 21 Laboratory Tests Test 12/16/16 08:20 White Blood Count 4.9 K/UL (4.8-10.8) Red Blood Count 4.20 M/UL (4.20-5.40) Hemoglobin 13.3 G/DL (12.0-16.0) Hematocrit 40.5 % (37.0-47.0) Mean Corpuscular Volume 96 FL (80-99) Mean Corpuscular Hemoglobin 31.6 PG (27.0-31.0) H Mean Corpuscular Hemoglobin Concent 32.7 G/DL (32.0-36.0) Red Cell Distribution Width 12.6 % (11.6-14.8) Platelet Count 250 K/UL (150-450) Mean Platelet Volume 6.6 FL (6.5-10.1) Neutrophils (%) (Auto) 56.3 % (45.0-75.0) Lymphocytes (%) (Auto) 27.9 % (20.0-45.0) Monocytes (%) (Auto) 12.8 % (1.0-10.0) H Eosinophils (%) (Auto) 1.9 % (0.0-3.0) Basophils (%) (Auto) 1.1 % (0.0-2.0) Sodium Level 143 mEQ/L (135-145) Potassium Level 3.6 mEQ/L (3.4-4.9) Chloride Level 102 mEQ/L (98-107) Carbon Dioxide Level 28 mEQ/L (20-30) Anion Gap 13 (5-15) Blood Urea Nitrogen 17 mg/dL (7-23) Creatinine 0.9 mg/dL (0.5-0.9) Estimat Glomerular Filtration Rate mL/min (>60) Glucose Level 106 mg/dL (74-106) Calcium Level 8.9 mg/dL (8.6-10.2) Total Creatine Kinase 1381 U/L (26-140) H Intake and Output 12/16/16 12/17/16 19:00 07:00 Intake Total 850 ml Balance 850 ml Intake Oral 850 ml # Voids 5 # Bowel Movements 2 Objective General: alert, cooperative, no distress, appears stated age Head: normocephalic, without obvious abnormality, atraumatic Eyes: conjunctivae/corneas clear. PERRL, EOM's intact Throat: lips, mucosa, and tongue normal. MMM Neck: supple, symmetrical, trachea midline, and no JVD Lungs: clear to auscultation bilaterally Heart: regular rate and rhythm, S1, S2 normal, no murmur, click, rub or gallop Abdomen: soft, non-tender, non-distended, bowel sounds normal; no masses or organomegaly Extremities: extremities normal, atraumatic, no cyanosis or edema Pulses: 2+ and symmetric Skin: skin color, texture, turgor normal; no rashes or lesions Neurologic: grossly normal, no focal deficits Assessment/Plan Problem List: (1) Left knee pain Assessment & Plan: Effusion by CT (2) Pacemaker (3) Altered mental status (4) Toxic encephalopathy (5) UTI (urinary tract infection) Assessment & Plan: Diptheroids and Strep viridans.?contamination? D/C ceftriaxone D# 10/08. (6) Atrial fibrillation Assessment & Plan: Continue eliquis. See cardiology note. (7) Hypertension Assessment & Plan: continue lopressor. (8) Rhabdomyolysis Assessment & Plan: Continue IV fluids. follow renal function test Assessment/Plan Discharge in am 12/17/[address] [facility] DENG PATEL Dec 16, 2016 19:46
[2016-12-16 20:00] VITALS: BP 135/67
--- NOTE | 2016-12-16 20:14 | Cardiology Progress Note ---
Assessment/Plan Assessment/Plan perm afib ventricular pacing fall with injury htn hld cad s/p oca pci rhabdo nsvt vs aberrancy hr better on higher martin f bb on anticoagulation stable renal function ck down trend ok to dc form my view point dc tele Subjective Cardiovascular: Denies: chest pain, lightheadedness Respiratory: Denies: shortness of breath Gastrointestinal/Abdominal: Denies: abdominal pain Genitourinary: Denies: burning Objective Last 24 Hour Vital Signs Date Time Temp Pulse Resp B/P (MAP) Pulse Ox O2 Delivery O2 Flow Rate FiO2 12/16/16 19:26 76 18 Room Air 12/16/16 16:00 70 12/16/16 15:45 97.0 80 18 118/50 99 Room Air 12/16/16 12:00 74 12/16/16 12:00 97.2 82 18 122/50 98 Room Air 12/16/16 09:07 97.7 12/16/16 09:00 85 90 12/16/16 08:09 72 149/64 12/16/16 08:08 72 149/64 12/16/16 08:00 87 12/16/16 08:00 97.0 76 18 100/50 100 Room Air 12/16/16 07:51 72 18 Room Air 12/16/16 04:00 97.7 71 16 149/64 100 Room Air 12/16/16 04:00 66 12/16/16 00:00 71 12/16/16 00:00 98.4 62 18 151/59 99 Room Air 12/15/16 21:22 68 136/56 General Appearance: no apparent distress, alert Neck: supple Cardiovascular: irregularly irregular Respiratory/Chest: lungs clear, normal breath sounds Abdomen: normal bowel sounds, non tender, soft Extremities: no swelling Intake and Output 12/16/16 12/17/16 19:00 07:00 Intake Total 850 ml Balance 850 ml Intake Oral 850 ml # Voids 5 # Bowel Movements 2 Laboratory Tests Test 12/16/16 08:20 White Blood Count 4.9 K/UL (4.8-10.8) Red Blood Count 4.20 M/UL (4.20-5.40) Hemoglobin 13.3 G/DL (12.0-16.0) Hematocrit 40.5 % (37.0-47.0) Mean Corpuscular Volume 96 FL (80-99) Mean Corpuscular Hemoglobin 31.6 PG (27.0-31.0) H Mean Corpuscular Hemoglobin Concent 32.7 G/DL (32.0-36.0) Red Cell Distribution Width 12.6 % (11.6-14.8) Platelet Count 250 K/UL (150-450) Mean Platelet Volume 6.6 FL (6.5-10.1) Neutrophils (%) (Auto) 56.3 % (45.0-75.0) Lymphocytes (%) (Auto) 27.9 % (20.0-45.0) Monocytes (%) (Auto) 12.8 % (1.0-10.0) H Eosinophils (%) (Auto) 1.9 % (0.0-3.0) Basophils (%) (Auto) 1.1 % (0.0-2.0) Sodium Level 143 mEQ/L (135-145) Potassium Level 3.6 mEQ/L (3.4-4.9) Chloride Level 102 mEQ/L (98-107) Carbon Dioxide Level 28 mEQ/L (20-30) Anion Gap 13 (5-15) Blood Urea Nitrogen 17 mg/dL (7-23) Creatinine 0.9 mg/dL (0.5-0.9) Estimat Glomerular Filtration Rate mL/min (>60) Glucose Level 106 mg/dL (74-106) Calcium Level 8.9 mg/dL (8.6-10.2) Total Creatine Kinase 1381 U/L (26-140) H MARIE MARQUES Dec 16, 2016 20:14
[2016-12-17 00:01] VITALS: BP 142/67
[2016-12-17 04:00] VITALS: BP 140/68
[2016-12-17 08:00] VITALS: BP 133/74
[2016-12-17 08:08] LABS: BASOPHILS % (AUTO) 0.9 % (0.0-2.0); EOSINOPHILS % (AUTO) 2.1 % (0.0-3.0); LYMPHOCYTES % (AUTO) 35.4 % (20.0-45.0); MEAN CORPUSCULAR HEMOGLOBIN 30.6 PG (27.0-31.0); MEAN CORPUSCULAR HGB CONC 32.9 G/DL (32.0-36.0); MEAN CORPUSCULAR VOLUME 93 FL (80-99); MEAN PLATELET VOLUME 6.2 FL (6.5-10.1); MONOCYTES % (AUTO) 14.3 % (1.0-10.0); NEUTROPHILS % (AUTO) 47.3 % (45.0-75.0); PLATELET COUNT 266 K/UL (150-450); RED BLOOD COUNT 4.56 M/UL (4.20-5.40); RED CELL DISTRIBUTION WIDTH 12.2 % (11.6-14.8); WHITE BLOOD COUNT 4.3 K/UL (4.8-10.8)
[2016-12-17 08:34] LABS: ANION GAP 10 (5-15); CALCIUM 8.9 mg/dL (8.6-10.2); CARBON DIOXIDE 29 mEQ/L (20-30); CHLORIDE 101 mEQ/L (98-107); CREATININE 0.9 mg/dL (0.5-0.9); HEMOLYSIS 7; POTASSIUM 3.8 mEQ/L (3.4-4.9); SODIUM 140 mEQ/L (135-145)
[2016-12-17] MEDS: Eliquis 2.5mg tablet ORAL SCH ×2 (09:31→18:30)
[2016-12-17 11:18] VITALS: BP 151/74
[2016-12-17] MEDS ORDERED: NORVASC2.5 MG ORAL (11:39)
[2016-12-17] MEDS ORDERED: SEROQUEL100 MG ORAL (11:39)
[2016-12-17] MEDS ORDERED: METOPROLOL TAR100 MG ORAL (11:39)
--- NOTE | 2016-12-17 11:41 | Pulmonology Progress Note ---
Assessment/Plan Problems: (1) Acute encephalopathy (2) Rapid atrial fibrillation (3) Psychosis (4) Atrial fibrillation (5) dementia vascular (6) Cardiomyopathy Assessment/Plan episodes of confusion heart rate controlled consider dc anticoagulants b/o increased eating well dc IV fluids PT/OT pending discharge. Subjective ROS Limited/Unobtainable: No Constitutional: Reports: no symptoms HEENT: Repors: no symptoms Respiratory: Reports: no symptoms Allergies: Coded Allergies: No Known Allergies (Unverified , 10/22/13) Objective Last 24 Hour Vital Signs Date Time Temp Pulse Resp B/P (MAP) Pulse Ox O2 Delivery O2 Flow Rate FiO2 12/17/16 11:18 59 151/74 12/17/16 09:32 68 133/74 12/17/16 09:31 68 133/74 12/17/16 08:00 97.7 68 18 133/74 100 Room Air 12/17/16 08:00 68 79 103 12/17/16 08:00 95 12/17/16 04:00 97.7 78 20 140/68 Room Air 100 12/17/16 04:00 78 12/17/16 01:07 97.7 12/17/16 00:01 97.7 67 20 142/67 98 Room Air 12/17/16 00:00 66 12/16/16 21:30 75 135/67 12/16/16 21:00 67 78 12/16/16 20:00 97.9 75 20 135/67 100 Room Air 12/16/16 20:00 67 12/16/16 19:26 76 18 Room Air 12/16/16 16:00 70 12/16/16 15:45 97.0 80 18 118/50 99 Room Air 12/16/16 12:00 74 12/16/16 12:00 97.2 82 18 122/50 98 Room Air General Appearance: WD/WN HEENT: normocephalic, atraumatic Respiratory/Chest: chest wall non-tender, lungs clear Breasts: no masses Cardiovascular: normal peripheral pulses Abdomen: normal bowel sounds, soft, non tender Genitourinary: normal external genitalia Extremities: no cyanosis Skin: no rash 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 Lymphatic: no neck adenopathy Laboratory Tests 12/17/16 07:30: White Blood Count 4.3L, Red Blood Count 4.56, Hemoglobin 13.9, Hematocrit 42.5, Mean Corpuscular Volume 93, Mean Corpuscular Hemoglobin 30.6, Mean Corpuscular Hemoglobin Concent 32.9, Red Cell Distribution Width 12.2, Platelet Count 266, Mean Platelet Volume 6.2L, Neutrophils (%) (Auto) 47.3, Lymphocytes (%) (Auto) 35.4, Monocytes (%) (Auto) 14.3H, Eosinophils (%) (Auto) 2.1, Basophils (%) ( Auto) 0.9, Sodium Level 140, Potassium Level 3.8, Chloride Level 101, Carbon Dioxide Level 29, Anion Gap 10, Blood Urea Nitrogen 17, Creatinine 0.9, Estimat Glomerular Filtration Rate , Glucose Level 91, Calcium Level 8.9 Current Medications Medications (Trade) Dose Ordered Sig/Trudy Route PRN Reason Start Time Stop Time Status Last Admin Dose Admin Acetaminophen (Tylenol) 650 mg Q4H PRN ORAL fever 12/09/16 14:45 01/08/17 14:44 12/17/16 00:08 Al Hydroxide/Mg Hydroxide (Mylanta II) 30 ml Q6H PRN ORAL dyspepsia 12/09/16 14:45 01/08/17 14:44 Albuterol/ Ipratropium (DuoNeb 0.5-3(2.5)mg/3ml) 3 ml Q4H PRN HHN Shortness of Breath 12/12/16 10:45 12/17/16 23:59 Amlodipine Besylate (Norvasc) 2.5 mg DAILY ORAL 12/13/16 09:00 01/12/17 08:59 12/17/16 09:31 Apixaban (Eliquis) 5 mg BID ORAL 12/11/16 09:00 01/10/17 08:59 12/17/16 09:31 Clonidine HCl (Catapres) 0.1 mg Q4H PRN ORAL SBP > 160 12/09/16 14:45 01/08/17 14:44 Clopidogrel Bisulfate (Plavix) 75 mg DAILY ORAL 12/11/16 09:00 01/10/17 08:59 12/17/16 09:31 Dextrose (Dextrose 50%) STAT PRN IV Hypoglycemia 12/09/16 14:45 01/08/17 14:44 Diltiazem HCl (Cardizem) 10 mg Q1H PRN IV HR > SUSTAINED 120 12/10/16 08:15 01/09/17 08:14 12/10/16 10:48 Metoprolol Tartrate (Lopressor) 5 mg QIDPRN PRN IVP heart rate greater than 115 12/10/16 19:00 01/09/17 18:59 Metoprolol Tartrate (Lopressor) 100 mg Q12HR ORAL 12/14/16 16:30 01/13/17 16:29 12/17/16 09:32 Nitroglycerin (Ntg) 0.4 mg Q5M X 3 DOSES PRN SL Prn Chest Pain 12/09/16 14:45 01/08/17 14:44 Ondansetron HCl (Zofran) 4 mg Q6H PRN IVP Nausea & Vomiting 12/09/16 14:45 01/08/17 14:44 Pantoprazole (Protonix) 40 mg BID ORAL 12/10/16 18:00 01/09/17 17:59 12/17/16 09:31 Polyethylene Glycol (Miralax) 17 gm HSPRN PRN ORAL Constipation 12/09/16 14:45 01/08/17 14:44 Quetiapine Fumarate (SEROquel) 100 mg DAILY ORAL 12/15/16 09:00 01/10/17 08:59 12/17/16 09:31 Valproic Acid (Depakene) 250 mg TID ORAL 12/10/16 18:00 01/09/17 17:59 12/17/16 09:32 MARÍA JI Dec 17, 2016 11:41
[2016-12-17 12:00] VITALS: BP 146/70
--- NOTE | 2016-12-17 14:33 | Internal Med Progress Note ---
Subjective Physician Name Sim Engel Attending Physician Sim Engel MD Current Medications Medications (Trade) Dose Ordered Sig/Trudy Route PRN Reason Start Time Stop Time Status Last Admin Dose Admin Acetaminophen (Tylenol) 650 mg Q4H PRN ORAL fever 12/09/16 14:45 01/08/17 14:44 12/17/16 00:08 Al Hydroxide/Mg Hydroxide (Mylanta II) 30 ml Q6H PRN ORAL dyspepsia 12/09/16 14:45 01/08/17 14:44 Albuterol/ Ipratropium (DuoNeb 0.5-3(2.5)mg/3ml) 3 ml Q4H PRN HHN Shortness of Breath 12/12/16 10:45 12/17/16 23:59 Amlodipine Besylate (Norvasc) 2.5 mg DAILY ORAL 12/13/16 09:00 01/12/17 08:59 12/17/16 09:31 Apixaban (Eliquis) 5 mg BID ORAL 12/11/16 09:00 01/10/17 08:59 12/17/16 09:31 Clonidine HCl (Catapres) 0.1 mg Q4H PRN ORAL SBP > 160 12/09/16 14:45 01/08/17 14:44 Clopidogrel Bisulfate (Plavix) 75 mg DAILY ORAL 12/11/16 09:00 01/10/17 08:59 12/17/16 09:31 Dextrose (Dextrose 50%) STAT PRN IV Hypoglycemia 12/09/16 14:45 01/08/17 14:44 Diltiazem HCl (Cardizem) 10 mg Q1H PRN IV HR > SUSTAINED 120 12/10/16 08:15 01/09/17 08:14 12/10/16 10:48 Metoprolol Tartrate (Lopressor) 5 mg QIDPRN PRN IVP heart rate greater than 115 12/10/16 19:00 01/09/17 18:59 Metoprolol Tartrate (Lopressor) 100 mg Q12HR ORAL 12/14/16 16:30 01/13/17 16:29 12/17/16 09:32 Nitroglycerin (Ntg) 0.4 mg Q5M X 3 DOSES PRN SL Prn Chest Pain 12/09/16 14:45 01/08/17 14:44 Ondansetron HCl (Zofran) 4 mg Q6H PRN IVP Nausea & Vomiting 12/09/16 14:45 01/08/17 14:44 Pantoprazole (Protonix) 40 mg BID ORAL 12/10/16 18:00 01/09/17 17:59 12/17/16 09:31 Polyethylene Glycol (Miralax) 17 gm HSPRN PRN ORAL Constipation 12/09/16 14:45 01/08/17 14:44 Quetiapine Fumarate (SEROquel) 100 mg DAILY ORAL 12/15/16 09:00 01/10/17 08:59 12/17/16 09:31 Valproic Acid (Depakene) 250 mg TID ORAL 12/10/16 18:00 01/09/17 17:59 12/17/16 13:25 Allergies: Coded Allergies: No Known Allergies (Unverified , 10/22/13) Subjective feeling better, awake, alert, responsive. Objective Last Vital Signs Date Time Temp Pulse Resp B/P (MAP) Pulse Ox O2 Delivery O2 Flow Rate FiO2 12/17/16 12:00 97.5 80 20 146/70 100 Room Air 12/17/16 04:00 100 Laboratory Tests Test 12/17/16 07:30 White Blood Count 4.3 K/UL (4.8-10.8) L Red Blood Count 4.56 M/UL (4.20-5.40) Hemoglobin 13.9 G/DL (12.0-16.0) Hematocrit 42.5 % (37.0-47.0) Mean Corpuscular Volume 93 FL (80-99) Mean Corpuscular Hemoglobin 30.6 PG (27.0-31.0) Mean Corpuscular Hemoglobin Concent 32.9 G/DL (32.0-36.0) Red Cell Distribution Width 12.2 % (11.6-14.8) Platelet Count 266 K/UL (150-450) Mean Platelet Volume 6.2 FL (6.5-10.1) L Neutrophils (%) (Auto) 47.3 % (45.0-75.0) Lymphocytes (%) (Auto) 35.4 % (20.0-45.0) Monocytes (%) (Auto) 14.3 % (1.0-10.0) H Eosinophils (%) (Auto) 2.1 % (0.0-3.0) Basophils (%) (Auto) 0.9 % (0.0-2.0) Sodium Level 140 mEQ/L (135-145) Potassium Level 3.8 mEQ/L (3.4-4.9) Chloride Level 101 mEQ/L (98-107) Carbon Dioxide Level 29 mEQ/L (20-30) Anion Gap 10 (5-15) Blood Urea Nitrogen 17 mg/dL (7-23) Creatinine 0.9 mg/dL (0.5-0.9) Estimat Glomerular Filtration Rate mL/min (>60) Glucose Level 91 mg/dL (74-106) Calcium Level 8.9 mg/dL (8.6-10.2) Objective General: No acute distress, awake and alert HEENT: NCAT, sclera anicteric, PERRL, EOMI, left chin scab. Neck: Supple, no significant jugular venous distention, Lungs: fair inspiratory effort, clear to auscultation bilaterally, no Wheeze or Rales. Heart: IRRegular rate and rhythm, normal S1/S2, no murmurs, Left chest wall pacemaker. Abdomen: soft, nontender, nondistended. Normoactive bowel sounds. / Rectal: Refused and deferred. Extremities: No Cyanosis , clubbing or edema. Neuro: A&O x 3, Able to move all extremities equally. Skin: warm, no rashes Left chin scrape. Assessment/Plan Assessment/Plan 1. Acute UTI. 2. Fall 3. Atrial fibrillation with rapid ventricular rate. 4. Hypertension. 5. Rhabdomyolysis. 6. Pacemaker in situ. 7. Altered mental status most likely due to toxic metabolic encephalopathy. 8. Left knee pain due to Moderate to severe osteoarthritis of the knee. 9. Mild dehydration Plan: PT Mobility on Web[employer] monitor labs and cultures DC home today with HH. Sim Engel MD Dec 17, 2016 14:33
[2016-12-17 15:38] VITALS: BP 143/90
--- NOTE | 2016-12-17 17:09 | Cardiology Progress Note ---
Assessment/Plan Assessment/Plan perm afib ventricular pacing fall with injury htn hld cad s/p oca pci rhabdo nsvt vs aberrancy hr better stabel on bb on anticoagulation stable renal function ck down trend ok to dc form my view point dc tele Subjective ROS Limited/Unobtainable: Yes Objective Last 24 Hour Vital Signs Date Time Temp Pulse Resp B/P (MAP) Pulse Ox O2 Delivery O2 Flow Rate FiO2 12/17/16 16:00 87 12/17/16 15:38 97.5 86 18 143/90 100 Room Air 12/17/16 12:00 97.5 80 20 146/70 100 Room Air 12/17/16 12:00 68 12/17/16 09:32 68 133/74 12/17/16 09:31 68 133/74 12/17/16 08:00 97.7 68 18 133/74 100 Room Air 12/17/16 08:00 68 79 103 12/17/16 08:00 95 12/17/16 04:00 97.7 78 20 140/68 Room Air 100 12/17/16 04:00 78 12/17/16 01:07 97.7 12/17/16 00:01 97.7 67 20 142/67 98 Room Air 12/17/16 00:00 66 12/16/16 21:30 75 135/67 12/16/16 21:00 67 78 12/16/16 20:00 97.9 75 20 135/67 100 Room Air 12/16/16 20:00 67 12/16/16 19:26 76 18 Room Air General Appearance: no apparent distress, alert Intake and Output 12/17/16 12/18/16 19:00 07:00 Intake Total 195 ml Output Total 300 ml Balance -105 ml Intake Oral 195 ml Output Urine Total 300 ml Laboratory Tests Test 12/17/16 07:30 White Blood Count 4.3 K/UL (4.8-10.8) L Red Blood Count 4.56 M/UL (4.20-5.40) Hemoglobin 13.9 G/DL (12.0-16.0) Hematocrit 42.5 % (37.0-47.0) Mean Corpuscular Volume 93 FL (80-99) Mean Corpuscular Hemoglobin 30.6 PG (27.0-31.0) Mean Corpuscular Hemoglobin Concent 32.9 G/DL (32.0-36.0) Red Cell Distribution Width 12.2 % (11.6-14.8) Platelet Count 266 K/UL (150-450) Mean Platelet Volume 6.2 FL (6.5-10.1) L Neutrophils (%) (Auto) 47.3 % (45.0-75.0) Lymphocytes (%) (Auto) 35.4 % (20.0-45.0) Monocytes (%) (Auto) 14.3 % (1.0-10.0) H Eosinophils (%) (Auto) 2.1 % (0.0-3.0) Basophils (%) (Auto) 0.9 % (0.0-2.0) Sodium Level 140 mEQ/L (135-145) Potassium Level 3.8 mEQ/L (3.4-4.9) Chloride Level 101 mEQ/L (98-107) Carbon Dioxide Level 29 mEQ/L (20-30) Anion Gap 10 (5-15) Blood Urea Nitrogen 17 mg/dL (7-23) Creatinine 0.9 mg/dL (0.5-0.9) Estimat Glomerular Filtration Rate mL/min (>60) Glucose Level 91 mg/dL (74-106) Calcium Level 8.9 mg/dL (8.6-10.2) MARIE MARQUES Dec 17, 2016 17:09
--- NOTE | 2016-12-20 16:12 | Cardiology Report ---
APPROVED REPORT EXAM: Two-dimensional and M-mode echocardiogram with Doppler and color Doppler. INDICATION Left Ventricular Function M-Mode DIMENSIONS IVSd1.3 (0.7-1.1cm)Left Atrium (MM)5.3 (1.6-4.0cm) LVDd4.4 (3.5-5.6cm)Aortic Root2.6 (2.0-3.7cm) PWd1.2 (0.7-1.1cm)Aortic Cusp Exc.1.9 (1.5-2.0cm) LVDs2.1 (2.5-4.0cm) PWs1.8 cm Technically difficult study due to poor acoustic windows. Study quality precludes accurate assessment of regional wall motion. Normal left ventricular chamber size, systolic function and wall motion. Left ventricular ejection fraction estimated to be 55 %. Mild left ventricular hypertrophy. Trivial pericardial effusion. Severe bi-atrial enlargement. Right ventricular chamber size is within normal limits. Mild focal aortic valve sclerosis with adequate cusp excursion. Mildly thickened mitral valve leaflets with normal excursion. Mild mitral annulus and aortic root calcification. Pulmonic valve not well visualized. Normal tricuspid valve structure. IVC is at normal size with physiologic collapse. A color flow and spectral Doppler study was performed and revealed: No aortic regurgitation. Trace mitral regurgitation. Left ventricular diastolic function could not be determined due to A-Fib. Mild to moderate tricuspid regurgitation. Tricuspid systolic velocities suggests peak right ventricular systolic pressure of 58 mmHg, consistent with moderate to severe pulmonary hypertension. No pulmonic regurgitation present.
--- NOTE | 2016-12-21 08:30 | Consultation ---
DATE OF CONSULTATION: 12/10/2016 CARDIOLOGY CONSULTATION CONSULTING PHYSICIAN: Ponce Tomas M.D. REFERRING PHYSICIAN: Sim Engel M.D. REASON FOR REFERRAL: Tachycardia. History of present illness: This is an 81-year-old female, who presented to the hospital at [facility] with a chief complaint of generalized weakness, apparently a poor historian. She tells me that she was washing herself, she lost balance and fell in the bathroom and she was brought to the emergency room when the neighbors found her on the floor and called 911. She was complaining of some left facial pain and she had sustained a bruise in that area and also some in left arm. She does have a history of arrhythmias and the records from [facility] were reviewed. She really does have a history of irregular heart beat on prior occasions. She has history of coronary artery disease. Otherwise, during this hospital stay, she was noted to have significant tachycardia. Diltiazem had been tried and was ineffective, beta-blockers were administered on my recommendations. The heart rate did improve, but she remains intermittently in rapid heart rate. She has occasional sharp shooting pain. She says there is no PND or orthopnea. She does have palpitations. She does have dizziness or lightheadedness on standing. Past Medical History: According to the [facility] record is positive history of hypertension and hyperlipidemia. She has a history of coronary artery disease. She is status post percutaneous coronary intervention of the right coronary artery with a drug-eluting stent in March 2013. She has a history of atrial fibrillation with rapid ventricular response and carotid artery stenosis, reflux disease, osteoarthritis, anxiety, appendectomy, tonsillectomy, hysterectomy, and hip replacement. ALLERGIES: She is not allergic to any medications. Social history: She does not smoke at this time. No drugs. No alcohol. Review Of Systems: Gastrointestinal: She has nausea and vomiting. No bloody or black stool. Genitourinary: Negative. Pulmonary: Positive coughing and wheezing. Constitutional: She has positive fevers, chills, and night sweats. Neurological: No numbness, tingling, or sensation in her legs. PHYSICAL EXAMINATION: General: Shows to be an elderly female, in no respiratory distress. She appears to be quite awake and responsive. Vital signs: Blood pressure is 118/60 to 138/67 and heart rates 80 to 180. NECK: Supple. No jugular venous distention. LUNGS: Clear to auscultation and percussion. Cardiac: S1 is normal. S2 is normal. Irregularly irregular. Tachycardic. ABDOMEN: Soft and nontender. Positive bowel sounds. EXTREMITIES: There is no edema. SKIN: She has an eschar on the left side of her face and cheek. Neurologic: She is awake, alert, responsive, in no apparent distress. Laboratory And Diagnostic Data: White count is 10.9, hemoglobin 12.4, and platelet count of 154,000. Sodium is 137, potassium 4.1, chloride 101, bicarbonate 23, BUN of 18, creatinine 1.1, glucose of 104, and calcium is 8.8. Her total CPK has been as high as 14,000 at the time of admission and subsequently 13,050. Troponins are negative. ProBNP is 5500 on admission and subsequently 2900. Her serum alcohol level was less than 10 at the time of admission. Urinalysis shows 4+ protein, 1+ glucose, 2+ ketones, 5+ RBCs, 3+ leukocyte esterase, 15 to 20 RBCs, 10 to 15 WBCs, and moderate bacteria was noted. Imaging, CT scan of the knee showed [id number] osteoarthritis, left patellar subluxation, and atherosclerotic disease being noted. Carotid duplex shows 30 to 40% on the right, 50 to 60% proximal internal carotid artery and 10 to 30% on the left side. Her cervical spine series have been read as no bony trauma, degenerative disease noted, and her chest x-ray shows possible small left pleural effusion. No acute process otherwise, cardiomegaly was noted. CT scan of the head was noted to show chronic and age-related changes, posterior parietal calcification, not evident previously, significance is uncertain, likely possibly postinflammatory. Her preliminary echocardiogram shows a normal wall motion, technically difficult study, ejection fraction 55%, biatrial enlargement, and right ventricle normal size, atrial fibrillation, currently under diastolic dysfunction evaluation, [id number] tricuspid regurgitation, and pulmonary artery systolic pressure of 58. EKG shows at least on one occasion on 12/09/2016, atrial fibrillation with ST-segment depression in I, aVL as well as V6. No other significant abnormalities. Telemetry data has shown heart rates that are variable, at times with atrial fibrillation with rapid ventricular response with heart rates in the 180s at some point, prior to my notification. ASSESSMENT AND PLAN: 1. Atrial fibrillation, permanent. 2. History of ventricular pacing. 3. History of coronary artery disease, status post right coronary artery percutaneous coronary intervention. 4. History of systemic hypertension. 5. Gastroesophageal reflux. 6. Hyperlipidemia. This patient was seen in cardiac consultation. The patient's response to calcium channel blockers was poor. The patient was resumed back on metoprolol intravenously and the dose will be given stat. The patient will be started on higher doses of metoprolol orally to which she has previously responded to apparently. Her Xarelto will be on hold because of her fall recently, but that should be considered to be resumed soon. As for CT imaging, it has been basically unremarkable so far. As far as bleeding is concerned, there is a need to have assessment of her risk of fall to see whether she should be continued on anticoagulation long-term. She will have cardiac enzymes repeated and EKG will be repeated as well. Ponce Tomas M.D. DR: Kaley JOB#: [id number] CC:
--- NOTE | 2016-12-27 12:52 | Discharge Summary ---
Discharge Summary Hospital Course Date of Admission Dec 09, 2016 at 14:13 Date of Discharge Dec 17, 2016 at 18:57 Admitting Diagnosis syncope/fall HPI Stephanie Valadez is a 81 year old female who was admitted on Dec 09, 2016 at 14:13 for Syncope/Fall Hospital Course dc summary #[id number] Discharge Medications New Medications: Amlodipine Besylate (Norvasc) 2.5 Mg Tablet 2.5 MG ORAL DAILY for 30 Days, TAB Metoprolol Tartrate* (Metoprolol Tartrate*) 100 Mg Tablet 100 MG ORAL Q12HR for 30 Days, TAB Quetiapine Fumarate* (Seroquel*) 100 Mg Tablet 100 MG ORAL DAILY for 30 Days, TAB Continued Medications: Lansoprazole* (Prevacid*) 30 Mg Capsule.dr 30 MG ORAL BID, CAP Valproic Acid (Depakene) 250 Mg Cap 250 MG ORAL TID, CAP Discontinued Medications: Quetiapine Fumarate* (Quetiapine Fumarate*) 50 Mg Tablet 100 MG ORAL DAILY, TAB Discharge Condition Upon Discharge: stable Discharge Disposition Patient was discharged to Home with Home Health(06) Discharge Diagnoses: Ahsan (Julianaeverett)Yuki NP Dec 27, 2016 12:52
--- NOTE | 2016-12-28 04:15 | Discharge Summary 2 SIG ---
DATE OF ADMISSION: 12/09/2016 DATE OF DISCHARGE: 12/17/2016 Reason For Admission: The patient is an 81-year-old female with a history of hypertension, dementia, pacemaker, and atrial fibrillation, was presented to emergency department after a fall. The patient by herself is a poor historian was unable to provide a consistent history. She reported sleeping out of the bed and falling on the floor. She is not sure if she lost any consciousness. Housing Manager reported that neighbor found her on the floor and called 911. The patient denied chest pain, shortness of breath, nausea, vomiting, or abdominal pain. She reported left knee pain and left facial pain for which she sustained a bruise. CT of the head was negative for acute intracranial bleeding. Heart rate was between 100 and 120. EKG revealed atrial fibrillation with a heart rate of 120. Chest x-ray revealed cardiomegaly, no effusion, no consolidation, no pneumothorax. EKG also revealed in addition to tachycardia with heart rate of 106, which revealed T-wave inversion in inferior and lateral leads. CT of the C-spine revealed no acute bony trauma. Vital signs were stable. Blood pressure slightly elevated at 161/68. Urinalysis revealed pyuria and moderate bacteria. CK was 14,190. Troponin was negative. The patient was admitted for further management. ADMITTING DIAGNOSES: 1. Acute encephalopathy, status post fall. 2. Atrial fibrillation with rapid ventricular response. 3. Hypertension. 4. Rhabdomyolysis. 5. Head trauma, possible syncope. 6. Possible urinary tract infection. Hospital Course: The patient was admitted to the telemetry floor. Cardiology and Pulmonology consults were requested. To reiterate, CT of the head revealed no evidence of acute intracranial bleeding or mass effect. It did show chronic age-related changes. Echocardiogram revealed ejection fraction of 55% with mild left ventricular hypertrophy and right ventricular systolic pressure of 58 consistent with moderate to severe pulmonary hypertension. Carotid duplex showed minimal degree and stenosis of common carotid artery and moderate amount of stenosis in the proximal internal carotid artery and external carotid artery. Cardiology consult was requested. Geothermal Installer concluded that the patient has a permanent atrial fibrillation, rate was controlled with beta-elton and the patient was started on the Eliquis since the patient has a high risk for stroke and benefits outweigh the risks. Antihypertensive medications were titrated. The patient was on the IV fluids. CK was closely followed. CK was trending down. Rhabdomyolysis likely due to prolonged immobilization. The patient was unable to say how long she was lying on the floor until was found by production expediter. Renal parameters stable. Urine culture revealed strep viridans. The patient was on IV antibiotic while in the hospital status post treatment. Fall precaution was maintained. The patient was working with the physical and occupational therapy. Mental status improving to baseline. The patient has underlying dementia. Due to elevated LFT, the patient undergone abdominal ultrasound. Of note, the last CK is down to 1381 from initial 14,190. ProBNP was trending down as well. Serial troponins were negative x3. The patient was ruled out for acute SD. Hepatitis panel was negative and abdominal ultrasound was negative. LFTs were closely monitored and LFT were trending down. Lipid panel was stable. TSH was within normal limits. The patient was V pacing on telemetry. Geothermal Installer cleared the patient for discharge since heart rate was better and stable on the beta-elton. Blood pressure was controlled and continue anticoagulation. The patient was discharged to long term facility. Of note, wound care provided as per wound care protocol. Renal parameters and electrolytes were stable with IV hydration. Creatinine was down to 0.9 from initial 1.1 and 1.2 and BUN of 16 initial and BUN without change. FINAL DIAGNOSES: 1. Acute toxic metabolic encephalopathy on chronic vascular dementia, resolved to baseline. 2. Atrial fibrillation with rapid ventricular response. 3. Permanent atrial fibrillation. 4. Rhabdomyolysis, improving. 5. Hypertension. 6. Status post fall. 7. Possible syncope. 8. Head trauma. 9. Urinary tract infection with strep viridans. 10. Mild dehydration. 11. Transaminitis. 12. Coronary artery disease with percutaneous coronary intervention. 13. Pacemaker. 14. Hyperlipidemia. Of note, mild dehydration resolved with intravenous hydration, status post treatment with antibiotics. Syncope was likely secondary to dehydration as well as the urinary tract infection. Since no evidence of cardiac pathology, cardiac workup negative, no arrhythmia. No neuro findings to account for the syncope likely vasovagal versus due to dehydration and urinary tract infection. Sim Engel M.D. I have been assigned to dictate discharge summary on this account and I was not involved in the patient's management. Yuki Foreman N.P. (vanchtein) DR: STACEY JOB#: [id number] CC:
== END 2016-12-17 18:57 | disposition home health service (06) | DRG 92 ==
LOC: EDBD 13:18 → EMR 14:10 → 2E 14:13 → MERGE 14:13 → EDBEDREQ 14:30 → 2E 12-10 09:50
DX: G92 Toxic encephalopathy (principal); M62.82 Rhabdomyolysis; I42.9 Cardiomyopathy, unspecified; I27.2 Other secondary pulmonary hypertension; N39.0 Urinary tract infection, site not specified; I48.2 Chronic atrial fibrillation; I10 Essential (primary) hypertension; R55 Syncope and collapse; F01.50 Vascular dementia, unspecified severity, without behavioral disturbance, psychotic disturbance, mood disturbance, and anxiety; E86.0 Dehydration; W06.XXXA Fall from bed, initial encounter; Z79.01 Long term (current) use of anticoagulants; Z95.0 Presence of cardiac pacemaker; I25.10 Atherosclerotic heart disease of native coronary artery without angina pectoris; Z98.61 Coronary angioplasty status; M17.12 Unilateral primary osteoarthritis, left knee; F29 Unspecified psychosis not due to a substance or known physiological condition; S00.83XA Contusion of other part of head, initial encounter; S40.022A Contusion of left upper arm, initial encounter; I36.1 Nonrheumatic tricuspid (valve) insufficiency; K21.9 Gastro-esophageal reflux disease without esophagitis; R00.0 Tachycardia, unspecified; E78.5 Hyperlipidemia, unspecified
CPT/HCPCS: 36415; 70450; 71010; 72125; 76700; 80048; 80053; 80061; 80329; 81003; 82140; 82550; 82553; 82962; 82977; 83735; 83880; 84100; 84443; 84484; 85025; 85610; 85730; 86705; 86709; 86803; 87086; 87340; 90471; 90715; 93005; 93306; 93880; 94664

== ENCOUNTER 2017-03-17 01:20 | Inpatient (IN) | payer MEDICARE, BC ==
[~2017-03-17] VITALS: Ht 167.6 cm; Wt 72.6 kg
[~2017-03-17 01:20] MED LIST changes: +METOPROLOL TAR100 MG ORAL; +NORVASC2.5 MG ORAL; +SEROQUEL100 MG ORAL; +UNOBMED
[2017-03-17 02:18] VITALS: BP 115/60
[2017-03-17 02:19] LABS: BASOPHILS % (AUTO) 1.2 % (0.0-2.0); EOSINOPHILS % (AUTO) 1.2 % (0.0-3.0); LYMPHOCYTES % (AUTO) 17.5 % (20.0-45.0); MEAN CORPUSCULAR HEMOGLOBIN 29.9 PG (27.0-31.0); MEAN CORPUSCULAR HGB CONC 31.2 G/DL (32.0-36.0); MEAN CORPUSCULAR VOLUME 96 FL (80-99); MEAN PLATELET VOLUME 6.7 FL (6.5-10.1); MONOCYTES % (AUTO) 7.8 % (1.0-10.0); NEUTROPHILS % (AUTO) 72.4 % (45.0-75.0); PLATELET COUNT 228 K/UL (150-450); RED BLOOD COUNT 4.31 M/UL (4.20-5.40); RED CELL DISTRIBUTION WIDTH 14.4 % (11.6-14.8)
[2017-03-17 02:33] LABS: ANION GAP 7 mmol/L (5-15); CALCIUM 9.1 MG/DL (8.5-10.1); CARBON DIOXIDE 28 MMOL/L (21-32); CHLORIDE 104 MMOL/L (98-107); POTASSIUM 4.7 MMOL/L (3.5-5.1); PROTHROMBIN TIME 10.6 SEC (9.30-11.50); SODIUM 139 MMOL/L (136-145)
[2017-03-17 02:44] LABS: ALANINE AMINOTRANSFERASE 10 U/L (12-78); ALBUMIN/GLOBULIN RATIO 0.7 (1.0-2.7); ASPARTATE AMINO TRANSFERASE 42 U/L (15-37); TOTAL PROTEIN 7.8 G/DL (6.4-8.2)
--- NOTE | 2017-03-17 03:22 | Emergency Room Report ---
History of Present Illness General Chief Complaint: Syncope Source: Patient, Family Member, EMS Present Illness HPI 81-year-old female with pmhx of HTN, atrial fibrillation on Eliquis. P/w syncopal episode. Per EMS, patient was on with daughter, daughter heard a thump, she came into the room and patient was on a chair slumped over, did not hit the ground, no head trauma, patient lost consciousness for about 2-3 min. Per the daughter, patient was at her baseline mental status after the event Patient is very poor historian and not giving clear history There was no seizure like activity, tongue biting, urinary incontinence, blurry vision, or SOTO. Pt has been eating/drinking well. Denies recent fever, chills, n/v/d. Allergies: Coded Allergies: No Known Allergies (Unverified , 10/22/13) Patient History Past Medical History: see triage record Past Surgical History: none Pertinent Family History: none Last Menstrual Period: NA Reviewed Nursing Documentation: PMH: Agreed, PSxH: Agreed Nursing Documentation-PMH Hx Cardiac Problems: Yes - Chronic a-fib, CHF, Coronary atherosclerosis, hyperlididemia, hypothyroidis Hx Hypertension: Yes - anemia Hx Pacemaker: Yes Hx Asthma: No Hx COPD: No Hx Diabetes: No Hx Cancer: No Hx Gastrointestinal Problems: Yes - GERD Hx Dialysis: No Hx Neurological Problems: Yes - Dementia; difficulty in walking; foot pain Hx Cerebrovascular Accident: No Hx Dementia: Yes - new onset Hx Seizures: No Hx Memory Loss: Yes Hx Concentration Difficulty: Yes Hx Weakness: Yes Review of Systems All Other Systems: limited - dementia Physical Exam Vital Signs Date Time Temp Pulse Resp B/P (MAP) Pulse Ox O2 Delivery O2 Flow Rate FiO2 03/17/17 01:18 97.3 94 16 151/69 94 Room Air Sp02 EP Interpretation: reviewed, normal General Appearance: other - elderly female, confused, dementia, nontoxic Head: normocephalic, atraumatic Eyes: bilateral eye normal inspection, bilateral eye PERRL, bilateral eye EOMI ENT: normal ENT inspection, normal pharynx, normal voice, moist mucus membranes Neck: normal inspection, full range of motion, supple Respiratory: normal inspection, lungs clear, normal breath sounds, no respiratory distress, no retraction, no wheezing, speaking full sentences, chest symmetrical Cardiovascular #1: no edema, normal capillary refill, irregularly irregular Cardiovascular #2: 2+ radial (R), 2+ radial (L) Gastrointestinal: normal inspection, non tender, soft, non-distended, no guarding Musculoskeletal: normal inspection, back normal, normal range of motion, non- tender Neurologic: responsive, clinical rehab liaison III-XII nml as tested, motor strength/tone normal, sensory intact, normal gait, speech normal, other - aox1 Psychiatric: other - dementia Skin: normal inspection, normal color, no rash, warm/dry, well hydrated, normal turgor Medical Decision Making Diagnostic Impression: Primary Impression: Syncope ER Course 81-year-old female with syncopal episode DDX: Vasovagal vs. orthostatic / hypovolemic/dehydration vs. cardiac arrhythmia (SVT , Afib) vs. cardiac (, ACS) vs. PE vs. metabolic (hypoglycemia, hypoxia), vs neuro (seizure, CVA, intracranial bleed) UTI Plan: bgm, cbc, bmp, ekg, cxr consider IVF ER course: Patient has remained stable during ED stay. No further syncopal episodes Disposition: Patient requires admission to telemetry. Patient requires further workup of syncopal episode, further lab testing, serial troponins, cardiac monitoring D/W hospitalist Please note that this Emergency Department Report was dictated using [employer] Translationlaser technician technology software, occasionally this can lead to erroneous entry secondary to interpretation by the dictation equipment EKG Diagnostic Results EP Interpretation: Yes Rate: normal Rhythm: Atrial fibrillation ST Segments: T-wave inversion noted in leads 3 and aVF ASA given to patient: No Rhythm Strip EP Interpretation: Yes Rate:90 Rhythm: Atrial fibrillation Chest X-ray CXR: Ordered: Yes 1 view Indication: Syncope EP interpretation: Yes Interpretation: pacemaker L chest, cardiomegaly Impression: cardiomegaly Electronically signed by Jack Vizcarra MD Laboratory Tests Test 03/17/17 02:00 03/17/17 05:29 White Blood Count 6.0 K/UL (4.8-10.8) Red Blood Count 4.31 M/UL (4.20-5.40) Hemoglobin 12.9 G/DL (12.0-16.0) Hematocrit 41.4 % (37.0-47.0) Mean Corpuscular Volume 96 FL (80-99) Mean Corpuscular Hemoglobin 29.9 PG (27.0-31.0) Mean Corpuscular Hemoglobin Concent 31.2 G/DL (32.0-36.0) L Red Cell Distribution Width 14.4 % (11.6-14.8) Platelet Count 228 K/UL (150-450) Mean Platelet Volume 6.7 FL (6.5-10.1) Neutrophils (%) (Auto) 72.4 % (45.0-75.0) Lymphocytes (%) (Auto) 17.5 % (20.0-45.0) L Monocytes (%) (Auto) 7.8 % (1.0-10.0) Eosinophils (%) (Auto) 1.2 % (0.0-3.0) Basophils (%) (Auto) 1.2 % (0.0-2.0) Prothrombin Time 10.6 SEC (9.30-11.50) Prothrombin Time INR 1.0 (0.9-1.1) PTT 28 SEC (23-33) Sodium Level 139 MMOL/L (136-145) Potassium Level 4.7 MMOL/L (3.5-5.1) Chloride Level 104 MMOL/L (98-107) Carbon Dioxide Level 28 MMOL/L (21-32) Anion Gap 7 mmol/L (5-15) Blood Urea Nitrogen 14 mg/dL (7-18) Creatinine 2.0 MG/DL (0.55-1.30) H Estimate Glomerular Filtration Rate mL/min (>60) Glucose Level 108 MG/DL (74-106) H Calcium Level 9.1 MG/DL (8.5-10.1) Total Bilirubin 0.5 MG/DL (0.2-1.0) Aspartate Amino Transferase (AST) 42 U/L (15-37) H Alanine Aminotransferase (ALT) 10 U/L (12-78) L Alkaline Phosphatase 52 U/L (46-116) Troponin I 0.008 ng/mL (0.000-0.056) Pro-B-Type Natriuretic Peptide 4754 pg/mL (0-125) H Total Protein 7.8 G/DL (6.4-8.2) Albumin 3.1 G/DL (3.4-5.0) L Globulin 4.7 g/dL Albumin/Globulin Ratio 0.7 (1.0-2.7) L Urine Color Pale yellow Urine Appearance Clear Urine pH 7 (4.5-8.0) Urine Specific [place] 1.005 (1.005-1.035) Urine Protein 3+ (NEGATIVE) H Urine Glucose (UA) Negative (NEGATIVE) Urine Ketones Negative (NEGATIVE) Urine Occult Blood 1+ (NEGATIVE) H Urine Nitrite Negative (NEGATIVE) Urine Bilirubin Negative (NEGATIVE) Urine Urobilinogen 1 MG/DL (0.0-1.0) H Urine Leukocyte Esterase Negative (NEGATIVE) Urine RBC 2-4 /HPF (0 - 2) H Urine WBC 0-2 /HPF (0 - 2) Urine Squamous Epithelial Cells Few /LPF (NONE/OCC) Urine Bacteria Few /HPF (NONE) Last Vital Signs Date Time Temp Pulse Resp B/P (MAP) Pulse Ox O2 Delivery O2 Flow Rate FiO2 03/17/17 02:18 96.8 73 13 115/60 100 Room Air Disposition: ADMITTED INPATIENT Condition: Serious Referrals: NOT CHOSEN IPA/,REFERRING (PCP) Jack Vizcarra M.D. Mar 17, 2017 03:22
[2017-03-17 05:30] VITALS: BP 144/70
[2017-03-17 05:42] LABS: APPEARANCE,URINE CLEAR; KETONES,URINE NEGATIVE (NEGATIVE); LEUKOCYTE ESTERASE ,URINE NEGATIVE (NEGATIVE); NITRITE,URINE NEGATIVE (NEGATIVE); PH,URINE 7 (4.5-8.0); PROTEIN,URINE 3+ (NEGATIVE); UROBILINOGEN,URINE 1 MG/DL (0.0-1.0)
[2017-03-17 06:06] LABS: BACTERIA,URINE FEW /HPF; SQUAMOUS EPITHELIAL CELL,UR FEW /LPF (NONE/OCC); WBC,URINE 0-2 /HPF (0 - 2)
[2017-03-17] MEDS ORDERED: Mylanta II UD 30ml ORAL PRN (07:00)
[2017-03-17] MEDS ORDERED: Miralax 17gm pkt ORAL PRN (07:00)
[2017-03-17] MEDS ORDERED: Nitroglycerin Subl 0.4mg tab SL PRN (07:00)
[2017-03-17] MEDS ORDERED: Morphine Sulfate 2mg/ml Inj IVP PRN (07:00)
[2017-03-17] MEDS ORDERED: Albuterol/Ipratropium 3ml neb HHN PRN (07:00)
[2017-03-17 07:13] VITALS: BP 155/81
[2017-03-17 08:00] VITALS: BP 153/81
[2017-03-17] MEDS ORDERED: Furosemide 40mg tab ORAL SCH (09:00)
[2017-03-17] MEDS: Heparin 5000 units/ml inj SUBQ SCH ×2 (09:38→22:22)
--- NOTE | 2017-03-17 11:03 | Diagnostic Imaging Report ---
Indication: Chest pain Technique: XRAY Chest 1v Comparison: 10/22/2013 Findings: Cardiomegaly again noted. Atherosclerotic calcifications noted in the aortic arch. Interval placement of left-sided single lead pacemaker. There is vertical opacification in the left lower lung most likely representing atelectasis or scarring. There is mild central pulmonary vascular congestion. No pleural effusion. No pneumothorax. There is unchanged biapical pleural capping. Multilevel degenerative changes are seen in the thoracic spine. Degenerative changes are also noted in the right shoulder. No acute osseous abnormality seen. Impression: Cardiomegaly with mild pulmonary vascular congestion. Linear opacification at the left base most likely related to atelectasis or scarring.
--- NOTE | 2017-03-17 12:26 | Consultation ---
History of Present Illness General Date patient seen: Mar 17, 2017 Chief Complaint: Syncope Referring physician: Dr. Engel Present Illness HPI 81-year-old female with pmhx of HTN, atrial fibrillation on Eliquis. presented to [facility] [place] CC of syncopal episode. She was was on a chair slumped over, did not hit the ground, no head trauma, patient lost consciousness for about 2-3 min. . Per the daughter, patient was at her baseline mental status after the event. Currently she is awake and looks comfortable, c/o increasing weakness and frequent falls. Allergies: Coded Allergies: No Known Allergies (Unverified , 10/22/13) Medication History Scheduled Amlodipine Besylate (Norvasc), 2.5 MG ORAL DAILY Aspirin* (Ecotrin*), 81 MG ORAL DAILY, (Reported) Clopidogrel Bisulfate* (Plavix*), 75 MG ORAL DAILY, (Reported) Furosemide* (Lasix*), 40 MG ORAL DAILY, (Reported) Lansoprazole* (Prevacid*), 30 MG ORAL BID, (Reported) Lansoprazole* (Prevacid*), 30 MG ORAL DAILY, (Reported) Metoprolol Succinate* (Metoprolol Succinate*), 100 MG ORAL DAILY, (Reported) Metoprolol Succinate* (Metoprolol Succinate*), 100 MG ORAL DAILY, (Reported) Metoprolol Tartrate* (Metoprolol Tartrate*), 100 MG ORAL Q12HR [place]-3 Acid Ethyl Esters (Lovaza), 1 GM ORAL DAILY, (Reported) Potassium Chloride (Klor-Con), 8.8 MEQ ORAL DAILY, (Reported) Quetiapine Fumarate* (Seroquel*), 25 MG ORAL DAILY Quetiapine Fumarate* (Seroquel*), 100 MG ORAL DAILY Ranitidine HCl (Ranitidine HCl), 150 MG PO BID, (Reported) Rivaroxaban (Xarelto*), 15 MG ORAL DAILY, (Reported) Rosuvastatin Calcium* (Crestor*), 40 MG ORAL DAILY, (Reported) Rosuvastatin Calcium* (Crestor*), 20 MG ORAL DAILY, (Reported) Temazepam (Temazepam*), 15 MG ORAL BEDTIME, (Reported) Valproic Acid (Depakene), 250 MG ORAL TID, (Reported) Valproic Acid (Depakene), 250 MG ORAL TID, (Reported) Valsartan (Diovan), 80 MG ORAL BID, (Reported) Valsartan (Diovan), 80 MG ORAL BID, (Reported) Scheduled PRN Temazepam* (Restoril*), 15 MG ORAL BEDTIME PRN for Insomnia, (Reported) Miscellaneous Medications Calcium Carbonate/Vitamin D3 (Calcium + Vitamin D Tablet), 1 EACH PO, (Reported) Unable to Obtain Medications (Unable To Obtain Meds), (Reported) Patient History Healthcare decision maker Resuscitation status Advanced Directive on File Past Medical/Surgical History Past Medical/Surgical History: (1) Pacemaker (2) Atrial fibrillation (3) dementia vascular Review of Systems Constitutional: Reports: malaise, weakness Cardiovascular: Reports: no symptoms Gastrointestinal: Reports: no symptoms Physical Exam General Appearance: cachetic Lines, tubes and drains: peripheral, central line HEENT: normocephalic, atraumatic Neck: non-tender, normal alignment Respiratory/Chest: chest wall non-tender, normal breath sounds Abdomen: normal bowel sounds, soft Genitourinary/Rectal: normal genital exam Last 24 Hour Vital Signs Date Time Temp Pulse Resp B/P (MAP) Pulse Ox O2 Delivery O2 Flow Rate FiO2 03/17/17 09:30 84 153/81 03/17/17 08:00 97.9 84 20 153/81 100 03/17/17 07:26 125 03/17/17 07:13 97.9 100 21 155/81 99 Room Air 03/17/17 07:00 101 03/17/17 06:22 96.8 73 13 144/70 100 Room Air 111 03/17/17 05:30 96.8 111 13 144/70 100 Room Air 03/17/17 02:18 96.8 73 13 115/60 100 Room Air 03/17/17 01:18 97.3 94 16 151/69 94 Room Air Intake and Output 03/17/17 03/18/17 19:00 07:00 Output Total 300 ml Balance -300 ml Output Urine Total 300 ml Laboratory Tests Test 03/17/17 02:00 03/17/17 05:29 White Blood Count 6.0 K/UL (4.8-10.8) Red Blood Count 4.31 M/UL (4.20-5.40) Hemoglobin 12.9 G/DL (12.0-16.0) Hematocrit 41.4 % (37.0-47.0) Mean Corpuscular Volume 96 FL (80-99) Mean Corpuscular Hemoglobin 29.9 PG (27.0-31.0) Mean Corpuscular Hemoglobin Concent 31.2 G/DL (32.0-36.0) L Red Cell Distribution Width 14.4 % (11.6-14.8) Platelet Count 228 K/UL (150-450) Mean Platelet Volume 6.7 FL (6.5-10.1) Neutrophils (%) (Auto) 72.4 % (45.0-75.0) Lymphocytes (%) (Auto) 17.5 % (20.0-45.0) L Monocytes (%) (Auto) 7.8 % (1.0-10.0) Eosinophils (%) (Auto) 1.2 % (0.0-3.0) Basophils (%) (Auto) 1.2 % (0.0-2.0) Prothrombin Time 10.6 SEC (9.30-11.50) Prothromb Time International Ratio 1.0 (0.9-1.1) Activated Partial Thromboplast Time 28 SEC (23-33) Sodium Level 139 MMOL/L (136-145) Potassium Level 4.7 MMOL/L (3.5-5.1) Chloride Level 104 MMOL/L (98-107) Carbon Dioxide Level 28 MMOL/L (21-32) Anion Gap 7 mmol/L (5-15) Blood Urea Nitrogen 14 mg/dL (7-18) Creatinine 2.0 MG/DL (0.55-1.30) H Estimat Glomerular Filtration Rate mL/min (>60) Glucose Level 108 MG/DL (74-106) H Calcium Level 9.1 MG/DL (8.5-10.1) Total Bilirubin 0.5 MG/DL (0.2-1.0) Aspartate Amino Transf (AST/SGOT) 42 U/L (15-37) H Alanine Aminotransferase (ALT/SGPT) 10 U/L (12-78) L Alkaline Phosphatase 52 U/L (46-116) Troponin I 0.008 ng/mL (0.000-0.056) Pro-B-Type Natriuretic Peptide 4754 pg/mL (0-125) H Total Protein 7.8 G/DL (6.4-8.2) Albumin 3.1 G/DL (3.4-5.0) L Globulin 4.7 g/dL Albumin/Globulin Ratio 0.7 (1.0-2.7) L Urine Color Pale yellow Urine Appearance Clear Urine pH 7 (4.5-8.0) Urine Specific [place] 1.005 (1.005-1.035) Urine Protein 3+ (NEGATIVE) H Urine Glucose (UA) Negative (NEGATIVE) Urine Ketones Negative (NEGATIVE) Urine Occult Blood 1+ (NEGATIVE) H Urine Nitrite Negative (NEGATIVE) Urine Bilirubin Negative (NEGATIVE) Urine Urobilinogen 1 MG/DL (0.0-1.0) H Urine Leukocyte Esterase Negative (NEGATIVE) Urine RBC 2-4 /HPF (0 - 2) H Urine WBC 0-2 /HPF (0 - 2) Urine Squamous Epithelial Cells Few /LPF (NONE/OCC) Urine Bacteria Few /HPF (NONE) Height (Feet): 5 Height (Inches): 6.00 Weight (Pounds): 160 Medications Current Medications Medications (Trade) Dose Ordered Sig/Trudy Route PRN Reason Start Time Stop Time Status Last Admin Dose Admin Acetaminophen (Tylenol) 650 mg Q4H PRN ORAL fever (temp>100.5F) 03/17/17 07:00 04/16/17 06:59 Al Hydroxide/Mg Hydroxide (Mylanta II) 30 ml Q6H PRN ORAL dyspepsia 03/17/17 07:00 04/16/17 06:59 Albuterol/ Ipratropium (Albuterol/ Ipratropium) 3 ml Q4H PRN HHN Shortness of Breath 03/17/17 07:00 03/22/17 06:59 Amlodipine Besylate (Norvasc) 2.5 mg DAILY ORAL 03/17/17 09:00 04/16/17 08:59 03/17/17 09:30 Clonidine HCl (Catapres) 0.1 mg Q4H PRN ORAL For High Blood Pressure 03/17/17 07:00 04/16/17 06:59 Clopidogrel Bisulfate (Plavix) 75 mg DAILY ORAL 03/17/17 09:00 04/16/17 08:59 03/17/17 09:30 Dextrose (Dextrose 50%) STAT PRN IV Hypoglycemia 03/17/17 07:00 04/16/17 06:59 Furosemide (Lasix) 40 mg DAILY ORAL 03/17/17 09:00 04/16/17 08:59 03/17/17 09:29 Heparin Sodium (Porcine) (Heparin 5000 units/ml) 5,000 units EVERY 12 HOURS SUBQ 03/17/17 09:00 04/16/17 08:59 03/17/17 09:38 Lorazepam (Ativan 2mg/ml 1ml) 0.5 mg Q4H PRN IV For Anxiety 03/17/17 07:00 03/24/17 06:59 Morphine Sulfate (Morphine Sulfate) 1 mg Q4H PRN IVP For Pain 7-10 03/17/17 07:00 03/24/17 06:59 Nitroglycerin (Ntg) 0.4 mg Q5M X 3 DOSES PRN SL Prn Chest Pain 03/17/17 07:00 04/16/17 06:59 Ondansetron HCl (Zofran) 4 mg Q6H PRN IVP Nausea & Vomiting 03/17/17 07:00 04/16/17 06:59 Polyethylene Glycol (Miralax) 17 gm HSPRN PRN ORAL Constipation 03/17/17 07:00 04/16/17 06:59 Quetiapine Fumarate (SEROquel) 25 mg DAILY ORAL 03/17/17 09:00 04/16/17 08:59 03/17/17 09:27 Temazepam (Restoril) 15 mg HSPRN PRN ORAL Insomnia 03/17/17 07:00 03/24/17 06:59 Valproic Acid (Depakene) 250 mg TID ORAL 03/17/17 09:00 04/16/17 08:59 03/17/17 09:29 Assessment/Plan Problem List: (1) Acute encephalopathy ICD Codes: G93.40 - Encephalopathy, unspecified SNOMED: 2134758 (2) Atrial fibrillation ICD Codes: I48.91 - Unspecified atrial fibrillation SNOMED: 13545359 (3) Cardiomyopathy ICD Codes: I42.9 - Cardiomyopathy, unspecified SNOMED: 61484855 (4) Hypertension ICD Codes: I10 - Essential (primary) hypertension SNOMED: 22335919 (5) dementia vascular Assessment/Plan telemetry monitoring check pacemaker pt/ot adjust cardiac meds dvt prophylaxis. MARÍA JI Mar 17, 2017 12:26
--- NOTE | 2017-03-17 15:09 | Neurology Progress Note ---
Objective Physical Exam Last Vital Signs Date Time Temp Pulse Resp B/P (MAP) Pulse Ox O2 Delivery O2 Flow Rate FiO2 03/17/17 12:00 100 03/17/17 09:30 153/81 03/17/17 08:00 97.9 20 100 03/17/17 07:13 Room Air Laboratory Tests Test 03/17/17 02:00 03/17/17 05:29 White Blood Count 6.0 K/UL (4.8-10.8) Red Blood Count 4.31 M/UL (4.20-5.40) Hemoglobin 12.9 G/DL (12.0-16.0) Hematocrit 41.4 % (37.0-47.0) Mean Corpuscular Volume 96 FL (80-99) Mean Corpuscular Hemoglobin 29.9 PG (27.0-31.0) Mean Corpuscular Hemoglobin Concent 31.2 G/DL (32.0-36.0) L Red Cell Distribution Width 14.4 % (11.6-14.8) Platelet Count 228 K/UL (150-450) Mean Platelet Volume 6.7 FL (6.5-10.1) Neutrophils (%) (Auto) 72.4 % (45.0-75.0) Lymphocytes (%) (Auto) 17.5 % (20.0-45.0) L Monocytes (%) (Auto) 7.8 % (1.0-10.0) Eosinophils (%) (Auto) 1.2 % (0.0-3.0) Basophils (%) (Auto) 1.2 % (0.0-2.0) Prothrombin Time 10.6 SEC (9.30-11.50) Prothromb Time International Ratio 1.0 (0.9-1.1) Activated Partial Thromboplast Time 28 SEC (23-33) Sodium Level 139 MMOL/L (136-145) Potassium Level 4.7 MMOL/L (3.5-5.1) Chloride Level 104 MMOL/L (98-107) Carbon Dioxide Level 28 MMOL/L (21-32) Anion Gap 7 mmol/L (5-15) Blood Urea Nitrogen 14 mg/dL (7-18) Creatinine 2.0 MG/DL (0.55-1.30) H Estimat Glomerular Filtration Rate mL/min (>60) Glucose Level 108 MG/DL (74-106) H Calcium Level 9.1 MG/DL (8.5-10.1) Total Bilirubin 0.5 MG/DL (0.2-1.0) Aspartate Amino Transf (AST/SGOT) 42 U/L (15-37) H Alanine Aminotransferase (ALT/SGPT) 10 U/L (12-78) L Alkaline Phosphatase 52 U/L (46-116) Troponin I 0.008 ng/mL (0.000-0.056) Pro-B-Type Natriuretic Peptide 4754 pg/mL (0-125) H Total Protein 7.8 G/DL (6.4-8.2) Albumin 3.1 G/DL (3.4-5.0) L Globulin 4.7 g/dL Albumin/Globulin Ratio 0.7 (1.0-2.7) L Urine Color Pale yellow Urine Appearance Clear Urine pH 7 (4.5-8.0) Urine Specific [place] 1.005 (1.005-1.035) Urine Protein 3+ (NEGATIVE) H Urine Glucose (UA) Negative (NEGATIVE) Urine Ketones Negative (NEGATIVE) Urine Occult Blood 1+ (NEGATIVE) H Urine Nitrite Negative (NEGATIVE) Urine Bilirubin Negative (NEGATIVE) Urine Urobilinogen 1 MG/DL (0.0-1.0) H Urine Leukocyte Esterase Negative (NEGATIVE) Urine RBC 2-4 /HPF (0 - 2) H Urine WBC 0-2 /HPF (0 - 2) Urine Squamous Epithelial Cells Few /LPF (NONE/OCC) Urine Bacteria Few /HPF (NONE) Impression/Recommendations Problems: (1) Parkinsonian syndrome (2) dementia vascular (3) Pacemaker (4) Atrial fibrillation Status: unchanged Recommendations # [id number] ALEJANRDA CHERY Mar 17, 2017 15:09
[2017-03-17] MEDS: Sinemet 25/100 tab ORAL SCH ×2 (15:15→17:34)
[2017-03-17 16:00] VITALS: BP 142/71
--- NOTE | 2017-03-17 18:11 | Cardiology Progress Note ---
Assessment/Plan Assessment/Plan syncope (resolved when placed on [facility] floor by dtr) cad s/p rca pci ppi perm afib on anticoag wih xarelto adn hr control dementia renal insuf new since 2013 mode diastolic dysfunction orthostatic vilws pacer interrogation may need soem ivf [id number] Objective Last 24 Hour Vital Signs Date Time Temp Pulse Resp B/P (MAP) Pulse Ox O2 Delivery O2 Flow Rate FiO2 03/17/17 16:56 87 03/17/17 16:00 97.2 86 18 142/71 99 Room Air 03/17/17 16:00 86 89 93 03/17/17 12:00 100 03/17/17 09:30 84 153/81 03/17/17 08:00 97.9 84 20 153/81 100 03/17/17 07:26 125 03/17/17 07:13 97.9 100 21 155/81 99 Room Air 03/17/17 07:00 101 03/17/17 06:22 96.8 73 13 144/70 100 Room Air 111 03/17/17 05:30 96.8 111 13 144/70 100 Room Air 03/17/17 02:18 96.8 73 13 115/60 100 Room Air 03/17/17 01:18 97.3 94 16 151/69 94 Room Air Intake and Output 03/17/17 03/18/17 19:00 07:00 Intake Total 120 ml Output Total 300 ml Balance -180 ml Intake Oral 120 ml Output Urine Total 300 ml Laboratory Tests Test 03/17/17 02:00 03/17/17 05:29 White Blood Count 6.0 K/UL (4.8-10.8) Red Blood Count 4.31 M/UL (4.20-5.40) Hemoglobin 12.9 G/DL (12.0-16.0) Hematocrit 41.4 % (37.0-47.0) Mean Corpuscular Volume 96 FL (80-99) Mean Corpuscular Hemoglobin 29.9 PG (27.0-31.0) Mean Corpuscular Hemoglobin Concent 31.2 G/DL (32.0-36.0) L Red Cell Distribution Width 14.4 % (11.6-14.8) Platelet Count 228 K/UL (150-450) Mean Platelet Volume 6.7 FL (6.5-10.1) Neutrophils (%) (Auto) 72.4 % (45.0-75.0) Lymphocytes (%) (Auto) 17.5 % (20.0-45.0) L Monocytes (%) (Auto) 7.8 % (1.0-10.0) Eosinophils (%) (Auto) 1.2 % (0.0-3.0) Basophils (%) (Auto) 1.2 % (0.0-2.0) Prothrombin Time 10.6 SEC (9.30-11.50) Prothromb Time International Ratio 1.0 (0.9-1.1) Activated Partial Thromboplast Time 28 SEC (23-33) Sodium Level 139 MMOL/L (136-145) Potassium Level 4.7 MMOL/L (3.5-5.1) Chloride Level 104 MMOL/L (98-107) Carbon Dioxide Level 28 MMOL/L (21-32) Anion Gap 7 mmol/L (5-15) Blood Urea Nitrogen 14 mg/dL (7-18) Creatinine 2.0 MG/DL (0.55-1.30) H Estimat Glomerular Filtration Rate mL/min (>60) Glucose Level 108 MG/DL (74-106) H Calcium Level 9.1 MG/DL (8.5-10.1) Total Bilirubin 0.5 MG/DL (0.2-1.0) Aspartate Amino Transf (AST/SGOT) 42 U/L (15-37) H Alanine Aminotransferase (ALT/SGPT) 10 U/L (12-78) L Alkaline Phosphatase 52 U/L (46-116) Troponin I 0.008 ng/mL (0.000-0.056) Pro-B-Type Natriuretic Peptide 4754 pg/mL (0-125) H Total Protein 7.8 G/DL (6.4-8.2) Albumin 3.1 G/DL (3.4-5.0) L Globulin 4.7 g/dL Albumin/Globulin Ratio 0.7 (1.0-2.7) L Urine Color Pale yellow Urine Appearance Clear Urine pH 7 (4.5-8.0) Urine Specific [place] 1.005 (1.005-1.035) Urine Protein 3+ (NEGATIVE) H Urine Glucose (UA) Negative (NEGATIVE) Urine Ketones Negative (NEGATIVE) Urine Occult Blood 1+ (NEGATIVE) H Urine Nitrite Negative (NEGATIVE) Urine Bilirubin Negative (NEGATIVE) Urine Urobilinogen 1 MG/DL (0.0-1.0) H Urine Leukocyte Esterase Negative (NEGATIVE) Urine RBC 2-4 /HPF (0 - 2) H Urine WBC 0-2 /HPF (0 - 2) Urine Squamous Epithelial Cells Few /LPF (NONE/OCC) Urine Bacteria Few /HPF (NONE) Valproic Acid (Depakene) Level 3 MCG/ML (50-100) L MARIE MARQUES Mar 17, 2017 18:11
--- NOTE | 2017-03-17 19:32 | History & Physical ---
History and Physical History & Physicial Dictated for Int Med-Dr Engel no. [id number] MAYANK PATEL Mar 17, 2017 19:32
[2017-03-17 20:00] VITALS: BP 131/51
--- NOTE | 2017-03-17 23:00 | Consultation ---
History of Present Illness General Chief Complaint: Syncope Referring physician: Dr. Engel Present Illness HPI 81-year-old female with pmhx of HTN, atrial fibrillation on Eliquis. presented to [facility] – [place] with CC of syncopal episode. She was was on a chair slumped over, did not hit the ground, no head trauma. the pt was confused initially however s able to participate and answer the questions. Allergies: Coded Allergies: No Known Allergies (Unverified , 10/22/13) Medication History Scheduled Amlodipine Besylate (Norvasc), 2.5 MG ORAL DAILY Aspirin* (Ecotrin*), 81 MG ORAL DAILY, (Reported) Clopidogrel Bisulfate* (Plavix*), 75 MG ORAL DAILY, (Reported) Furosemide* (Lasix*), 40 MG ORAL DAILY, (Reported) Lansoprazole* (Prevacid*), 30 MG ORAL BID, (Reported) Lansoprazole* (Prevacid*), 30 MG ORAL DAILY, (Reported) Metoprolol Succinate* (Metoprolol Succinate*), 100 MG ORAL DAILY, (Reported) Metoprolol Succinate* (Metoprolol Succinate*), 100 MG ORAL DAILY, (Reported) Metoprolol Tartrate* (Metoprolol Tartrate*), 100 MG ORAL Q12HR [place]-3 Acid Ethyl Esters (Lovaza), 1 GM ORAL DAILY, (Reported) Potassium Chloride (Klor-Con), 8.8 MEQ ORAL DAILY, (Reported) Quetiapine Fumarate* (Seroquel*), 25 MG ORAL DAILY Quetiapine Fumarate* (Seroquel*), 100 MG ORAL DAILY Ranitidine HCl (Ranitidine HCl), 150 MG PO BID, (Reported) Rivaroxaban (Xarelto*), 15 MG ORAL DAILY, (Reported) Rosuvastatin Calcium* (Crestor*), 40 MG ORAL DAILY, (Reported) Rosuvastatin Calcium* (Crestor*), 20 MG ORAL DAILY, (Reported) Temazepam (Temazepam*), 15 MG ORAL BEDTIME, (Reported) Valproic Acid (Depakene), 250 MG ORAL TID, (Reported) Valproic Acid (Depakene), 250 MG ORAL TID, (Reported) Valsartan (Diovan), 80 MG ORAL BID, (Reported) Valsartan (Diovan), 80 MG ORAL BID, (Reported) Scheduled PRN Temazepam* (Restoril*), 15 MG ORAL BEDTIME PRN for Insomnia, (Reported) Miscellaneous Medications Calcium Carbonate/Vitamin D3 (Calcium + Vitamin D Tablet), 1 EACH PO, (Reported) Unable to Obtain Medications (Unable To Obtain Meds), (Reported) Patient History Healthcare decision maker [place] Resuscitation status Full Code Advanced Directive on File Physical Exam Last 24 Hour Vital Signs Date Time Temp Pulse Resp B/P (MAP) Pulse Ox O2 Delivery O2 Flow Rate FiO2 03/17/17 21:33 88 18 Room Air 03/17/17 20:00 98.0 65 20 131/51 100 Room Air 03/17/17 19:01 111 03/17/17 16:56 87 03/17/17 16:00 97.2 86 18 142/71 99 Room Air 03/17/17 16:00 86 89 93 03/17/17 12:00 100 03/17/17 09:30 84 153/81 03/17/17 08:00 97.9 84 20 153/81 100 03/17/17 07:26 125 03/17/17 07:13 97.9 100 21 155/81 99 Room Air 03/17/17 07:00 101 03/17/17 06:22 96.8 73 13 144/70 100 Room Air 111 03/17/17 05:30 96.8 111 13 144/70 100 Room Air 03/17/17 02:18 96.8 73 13 115/60 100 Room Air 03/17/17 01:18 97.3 94 16 151/69 94 Room Air Intake and Output 03/17/17 03/18/17 19:00 07:00 Intake Total 360 ml Output Total 300 ml Balance 60 ml Intake Oral 360 ml Output Urine Total 300 ml Laboratory Tests Test 03/17/17 02:00 03/17/17 05:29 White Blood Count 6.0 K/UL (4.8-10.8) Red Blood Count 4.31 M/UL (4.20-5.40) Hemoglobin 12.9 G/DL (12.0-16.0) Hematocrit 41.4 % (37.0-47.0) Mean Corpuscular Volume 96 FL (80-99) Mean Corpuscular Hemoglobin 29.9 PG (27.0-31.0) Mean Corpuscular Hemoglobin Concent 31.2 G/DL (32.0-36.0) L Red Cell Distribution Width 14.4 % (11.6-14.8) Platelet Count 228 K/UL (150-450) Mean Platelet Volume 6.7 FL (6.5-10.1) Neutrophils (%) (Auto) 72.4 % (45.0-75.0) Lymphocytes (%) (Auto) 17.5 % (20.0-45.0) L Monocytes (%) (Auto) 7.8 % (1.0-10.0) Eosinophils (%) (Auto) 1.2 % (0.0-3.0) Basophils (%) (Auto) 1.2 % (0.0-2.0) Prothrombin Time 10.6 SEC (9.30-11.50) Prothromb Time International Ratio 1.0 (0.9-1.1) Activated Partial Thromboplast Time 28 SEC (23-33) Sodium Level 139 MMOL/L (136-145) Potassium Level 4.7 MMOL/L (3.5-5.1) Chloride Level 104 MMOL/L (98-107) Carbon Dioxide Level 28 MMOL/L (21-32) Anion Gap 7 mmol/L (5-15) Blood Urea Nitrogen 14 mg/dL (7-18) Creatinine 2.0 MG/DL (0.55-1.30) H Estimat Glomerular Filtration Rate mL/min (>60) Glucose Level 108 MG/DL (74-106) H Calcium Level 9.1 MG/DL (8.5-10.1) Total Bilirubin 0.5 MG/DL (0.2-1.0) Aspartate Amino Transf (AST/SGOT) 42 U/L (15-37) H Alanine Aminotransferase (ALT/SGPT) 10 U/L (12-78) L Alkaline Phosphatase 52 U/L (46-116) Troponin I 0.008 ng/mL (0.000-0.056) Pro-B-Type Natriuretic Peptide 4754 pg/mL (0-125) H Total Protein 7.8 G/DL (6.4-8.2) Albumin 3.1 G/DL (3.4-5.0) L Globulin 4.7 g/dL Albumin/Globulin Ratio 0.7 (1.0-2.7) L Urine Color Pale yellow Urine Appearance Clear Urine pH 7 (4.5-8.0) Urine Specific [place] 1.005 (1.005-1.035) Urine Protein 3+ (NEGATIVE) H Urine Glucose (UA) Negative (NEGATIVE) Urine Ketones Negative (NEGATIVE) Urine Occult Blood 1+ (NEGATIVE) H Urine Nitrite Negative (NEGATIVE) Urine Bilirubin Negative (NEGATIVE) Urine Urobilinogen 1 MG/DL (0.0-1.0) H Urine Leukocyte Esterase Negative (NEGATIVE) Urine RBC 2-4 /HPF (0 - 2) H Urine WBC 0-2 /HPF (0 - 2) Urine Squamous Epithelial Cells Few /LPF (NONE/OCC) Urine Bacteria Few /HPF (NONE) Valproic Acid (Depakene) Level 3 MCG/ML (50-100) L Height (Feet): 5 Height (Inches): 6.00 Weight (Pounds): 160 Medications Current Medications Medications (Trade) Dose Ordered Sig/Trudy Route PRN Reason Start Time Stop Time Status Last Admin Dose Admin Acetaminophen (Tylenol) 650 mg Q4H PRN ORAL fever (temp>100.5F) 03/17/17 07:00 04/16/17 06:59 Al Hydroxide/Mg Hydroxide (Mylanta II) 30 ml Q6H PRN ORAL dyspepsia 03/17/17 07:00 04/16/17 06:59 Albuterol/ Ipratropium (Albuterol/ Ipratropium) 3 ml Q4H PRN HHN Shortness of Breath 03/17/17 07:00 03/22/17 06:59 Amlodipine Besylate (Norvasc) 2.5 mg DAILY ORAL 03/17/17 09:00 04/16/17 08:59 03/17/17 09:30 Apixaban (Eliquis) 2.5 mg BID ORAL 03/18/17 09:00 04/17/17 08:59 Aspirin (Ecotrin) 81 mg DAILY ORAL 03/18/17 09:00 04/17/17 08:59 Carbidopa/Levodopa (Sinemet 25/100) 0.5 ea THREE TIMES A DAY ORAL 03/17/17 15:15 04/16/17 15:14 03/17/17 17:34 Clonidine HCl (Catapres) 0.1 mg Q4H PRN ORAL For High Blood Pressure 03/17/17 07:00 04/16/17 06:59 Dextrose (Dextrose 50%) STAT PRN IV Hypoglycemia 03/17/17 07:00 04/16/17 06:59 Heparin Sodium (Porcine) (Heparin 5000 units/ml) 5,000 units EVERY 12 HOURS SUBQ 03/17/17 09:00 03/18/17 00:00 03/17/17 22:22 Lorazepam (Ativan 2mg/ml 1ml) 0.5 mg Q4H PRN IV For Anxiety 03/17/17 07:00 03/24/17 06:59 Metoprolol Succinate (Toprol XL) 50 mg DAILY ORAL 03/18/17 09:00 04/17/17 08:59 Morphine Sulfate (Morphine Sulfate) 1 mg Q4H PRN IVP For Pain 7-10 03/17/17 07:00 03/24/17 06:59 Nitroglycerin (Ntg) 0.4 mg Q5M X 3 DOSES PRN SL Prn Chest Pain 03/17/17 07:00 04/16/17 06:59 Ondansetron HCl (Zofran) 4 mg Q6H PRN IVP Nausea & Vomiting 03/17/17 07:00 04/16/17 06:59 Polyethylene Glycol (Miralax) 17 gm HSPRN PRN ORAL Constipation 03/17/17 07:00 04/16/17 06:59 Temazepam (Restoril) 15 mg HSPRN PRN ORAL Insomnia 03/17/17 07:00 03/24/17 06:59 Valproic Acid (Depakene) 250 mg TID ORAL 03/17/17 09:00 04/16/17 08:59 03/17/17 17:35 Assessment/Plan Status: stable Assessment/Plan Delirium Seizure anxiety dc seroquel cont Lindsay Grimaldo M.D. Mar 17, 2017 23:00
--- NOTE | 2017-03-18 01:15 | Consultation ---
DATE OF CONSULTATION: 03/17/2017 NEUROLOGICAL CONSULTATION CONSULTING PHYSICIAN: Byron Gan M.D. REQUESTING PHYSICIAN: Sim Engel M.D. HISTORY OF PRESENT ILLNESS: This is an 81-year-old female with history of transient loss of consciousness, memory loss, and gait abnormality. Paramedics were called to the scene after the patient was found by her daughter lying unresponsive in the living room chair. She heard a noise in the living room, appeared that the patient did not fall. She was just sitting in a chair and daughter was able to bring her down to the ground where she became fully awake. She also reported that the patient has dementia at baseline. Her vital signs in the field included blood pressure 153/63, heart rate of 77, and respirations of 16. On arrival to the hospital, her vital signs remained stable. EKG, normal sinus rhythm with evidence of atrial fibrillation. Chest x-ray revealed pacemaker on the left chest and cardiomegaly. Her lab work included unremarkable CBC study. Coagulation panel normal. Urinalysis, 3+ protein. Chemistry panel revealed creatinine 2.0 and glucose 108. Elevated AST of 42. BNP of 4754, but normal troponin. Albumin 3.1. Imaging studies included chest x-ray, cardiomegaly with mild pulmonary vascular congestion with evidence of pacemaker. PAST MEDICAL HISTORY: The patient has a history of chronic atrial fibrillation, CHF, coronary atherosclerosis, hyperlipidemia, hypothyroidism, pacemaker and stent was placed in 2013 and in 2011 chronic anemia, hypertension, and GERD. MEDICATIONS: Treatment prior to admission included Plavix, aspirin, amlodipine, Prevacid, metoprolol, Seroquel, ranitidine, Xarelto with Rocephin, Crestor, temazepam, valproic acid 250 mg t.i.d., and . ALLERGIES: None reported. SOCIAL HISTORY: Lives with her daughter. The patient indicates she is able to feed herself and change dressing. FAMILY HISTORY: Unavailable. REVIEW OF SYMPTOMS: The patient indicates she is feeling fairly well and she is unaware why she is in the hospital. Denying headache or dizziness. No chest pain. No palpitations. No respiratory problems. No abdominal pain or discomfort. She is stating that she has "pretty good memory." PHYSICAL EXAMINATION: GENERAL: A well-developed, well-nourished, elderly female, not in acute distress, lying comfortably in bed. VITAL SIGNS: Stable. Blood pressure 150/80, afebrile, and heart rate of 84. HEENT: Head, normocephalic. No evidence of trauma. Eyes, ears, and throat are clear. NECK: Supple. No meningeal signs. MUSCULOSKELETAL: Examination unremarkable. There are no deformities. Peripheral pulses 1+ and symmetric. MENTAL STATUS: The patient is alert and oriented x2. She is unaware of what year, but gave her address. She is unaware what is name of the president. She was unable to recall any of three words in three minutes, somewhat confused, but follows commands and responding coherently. CRANIAL NERVE II: Pupils both responding to light and accommodation. Extraocular movements intact. No nystagmus. CRANIAL NERVE V: Normal corneal responses. CRANIAL NERVE VII: No facial asymmetry. There is a poor facial expression. Masked face. CRANIAL NERVES VIII: Normal hearing. CRANIAL NERVES IX THROUGH XII: Within normal limits. MOTOR EXAMINATION: Revealed diffuse rigidity. There is bradykinesia. No involuntary movement. Deep tendon reflexes 1+ bilaterally and symmetric. Plantar responses flexor. SENSORY EXAMINATION: Normal to pin stimulation. GAIT: The patient was able to stand up with full assist and she was very unsteady, pulling backwards, wide-based. She did some shuffling gait with full assist. IMPRESSION: 1. Parkinson syndrome. 2. Senile dementia. 3. Syncopal episode, probably vasovagal. 4. Atrial fibrillation, on anticoagulation. 5. Pacemaker in place. RECOMMENDATION: 1. Avoid atypical antipsychotics. 2. CAT scan of the brain. 3. Start on Sinemet 25/100 mg half a tablet t.i.d. if tolerated. 4. Check orthostatic blood pressure. 5. Get PT, OT, and mobility protocol. 6. The patient has a high risk of fall and use of Eliquis for anticoagulation should be again reviewed, especially when given in the setting of two antiplatelets. Thank you for allowing me to see this interesting patient in neurological consultation. Byron Gan M.D. DR: Julita JOB#: [id number] CC:
[2017-03-18 04:14] VITALS: BP 133/63
--- NOTE | 2017-03-18 04:30 | Consultation ---
DATE OF CONSULTATION: 03/17/2017 CARDIOLOGY CONSULTATION CONSULTING PHYSICIAN: Ponce Toams M.D. REFERRING PHYSICIAN: Sim Engel M.D. REASON FOR REFERRAL: Syncopal episode. HISTORY OF PRESENT ILLNESS: This is a very unfortunate "poor historian," elderly female, who presented to the hospital because of a syncopal episode. Guest Service Team Leader run sheet from the patient on the floor at home, complained of syncope, 911 was called by daughter who found her mother unresponsive in the living room chair after hearing a noise in the living room. Daughter states that she did not fall, but was just sitting in a chair. The daughter brought the patient to the ground to where the patient became responsive again. On EMS arrival, daughter stated the patient was acting normal. History of dementia and no complaints of any pain. No neurological deficit was noted. No chest pain. No shortness of breath. The patient was transferred to the emergency room at [facility]. Guest Service Team Leader run sheet indicates when the patient was found, she had a blood pressure of 153/57 with a heart rate of 77 and blood pressure remained in that range on the patient arrival to the ER here at [facility]. The patient is a very poor historian and is really unable to provide any meaningful history. Informations from the patient's [facility] chart was obtained. PAST MEDICAL HISTORY: The patient has a following history of iron deficiency of anemia, carotid stenosis, hyperlipidemia, essential hypertension, gastroesophageal reflux disease, osteoarthritis, status post coronary artery stenting, anxiety, paraproteinemia, asthma, paranoia, psychosis, cardiomyopathy with severe diastolic dysfunction and systolic dysfunction, iron deficiency. She is status post hysterectomy, appendectomy, tonsillectomy, joint replacement, and coronary intervention with drug-eluting stent placement in right coronary artery in 2012. The patient does have a history of atrial fibrillation on prior occasions. MEDIATIONS: The patient's medications at home are listed as aspirin 325 mg, metoprolol 100 mg daily, Seroquel, Zantac, Xarelto 15 mg daily, temazepam, valproic acid as listed in the [facility]'s chart. SOCIAL HISTORY: She apparently used to have alcoholic consumption. No tobacco or illegal drugs. Apparently, she lives at home. She is . REVIEW OF SYSTEMS: GASTROINTESTINAL: She denies. GENITOURINARY: She denies. PULMONARY: She denies. CONSTITUTIONAL: Negative. NEUROLOGIC: She denies. PHYSICAL EXAMINATION: GENERAL: Shows to be elderly female, confused, responsive, rather slow to mentate. NECK: Supple. No jugular venous distention. LUNGS: Clear to auscultation and percussion. CARDIAC: Irregularly irregular. No heaves, thrills, gallops, or rubs are noted. ABDOMEN: Soft and nontender. Positive bowel sounds. EXTREMITIES: There is no clubbing, cyanosis, nor is there any edema. NEUROLOGICAL: She is awake, alert, responsive, and apparently in no distress. LABORATORY AND DIAGNOSTIC DATA: White count 6, hemoglobin 12.9, and platelet count of 228. Sodium is 139, potassium 4.7, chloride 104, bicarbonate 20, BUN 14, creatinine 2.0, and glucose of 108. Troponin 0.08. ProBNP of 4700. AST and ALT 42 and 10. Albumin of 3.1, INR 1.0, and PTT of 26. Urinalysis 2 to 4 rbc's, 0 to 2 wbc's. Her electrocardiogram shows atrial fibrillation with ventricular response being controlled, left axis deviation, really no significant ST-T wave abnormalities compared to 2014's EKG, really is unchanged. ASSESSMENT AND PLAN: 1. Syncopal episode. 2. History of atrial fibrillation, probably permanent. 3. History of diastolic dysfunction and mild systolic dysfunction previously. 4. Peripheral vascular disease. 5. Coronary artery disease, status post drug-eluting stent placed in the right coronary artery previously. 6. Renal insufficiency, new compared to 2014 labs from [facility]. 7. Moderate diastolic dysfunction. This patient appears to have had atrial fibrillation on chronic basis. She seems to be in atrial fibrillation. She is to be continued on anticoagulation with Xarelto. Cardiac enzymes will be checked as a matter of routine. Echocardiogram has already been performed. The ejection fraction here is estimated at 55% on preliminary report. She does have evidence of significant diastolic dysfunction on the echocardiogram. IVC is 1.8 cm with physiologic collapse. She does have a permanent pacemaker on the left side of her chest, appears to be single-chamber, likely secondary to her permanent atrial fibrillation status she has been having. Pacemaker interrogation to evaluate its function. Orthostatic vitals will be ordered. It is of note that according to caregivers homecare run sheet, the patient did wake up when she was placed down. It is likely that she may have a component of orthostasis. Those will be checked and hydration will be provided as necessary. Ponce Tomas M.D. DR: Darryl JOB#: [id number] CC:
--- NOTE | 2017-03-18 04:45 | History and Physical Report ---
DATE OF ADMISSION: 03/17/2017 CHIEF COMPLAINT: The patient is an 81-year-old female, who presents with chief complaint of syncopal episode. HISTORY OF PRESENT ILLNESS: The patient was admitted to [facility] in December 2016. Please see history and physical and discharge summary dictated at that time. The patient lives at home with her daughter. The patient's daughter heard a thump. The patient's daughter found that the patient is thumped over in the chair. The patient did not fall to the ground. The patient presented to [place] emergency room. The patient is admitted with syncopal episode. PAST MEDICAL HISTORY: Significant for: 1. Atrial fibrillation, on Xarelto. 2. Hypertension. 3. History of psychiatric disorder. PAST SURGICAL HISTORY: Significant for pacemaker implantation. CURRENT MEDICATIONS: 1. Amlodipine 2.5 mg p.o. daily. 2. Aspirin 81 mg p.o. daily. 3. Calcium carbonate one tablet p.o. daily. 4. Plavix 75 mg one tablet p.o. daily. 5. Lasix 40 mg p.o. daily. 6. Prevacid 30 mg p.o. twice daily. 7. Metoprolol 100 mg p.o. daily. 8. Potassium chloride 20 mEq p.o. daily. 9. Seroquel 25 mg p.o. daily and 100 mg p.o. nightly. 10. Zantac 150 mg p.o. twice daily. 11. Xarelto 15 mg p.o. daily. 12. Crestor 40 mg p.o. daily. 13. Restoril 15 mg p.o. nighty. 14. Depakote 250 mg p.o. three times daily. 15. Diovan 80 mg p.o. twice daily. ALLERGIES: No known drug allergies. SOCIAL HISTORY: The patient lives with her adult daughter. The patient denies tobacco or alcohol use. REVIEW OF SYSTEMS: CONSTITUTIONAL: The patient denies weight loss or weight gain. The patient denies fevers or chills. HEENT: The patient denies ear or throat pain. The patient denies headache. CARDIOVASCULAR: The patient denies palpitations or chest pain. CHEST: The patient denies wheeze or shortness of breath. ABDOMEN: The patient denies nausea, vomiting, diarrhea, or constipation. GENITOURINARY: The patient denies dysuria or increased frequency of urination. NEUROMUSCULAR: The patient complains of syncopal episode as above. The patient denies generalized weakness. PHYSICAL EXAMINATION: VITAL SIGNS: Temperature 97.9 degrees, respirations 20, pulse 84, blood pressure 152/81. GENERAL: The patient is a well-developed and well-nourished female, in no apparent distress. HEENT: Eyes, pupils equal responsive to light and accommodation. Extraocular movements are intact. NECK: Supple. No lymphadenopathy. CHEST: Lungs are clear to auscultation bilaterally without wheezes or rales. CARDIOVASCULAR: Regular rhythm and rate S1, S2 normal without murmurs, rubs, or gallops. ABDOMEN: Soft, nontender, and nondistended. Positive bowel sounds. No evidence of hepatosplenomegaly. Currently, no rebound or guarding noted. EXTREMITIES: Negative for clubbing, cyanosis, or edema. RECTAL/GENITAL: Refused. NEUROLOGIC: Cranial nerves II through XII are grossly intact without focal deficits. Motor strength is 5/5 bilaterally. Deep tendon reflexes are 2+ plantar. LABORATORY STUDIES: WBC 6.0, hemoglobin 12.9, hematocrit 41.4 platelets 228,000 .sodium 139, potassium 4.7, chloride 104, CO2 28, BUN 14, creatinine 2.0, glucose 108. A chest x-ray revealed cardiomegaly with mild pulmonary vascular congestion. ASSESSMENT: This is an 81-year-old female. 1. Syncopal episode. 2. Renal insufficiency, new onset. 3. Atrial fibrillation. 4. Hypertension. 5. Pacemaker in situ. TREATMENT: 1. Syncopal episode. A Neurology consultation with Dr. Gan. A Cardiology consultation has been obtained with Dr. Ponce Tomas. The patient has a history of atrial fibrillation with rapid ventricular rate. The patient is currently on telemetry to monitor heart rate. We will follow recommendations of Neurology and Cardiology. 2. Renal insufficiency. This is new from the December 2016 admission. The patient is currently receiving intravenous fluids. A Nephrology consultation will be obtained with Dr. Biswas. 3. Hypertension. Continue metoprolol as above. 4. Atrial fibrillation. As above, a Cardiology consultation will be obtained with Dr. Ponce Tomas. A pacemaker check is pending. The patient will remain on Eliquis. We will follow recommendations of Cardiology. 5. Hypertension. Continue metoprolol as above. 6. Pacemaker in situ. A pacemaker check is pending. Deng Loza M.D. DR: Vernon JOB#: [id number] CC:
--- NOTE | 2017-03-18 07:46 | Pulmonology Progress Note ---
Assessment/Plan Assessment/Plan ASSESSMENT Syncopal episode, probably vasovagal acute encephalopathy on chronic dementia Permanent atrial fibrillation HTN Pacemaker Parkinson syndrome. Senile vascular dementia. Moderate to severe pulmonary HTN PLAN OF CARE Tele Cardio and neuro follow pacemaker interrogation Carotid Duplex CT head orthostatic VS, last ECHO with pEF 55% and RVSP of 58 c/w moderate t severe pulmonary HTN Rate control with BB a/coagulation with Eiquis BP management with CCB and Clonidine prn continue Plavix, Lasix avoid atypical antipsychotic neuro started on Sinemet replace K O2 HHN prn Pain management bowel regimen fall precautions PT/OT case discussed and evaluated by supervising physician Subjective Allergies: Coded Allergies: No Known Allergies (Unverified , 10/22/13) Subjective denies chest pain, SOB afebrile no signs of respiratory distress K-3.3 episode of A fib with RVR currently rate controlled, remains in A fib Objective Last 24 Hour Vital Signs Date Time Temp Pulse Resp B/P (MAP) Pulse Ox O2 Delivery O2 Flow Rate FiO2 03/18/17 04:14 97.0 77 20 133/63 97 Room Air 03/18/17 03:41 97 03/17/17 23:42 82 03/17/17 21:33 88 18 Room Air 03/17/17 20:00 98.0 65 20 131/51 100 Room Air 03/17/17 19:01 111 03/17/17 16:56 87 03/17/17 16:00 97.2 86 18 142/71 99 Room Air 03/17/17 16:00 86 89 93 03/17/17 12:00 100 03/17/17 09:30 84 153/81 03/17/17 08:00 97.9 84 20 153/81 100 General Appearance: no acute distress, other - awake, alert, responsive HEENT: normocephalic, atraumatic, anicteric Respiratory/Chest: lungs clear, no accessory muscle use Cardiovascular: normal rate, no JVD, irregularly irregular - A fib on tele Abdomen: normal bowel sounds, soft, non tender, non distended Extremities: no edema, pedal pulses normal Neurologic/Psychiatric: alert, responsive Musculoskeletal: atrophy - BLE Current Medications Medications (Trade) Dose Ordered Sig/Trudy Route PRN Reason Start Time Stop Time Status Last Admin Dose Admin Acetaminophen (Tylenol) 650 mg Q4H PRN ORAL fever (temp>100.5F) 03/17/17 07:00 04/16/17 06:59 Al Hydroxide/Mg Hydroxide (Mylanta II) 30 ml Q6H PRN ORAL dyspepsia 03/17/17 07:00 04/16/17 06:59 Albuterol/ Ipratropium (Albuterol/ Ipratropium) 3 ml Q4H PRN HHN Shortness of Breath 03/17/17 07:00 03/22/17 06:59 Amlodipine Besylate (Norvasc) 2.5 mg DAILY ORAL 03/17/17 09:00 04/16/17 08:59 03/17/17 09:30 Apixaban (Eliquis) 2.5 mg BID ORAL 03/18/17 09:00 04/17/17 08:59 Aspirin (Ecotrin) 81 mg DAILY ORAL 03/18/17 09:00 04/17/17 08:59 Carbidopa/Levodopa (Sinemet 25/100) 0.5 ea THREE TIMES A DAY ORAL 03/17/17 15:15 04/16/17 15:14 03/17/17 17:34 Clonidine HCl (Catapres) 0.1 mg Q4H PRN ORAL For High Blood Pressure 03/17/17 07:00 04/16/17 06:59 Dextrose (Dextrose 50%) STAT PRN IV Hypoglycemia 03/17/17 07:00 04/16/17 06:59 Lorazepam (Ativan 2mg/ml 1ml) 0.5 mg Q4H PRN IV For Anxiety 03/17/17 07:00 03/24/17 06:59 Metoprolol Succinate (Toprol XL) 50 mg DAILY ORAL 03/18/17 09:00 04/17/17 08:59 Morphine Sulfate (Morphine Sulfate) 1 mg Q4H PRN IVP For Pain 7-10 03/17/17 07:00 03/24/17 06:59 Nitroglycerin (Ntg) 0.4 mg Q5M X 3 DOSES PRN SL Prn Chest Pain 03/17/17 07:00 04/16/17 06:59 Ondansetron HCl (Zofran) 4 mg Q6H PRN IVP Nausea & Vomiting 03/17/17 07:00 04/16/17 06:59 Polyethylene Glycol (Miralax) 17 gm HSPRN PRN ORAL Constipation 03/17/17 07:00 04/16/17 06:59 Temazepam (Restoril) 15 mg HSPRN PRN ORAL Insomnia 03/17/17 07:00 03/24/17 06:59 Valproic Acid (Depakene) 250 mg TID ORAL 03/17/17 09:00 04/16/17 08:59 03/17/17 17:35 Ahsan ([facility])Yuki NP Mar 18, 2017 07:46
[2017-03-18 08:00] VITALS: BP 135/78
[2017-03-18 08:32] LABS: BASOPHILS % (AUTO) 1.3 % (0.0-2.0); EOSINOPHILS % (AUTO) 4.4 % (0.0-3.0); LYMPHOCYTES % (AUTO) 27.5 % (20.0-45.0); MEAN CORPUSCULAR HGB CONC 32.7 G/DL (32.0-36.0); MEAN CORPUSCULAR VOLUME 98 FL (80-99); MEAN PLATELET VOLUME 7.1 FL (6.5-10.1); MONOCYTES % (AUTO) 7.7 % (1.0-10.0); PLATELET COUNT 265 K/UL (150-450); RED BLOOD COUNT 4.52 M/UL (4.20-5.40); RED CELL DISTRIBUTION WIDTH 12.9 % (11.6-14.8); WHITE BLOOD COUNT 6.6 K/UL (4.8-10.8)
[2017-03-18] MEDS: Eliquis 2.5mg tablet ORAL SCH ×2 (08:45→17:22)
[2017-03-18] MEDS: Aspirin EC 81mg tab ORAL SCH (08:45)
[2017-03-18 08:46] LABS: PROTHROMBIN TIME 10.7 SEC (9.30-11.50)
[2017-03-18] MEDS: Sinemet 25/100 tab ORAL SCH ×3 (08:46→17:22)
[2017-03-18] MEDS: Metoprolol Succinate XL 50mg tab ORAL SCH (08:47)
[2017-03-18 08:54] LABS: ALANINE AMINOTRANSFERASE 9 U/L (12-78); ALBUMIN/GLOBULIN RATIO 0.7 (1.0-2.7); ANION GAP 7 mmol/L (5-15); ASPARTATE AMINO TRANSFERASE 25 U/L (15-37); CALCIUM 8.8 MG/DL (8.5-10.1); CARBON DIOXIDE 31 MMOL/L (21-32); CHLORIDE 105 MMOL/L (98-107); CHOLESTEROL 127 MG/DL (< 200); CHOLESTEROL/HDL RATIO 2.5 (3.3-4.4); CREATININE 1.7 MG/DL (0.55-1.30); POTASSIUM 3.3 MMOL/L (3.5-5.1); SODIUM 142 MMOL/L (136-145); THYROID STIMULATING HORMONE 1.751 uiU/mL (0.358-3.740); TOTAL PROTEIN 6.8 G/DL (6.4-8.2)
[2017-03-18 12:00] VITALS: BP 135/55
[2017-03-18 15:41] VITALS: BP 129/63
--- NOTE | 2017-03-18 16:15 | Diagnostic Imaging Report ---
Indication: Reason For Exam: SYNCOPE Technique: spiral acquisitions obtained through the brain. Angled axial and coronal 5 x 5 mm slices were reconstructed. No IV contrast utilized. Radiation dose was minimized using automated exposure control Total dose length product 3086 mGycm. CTDIvol(s) 70 mGy Comparison: None FINDINGS: No acute hemorrhage or edema. No mass effect or midline shift. There is age-related enlargement of the ventricles and extra axial CSF spaces. There is periventricular deep white matter ischemic change. Normal bianchi-white differentiation. Visualized orbits are unremarkable. Visualized sinuses are unremarkable. Intact calvarium. There is a left posterior parasagittal parietal cortical calcification mastoids are clear. IMPRESSION: Chronic and age-related changes. Negative for acute intracranial bleed or mass effect Left parietal calcification, may indicate old cysticercosis or other postinflammatory change The CT scanner at [facility] is accredited by the [employer] and the scans are performed using protocols designed to limit radiation exposure to as low as reasonably achievable to attain images of sufficient resolution adequate for diagnostic evaluation
[2017-03-18] MEDS ORDERED: Flu Vaccine Quadrivalent 0.5ml IM ONE (16:30)
--- NOTE | 2017-03-18 18:03 | Internal Med Progress Note ---
Subjective Physician Name Sim Engel Attending Physician Sim Engel MD Current Medications Medications (Trade) Dose Ordered Sig/Trudy Route PRN Reason Start Time Stop Time Status Last Admin Dose Admin Acetaminophen (Tylenol) 650 mg Q4H PRN ORAL fever (temp>100.5F) 03/17/17 07:00 04/16/17 06:59 Al Hydroxide/Mg Hydroxide (Mylanta II) 30 ml Q6H PRN ORAL dyspepsia 03/17/17 07:00 04/16/17 06:59 Albuterol/ Ipratropium (Albuterol/ Ipratropium) 3 ml Q4H PRN HHN Shortness of Breath 03/17/17 07:00 03/22/17 06:59 Amlodipine Besylate (Norvasc) 2.5 mg DAILY ORAL 03/17/17 09:00 04/16/17 08:59 03/18/17 08:46 Apixaban (Eliquis) 2.5 mg BID ORAL 03/18/17 09:00 04/17/17 08:59 03/18/17 17:22 Aspirin (Ecotrin) 81 mg DAILY ORAL 03/18/17 09:00 04/17/17 08:59 03/18/17 08:45 Carbidopa/Levodopa (Sinemet 25/100) 0.5 ea THREE TIMES A DAY ORAL 03/17/17 15:15 04/16/17 15:14 03/18/17 17:22 Clonidine HCl (Catapres) 0.1 mg Q4H PRN ORAL For High Blood Pressure 03/17/17 07:00 04/16/17 06:59 Dextrose (Dextrose 50%) STAT PRN IV Hypoglycemia 03/17/17 07:00 04/16/17 06:59 Lorazepam (Ativan 2mg/ml 1ml) 0.5 mg Q4H PRN IV For Anxiety 03/17/17 07:00 03/24/17 06:59 Metoprolol Succinate (Toprol XL) 50 mg DAILY ORAL 03/18/17 09:00 04/17/17 08:59 03/18/17 08:47 Morphine Sulfate (Morphine Sulfate) 1 mg Q4H PRN IVP For Pain 7-10 03/17/17 07:00 03/24/17 06:59 Nitroglycerin (Ntg) 0.4 mg Q5M X 3 DOSES PRN SL Prn Chest Pain 03/17/17 07:00 04/16/17 06:59 Ondansetron HCl (Zofran) 4 mg Q6H PRN IVP Nausea & Vomiting 03/17/17 07:00 04/16/17 06:59 Polyethylene Glycol (Miralax) 17 gm HSPRN PRN ORAL Constipation 03/17/17 07:00 04/16/17 06:59 Temazepam (Restoril) 15 mg HSPRN PRN ORAL Insomnia 03/17/17 07:00 03/24/17 06:59 Valproic Acid (Depakene) 250 mg TID ORAL 03/17/17 09:00 04/16/17 08:59 03/18/17 17:22 Allergies: Coded Allergies: No Known Allergies (Unverified , 10/22/13) Subjective awake, alert, responsive, slow in responses, NAD, No CP or SOB, feeling weak Objective Last Vital Signs Date Time Temp Pulse Resp B/P (MAP) Pulse Ox O2 Delivery O2 Flow Rate FiO2 03/18/17 15:41 97.1 88 18 129/63 100 03/18/17 08:14 Room Air 21 Laboratory Tests Test 03/18/17 07:20 White Blood Count 6.6 K/UL (4.8-10.8) Red Blood Count 4.52 M/UL (4.20-5.40) Hemoglobin 14.5 G/DL (12.0-16.0) Hematocrit 44.2 % (37.0-47.0) Mean Corpuscular Volume 98 FL (80-99) Mean Corpuscular Hemoglobin 32.0 PG (27.0-31.0) H Mean Corpuscular Hemoglobin Concent 32.7 G/DL (32.0-36.0) Red Cell Distribution Width 12.9 % (11.6-14.8) Platelet Count 265 K/UL (150-450) Mean Platelet Volume 7.1 FL (6.5-10.1) Neutrophils (%) (Auto) 59.0 % (45.0-75.0) Lymphocytes (%) (Auto) 27.5 % (20.0-45.0) Monocytes (%) (Auto) 7.7 % (1.0-10.0) Eosinophils (%) (Auto) 4.4 % (0.0-3.0) H Basophils (%) (Auto) 1.3 % (0.0-2.0) Prothrombin Time 10.7 SEC (9.30-11.50) Prothromb Time International Ratio 1.0 (0.9-1.1) Activated Partial Thromboplast Time 32 SEC (23-33) Sodium Level 142 MMOL/L (136-145) Potassium Level 3.3 MMOL/L (3.5-5.1) L Chloride Level 105 MMOL/L (98-107) Carbon Dioxide Level 31 MMOL/L (21-32) Anion Gap 7 mmol/L (5-15) Blood Urea Nitrogen 15 mg/dL (7-18) Creatinine 1.7 MG/DL (0.55-1.30) H Estimat Glomerular Filtration Rate mL/min (>60) Glucose Level 84 MG/DL (74-106) Calcium Level 8.8 MG/DL (8.5-10.1) Total Bilirubin 0.4 MG/DL (0.2-1.0) Aspartate Amino Transf (AST/SGOT) 25 U/L (15-37) Alanine Aminotransferase (ALT/SGPT) 9 U/L (12-78) L Alkaline Phosphatase 47 U/L (46-116) Troponin I 0.023 ng/mL (0.000-0.056) Total Protein 6.8 G/DL (6.4-8.2) Albumin 2.8 G/DL (3.4-5.0) L Globulin 4.0 g/dL Albumin/Globulin Ratio 0.7 (1.0-2.7) L Triglycerides Level 54 MG/DL (30-150) Cholesterol Level 127 MG/DL (< 200) LDL Cholesterol 66 mg/dL (<100) HDL Cholesterol 51 MG/DL (40-60) Cholesterol/HDL Ratio 2.5 (3.3-4.4) L Thyroid Stimulating Hormone (TSH) 1.751 uiU/mL (0.358-3.740) Intake and Output 03/18/17 03/19/17 19:00 07:00 Intake Total 390 ml Balance 390 ml Intake Oral 390 ml # Voids 2 # Bowel Movements 2 Objective General: No acute distress, awake and alert HEENT: NCAT, sclera anicteric, PERRL, EOMI. Neck: Supple, no significant jugular venous distention, Lungs: Good inspiratory effort,, clear to auscultation bilaterally, decrease air on bases no Wheeze or Rales. Heart: Irregularly irregular , normal S1/S2, PPM @ LCW. Abdomen: soft, nontender, nondistended. Normoactive bowel sounds. Extremities: No Cyanosis , clubbing or edema. Neuro: A&O x 3, Able to move all extremities Skin: warm, no rashes. Assessment/Plan Assessment/Plan 1. Syncopal episode, probably vasovagal. 2. History of atrial fibrillation, probably permanent. 3. History of diastolic dysfunction and mild systolic dysfunction. 4. Peripheral vascular disease. 5. Coronary artery disease, status post drug-eluting stent placed in the right coronary artery previously. 6. BENTON / ATN on CKD with proteinuria. 7. Parkinson syndrome. 8. Senile dementia. 9. Anxiety disorder. PLAN: PT mobility, OOB to chair on enavu Monitor Labs DC planning in 1 or 2 days Sim Engel MD Mar 18, 2017 18:03
--- NOTE | 2017-03-18 19:33 | Cardiology Progress Note ---
Assessment/Plan Assessment/Plan 1. Syncopal episode. 2. History of atrial fibrillation, probably permanent. 3. History of diastolic dysfunction and mild systolic dysfunction previously. 4. Peripheral vascular disease. 5. Coronary artery disease, status post drug-eluting stent placed in the right coronary artery previously. 6. Renal insufficiency, new compared to 2014 labs from [facility]. 7. carotid stenosis tele afib not had pacer interrogation yet awiat trop neg prel;im echo noted orthostatic neg Subjective Cardiovascular: Denies: chest pain, irregular heart rate, lightheadedness Respiratory: Denies: shortness of breath Gastrointestinal/Abdominal: Denies: abdominal pain Genitourinary: Denies: burning Objective Last 24 Hour Vital Signs Date Time Temp Pulse Resp B/P (MAP) Pulse Ox O2 Delivery O2 Flow Rate FiO2 03/18/17 16:00 90 03/18/17 15:41 97.1 88 18 129/63 100 03/18/17 12:00 83 03/18/17 12:00 97.5 76 20 135/55 96 03/18/17 09:00 58 72 86 03/18/17 08:47 77 134/61 03/18/17 08:46 77 134/61 03/18/17 08:14 72 16 Room Air 21 03/18/17 08:00 84 03/18/17 08:00 97.6 88 21 135/78 99 03/18/17 04:14 97.0 77 20 133/63 97 Room Air 03/18/17 03:41 97 03/17/17 23:42 82 03/17/17 21:33 88 18 Room Air 03/17/17 20:00 98.0 65 20 131/51 100 Room Air General Appearance: no apparent distress Neck: supple Cardiovascular: irregularly irregular Respiratory/Chest: chest wall non-tender, lungs clear Abdomen: non tender, soft, no organomegaly Extremities: no swelling Intake and Output 03/18/17 03/19/17 19:00 07:00 Intake Total 630 ml Balance 630 ml Intake Oral 630 ml # Voids 2 # Bowel Movements 2 Laboratory Tests Test 03/18/17 07:20 White Blood Count 6.6 K/UL (4.8-10.8) Red Blood Count 4.52 M/UL (4.20-5.40) Hemoglobin 14.5 G/DL (12.0-16.0) Hematocrit 44.2 % (37.0-47.0) Mean Corpuscular Volume 98 FL (80-99) Mean Corpuscular Hemoglobin 32.0 PG (27.0-31.0) H Mean Corpuscular Hemoglobin Concent 32.7 G/DL (32.0-36.0) Red Cell Distribution Width 12.9 % (11.6-14.8) Platelet Count 265 K/UL (150-450) Mean Platelet Volume 7.1 FL (6.5-10.1) Neutrophils (%) (Auto) 59.0 % (45.0-75.0) Lymphocytes (%) (Auto) 27.5 % (20.0-45.0) Monocytes (%) (Auto) 7.7 % (1.0-10.0) Eosinophils (%) (Auto) 4.4 % (0.0-3.0) H Basophils (%) (Auto) 1.3 % (0.0-2.0) Prothrombin Time 10.7 SEC (9.30-11.50) Prothromb Time International Ratio 1.0 (0.9-1.1) Activated Partial Thromboplast Time 32 SEC (23-33) Sodium Level 142 MMOL/L (136-145) Potassium Level 3.3 MMOL/L (3.5-5.1) L Chloride Level 105 MMOL/L (98-107) Carbon Dioxide Level 31 MMOL/L (21-32) Anion Gap 7 mmol/L (5-15) Blood Urea Nitrogen 15 mg/dL (7-18) Creatinine 1.7 MG/DL (0.55-1.30) H Estimat Glomerular Filtration Rate mL/min (>60) Glucose Level 84 MG/DL (74-106) Calcium Level 8.8 MG/DL (8.5-10.1) Total Bilirubin 0.4 MG/DL (0.2-1.0) Aspartate Amino Transf (AST/SGOT) 25 U/L (15-37) Alanine Aminotransferase (ALT/SGPT) 9 U/L (12-78) L Alkaline Phosphatase 47 U/L (46-116) Troponin I 0.023 ng/mL (0.000-0.056) Total Protein 6.8 G/DL (6.4-8.2) Albumin 2.8 G/DL (3.4-5.0) L Globulin 4.0 g/dL Albumin/Globulin Ratio 0.7 (1.0-2.7) L Triglycerides Level 54 MG/DL (30-150) Cholesterol Level 127 MG/DL (< 200) LDL Cholesterol 66 mg/dL (<100) HDL Cholesterol 51 MG/DL (40-60) Cholesterol/HDL Ratio 2.5 (3.3-4.4) L Thyroid Stimulating Hormone (TSH) 1.751 uiU/mL (0.358-3.740) MARIE MARQUES Mar 18, 2017 19:33
[2017-03-18 20:00] VITALS: BP 155/61
--- NOTE | 2017-03-18 20:00 | Progress Note ---
DATE: 03/18/2017 SUBJECTIVE: The patient's mental condition is unchanged since previous encounter, calm, no agitation has cognitive impairment. She has been diagnosed with vascular dementia. MENTAL STATUS EXAMINATION: The patient is alert and oriented. Mood is dysphoric and anxious. Affect is constricted. Congruent with mood. Thought process is concrete. Thought content, no suicidal, or homicidal ideations. ASSESSMENT: 1. Delirium/encephalopathy. 2. Vascular dementia. PLAN: 1. We will continue the Ativan. 2. Discontinue the Seroquel. Lindsay Cordova M.D. DR: MATIAS JOB#: [id number] CC:
[2017-03-18] MEDS: LORazepam Inj 2mg/ml 1ml IV PRN (23:54)
[2017-03-19] VITALS: BP 136/66
[2017-03-19 04:34] VITALS: BP 141/57
[2017-03-19] MEDS: Eliquis 2.5mg tablet ORAL SCH ×2 (09:39→17:35)
[2017-03-19] MEDS: Aspirin EC 81mg tab ORAL SCH (09:39)
[2017-03-19] MEDS: LORazepam Inj 2mg/ml 1ml IV PRN (09:39)
[2017-03-19] MEDS: Metoprolol Succinate XL 50mg tab ORAL SCH (09:40)
[2017-03-19] MEDS: Sinemet 25/100 tab ORAL SCH ×3 (09:41→17:35)
--- NOTE | 2017-03-19 13:11 | Cardiology Progress Note ---
Assessment/Plan Assessment/Plan 1. Syncopal episode. 2. History of atrial fibrillation, probably permanent. 3. History of diastolic dysfunction and mild systolic dysfunction previously. 4. Peripheral vascular disease. 5. Coronary artery disease, status post drug-eluting stent placed in the right coronary artery previously. 6. Renal insufficiency, new compared to 2014 labs from [facility]. 7. carotid stenosis tele afib not had pacer interrogation yet awiat trop neg prel;im echo noted had sig tachy once pacer fucntion is assuer will increase bb more foer now extar dose ordered Subjective ROS Limited/Unobtainable: Yes Objective Last 24 Hour Vital Signs Date Time Temp Pulse Resp B/P (MAP) Pulse Ox O2 Delivery O2 Flow Rate FiO2 03/19/17 09:42 67 140/61 03/19/17 09:40 67 140/61 03/19/17 09:00 67 78 99 03/19/17 08:00 99 03/19/17 07:02 102 22 Room Air 21 03/19/17 04:34 96.6 80 18 141/57 Room Air 03/19/17 04:00 141 03/19/17 00:00 98.4 101 18 136/66 97 Room Air 03/19/17 00:00 116 03/18/17 20:06 98 18 Room Air 21 03/18/17 20:00 166 03/18/17 20:00 98.1 80 18 155/61 Room Air 03/18/17 16:00 90 03/18/17 15:41 97.1 88 18 129/63 100 General Appearance: alert Neck: supple Cardiovascular: irregularly irregular Respiratory/Chest: lungs clear Abdomen: normal bowel sounds, non tender, soft Extremities: no swelling Intake and Output 03/19/17 03/20/17 19:00 07:00 # Bowel Movements 1 MARIE MARQUES Mar 19, 2017 13:11
[2017-03-19] MEDS ORDERED: Metoprolol Succinate XL 25mg tab ORAL ONE (13:30)
--- NOTE | 2017-03-19 14:18 | Internal Med Progress Note ---
Subjective Date of Service: Mar 19, 2017 Physician Name Mayank Patel Attending Physician Sim Engel MD Current Medications Medications (Trade) Dose Ordered Sig/Trudy Route PRN Reason Start Time Stop Time Status Last Admin Dose Admin Acetaminophen (Tylenol) 650 mg Q4H PRN ORAL fever (temp>100.5F) 03/17/17 07:00 04/16/17 06:59 Al Hydroxide/Mg Hydroxide (Mylanta II) 30 ml Q6H PRN ORAL dyspepsia 03/17/17 07:00 04/16/17 06:59 Albuterol/ Ipratropium (Albuterol/ Ipratropium) 3 ml Q4H PRN HHN Shortness of Breath 03/17/17 07:00 03/22/17 06:59 Amlodipine Besylate (Norvasc) 2.5 mg DAILY ORAL 03/17/17 09:00 04/16/17 08:59 03/19/17 09:42 Apixaban (Eliquis) 2.5 mg BID ORAL 03/18/17 09:00 04/17/17 08:59 03/19/17 09:39 Aspirin (Ecotrin) 81 mg DAILY ORAL 03/18/17 09:00 04/17/17 08:59 03/19/17 09:39 Carbidopa/Levodopa (Sinemet 25/100) 0.5 ea THREE TIMES A DAY ORAL 03/17/17 15:15 04/16/17 15:14 03/19/17 14:08 Clonidine HCl (Catapres) 0.1 mg Q4H PRN ORAL For High Blood Pressure 03/17/17 07:00 04/16/17 06:59 Dextrose (Dextrose 50%) STAT PRN IV Hypoglycemia 03/17/17 07:00 04/16/17 06:59 Lorazepam (Ativan 2mg/ml 1ml) 0.5 mg Q4H PRN IV For Anxiety 03/17/17 07:00 03/24/17 06:59 03/19/17 09:39 Metoprolol Succinate (Toprol XL) 50 mg DAILY ORAL 03/18/17 09:00 04/17/17 08:59 03/19/17 09:40 Morphine Sulfate (Morphine Sulfate) 1 mg Q4H PRN IVP For Pain 7-10 03/17/17 07:00 03/24/17 06:59 Nitroglycerin (Ntg) 0.4 mg Q5M X 3 DOSES PRN SL Prn Chest Pain 03/17/17 07:00 04/16/17 06:59 Ondansetron HCl (Zofran) 4 mg Q6H PRN IVP Nausea & Vomiting 03/17/17 07:00 04/16/17 06:59 Polyethylene Glycol (Miralax) 17 gm HSPRN PRN ORAL Constipation 03/17/17 07:00 04/16/17 06:59 Temazepam (Restoril) 15 mg HSPRN PRN ORAL Insomnia 03/17/17 07:00 03/24/17 06:59 Valproic Acid (Depakene) 250 mg TID ORAL 03/17/17 09:00 04/16/17 08:59 03/19/17 14:08 Allergies: Coded Allergies: No Known Allergies (Unverified , 10/22/13) ROS Limited/Unobtainable: Yes Subjective 81 YO F admitted with syncope. Cover for Int Med-Dr Engel. Objective Last Vital Signs Date Time Temp Pulse Resp B/P (MAP) Pulse Ox O2 Delivery O2 Flow Rate FiO2 03/19/17 14:09 100 150/77 03/19/17 07:02 22 Room Air 21 03/19/17 04:34 96.6 03/19/17 00:00 97 Intake and Output 03/19/17 03/20/17 19:00 07:00 # Bowel Movements 1 Objective Objective General: No acute distress, awake and alert HEENT: NCAT, sclera anicteric, PERRL, EOMI. Neck: Supple, no significant jugular venous distention, Lungs: Good inspiratory effort,, clear to auscultation bilaterally, decrease air on bases no Wheeze or Rales. Heart: Irregularly irregular , normal S1/S2, PPM @ LCW. Abdomen: soft, nontender, nondistended. Normoactive bowel sounds. Extremities: No Cyanosis , clubbing or edema. Neuro: A&O x 3, Able to move all extremities Skin: warm, no rashes. Assessment/Plan Assessment/Plan Assessment/Plan 1. Syncopal episode, probably vasovagal. 2. History of atrial fibrillation, probably permanent. 3. History of diastolic dysfunction and mild systolic dysfunction. 4. Peripheral vascular disease. 5. Coronary artery disease, status post drug-eluting stent placed in the right coronary artery previously. 6. BENTON / ATN on CKD with proteinuria. 7. Parkinson syndrome. 8. Senile dementia. 9. Anxiety disorder. PLAN: PT mobility, OOB to chair on [employer] Monitor Labs DC planning in 1 or 2 days MAYANK PATEL Mar 19, 2017 14:18
--- NOTE | 2017-03-19 15:17 | Pulmonology Progress Note ---
Assessment/Plan Assessment/Plan ASSESSMENT Syncopal episode, probably vasovagal acute encephalopathy on chronic dementia Permanent atrial fibrillation HTN Pacemaker Parkinson syndrome. Senile vascular dementia. mild pulmonary HTN carotid stenosis R side PLAN OF CARE Tele Cardio and neuro follow pacemaker interrogation pending Carotid Duplex with moderate to severe stenosis R ICA CT head no acute IC pathology orthostatic VS - no orthostatic changes , ECHO with pEF 55% and RVSP of 36 c/w mild pulmonary HTN Rate control with BB , additional dose given today as per cardio a/coagulation with Eiquis BP management with CCB, BB and Clonidine prn continue Plavix, Lasix avoid atypical antipsychotic neuro started on Sinemet O2 HHN prn Pain management bowel regimen fall precautions PT/OT case discussed and evaluated by supervising physician Subjective Allergies: Coded Allergies: No Known Allergies (Unverified , 10/22/13) Subjective denies chest pain, SOB afebrile no signs of respiratory distress episode of A fib with RVR currently rate controlled, remains in A fib Objective Last 24 Hour Vital Signs Date Time Temp Pulse Resp B/P (MAP) Pulse Ox O2 Delivery O2 Flow Rate FiO2 03/19/17 14:09 100 150/77 03/19/17 12:00 82 03/19/17 09:42 67 140/61 03/19/17 09:40 67 140/61 03/19/17 09:00 67 78 99 03/19/17 08:00 99 03/19/17 07:02 102 22 Room Air 21 03/19/17 04:34 96.6 80 18 141/57 Room Air 03/19/17 04:00 141 03/19/17 00:00 98.4 101 18 136/66 97 Room Air 03/19/17 00:00 116 03/18/17 20:06 98 18 Room Air 21 03/18/17 20:00 166 03/18/17 20:00 98.1 80 18 155/61 Room Air 03/18/17 16:00 90 03/18/17 15:41 97.1 88 18 129/63 100 Intake and Output 03/19/17 03/20/17 19:00 07:00 Intake Total 120 ml Balance 120 ml Intake Oral 120 ml # Voids 1 # Bowel Movements 2 Objective General Appearance: no acute distress, awake, alert, responsive HEENT: normocephalic, atraumatic, anicteric Respiratory/Chest: lungs clear, no accessory muscle use Cardiovascular: normal rate, no JVD, irregularly irregular - A fib on tele Abdomen: normal bowel sounds, soft, non tender, non distended Extremities: no edema, pedal pulses normal Neurologic/Psychiatric: alert, responsive Musculoskeletal: atrophy - BLE Current Medications Medications (Trade) Dose Ordered Sig/Trudy Route PRN Reason Start Time Stop Time Status Last Admin Dose Admin Acetaminophen (Tylenol) 650 mg Q4H PRN ORAL fever (temp>100.5F) 03/17/17 07:00 04/16/17 06:59 Al Hydroxide/Mg Hydroxide (Mylanta II) 30 ml Q6H PRN ORAL dyspepsia 03/17/17 07:00 04/16/17 06:59 Albuterol/ Ipratropium (Albuterol/ Ipratropium) 3 ml Q4H PRN HHN Shortness of Breath 03/17/17 07:00 03/22/17 06:59 Amlodipine Besylate (Norvasc) 2.5 mg DAILY ORAL 03/17/17 09:00 04/16/17 08:59 03/19/17 09:42 Apixaban (Eliquis) 2.5 mg BID ORAL 03/18/17 09:00 04/17/17 08:59 03/19/17 09:39 Aspirin (Ecotrin) 81 mg DAILY ORAL 03/18/17 09:00 04/17/17 08:59 03/19/17 09:39 Carbidopa/Levodopa (Sinemet 25/100) 0.5 ea THREE TIMES A DAY ORAL 03/17/17 15:15 04/16/17 15:14 03/19/17 14:08 Clonidine HCl (Catapres) 0.1 mg Q4H PRN ORAL For High Blood Pressure 03/17/17 07:00 04/16/17 06:59 Dextrose (Dextrose 50%) STAT PRN IV Hypoglycemia 03/17/17 07:00 04/16/17 06:59 Lorazepam (Ativan 2mg/ml 1ml) 0.5 mg Q4H PRN IV For Anxiety 03/17/17 07:00 03/24/17 06:59 03/19/17 09:39 Metoprolol Succinate (Toprol XL) 50 mg DAILY ORAL 03/18/17 09:00 04/17/17 08:59 12/16/17 09:40 Morphine Sulfate (Morphine Sulfate) 1 mg Q4H PRN IVP For Pain 7-10 03/17/17 07:00 03/24/17 06:59 Nitroglycerin (Ntg) 0.4 mg Q5M X 3 DOSES PRN SL Prn Chest Pain 03/17/17 07:00 04/16/17 06:59 Ondansetron HCl (Zofran) 4 mg Q6H PRN IVP Nausea & Vomiting 03/17/17 07:00 04/16/17 06:59 Polyethylene Glycol (Miralax) 17 gm HSPRN PRN ORAL Constipation 03/17/17 07:00 04/16/17 06:59 Temazepam (Restoril) 15 mg HSPRN PRN ORAL Insomnia 03/17/17 07:00 03/24/17 06:59 Valproic Acid (Depakene) 250 mg TID ORAL 03/17/17 09:00 04/16/17 08:59 03/19/17 14:08 Ahsan CrowderConey Island HospitalYuki Quiles NP Mar 19, 2017 15:17
--- NOTE | 2017-03-19 15:21 | Consultation ---
Consult Note Assessment/Plan Renal consult dictated # [id number] JANNET YANEZ Mar 19, 2017 15:21
[2017-03-19 16:12] VITALS: BP 160/92
--- NOTE | 2017-03-19 17:01 | Consultation ---
DATE OF CONSULTATION: 03/19/2017 NEPHROLOGY CONSULTATION CONSULTING PHYSICIAN: Macho Tam M.D. REFERRING PHYSICIAN: Sim Engel M.D. REASON FOR CONSULTATION: Renal failure. HISTORY OF PRESENT ILLNESS: This is an 81-year-old female, who was admitted with a diagnosis of syncope. The patient is somewhat a poor historian. I was asked to see her because of elevation of BUN and creatinine, which are 15 and 1.7 today. Yesterday, serum creatinine was 2.0. The patient does not know anything about kidney problems in the past. PAST MEDICAL HISTORY: Includes history of atrial fibrillation, hypertension, and psychiatric disorder. The patient is status post pacemaker implantation. MEDICATIONS: Reviewed in the EMR. ALLERGIES: No known drug allergies. SOCIAL HISTORY: The patient lives with the daughter. No history of smoking or alcohol abuse. REVIEW OF SYSTEMS: Noncontributory. PHYSICAL EXAMINATION: GENERAL: The patient is an elderly female, in no acute distress. VITAL SIGNS: Blood pressure is 150/77, pulse 100, and temperature 96.6. HEENT: [place] conjunctivae. Anicteric sclerae. NECK: Supple. LUNGS: Clear to auscultation. HEART: S1 and S2 without murmurs or rubs. ABDOMEN: Soft and nontender. EXTREMITIES: No cyanosis or edema. LABORATORY FINDINGS: The chemistry panel shows a serum sodium of 142, potassium 3.3, chloride 105, CO2 31, BUN 15, and creatinine 1.7. UA shows 3+ protein. CBC shows WBC of 6.6, hematocrit is 44.2, hemoglobin is 14.5, and platelets 265,000. ASSESSMENT: This is an 81-year-old female, who was admitted with a diagnosis of syncope. It appears that she has some acute renal failure based on the fact that serum creatinine has improved. She may have also underlying chronic kidney disease especially with the presence of 3+ proteinuria. The etiology of her chronic kidney disease would be atherosclerotic kidney disease and hypertensive nephropathy. The acute renal failure could have been caused by volume depletion. Specifically, the patient was taking diuretics at home. PLAN: I would hold off the diuretics. Consider IV fluid, if renal function does not improve. laboratories will be followed and further recommendations will be given. I would avoid also hypotension. Potassium repleted. Thank you very much, Dr. Engel, for this consultation. Macho Tam M.D. DR: MICK JOB#: [id number] CC: MICHELLE
[2017-03-19 20:00] VITALS: BP 122/56
[2017-03-20] VITALS: BP 144/71
[2017-03-20 04:00] VITALS: BP 137/87
[2017-03-20] MEDS ORDERED: Metoprolol 5mg/5ml Inj IVP ONE (06:00)
[2017-03-20 07:52] LABS: BASOPHILS % (AUTO) 1.1 % (0.0-2.0); EOSINOPHILS % (AUTO) 1.9 % (0.0-3.0); LYMPHOCYTES % (AUTO) 26.8 % (20.0-45.0); MEAN CORPUSCULAR HEMOGLOBIN 29.7 PG (27.0-31.0); MEAN CORPUSCULAR HGB CONC 31.2 G/DL (32.0-36.0); MEAN CORPUSCULAR VOLUME 95 FL (80-99); MEAN PLATELET VOLUME 7.2 FL (6.5-10.1); MONOCYTES % (AUTO) 15.5 % (1.0-10.0); NEUTROPHILS % (AUTO) 54.7 % (45.0-75.0); PLATELET COUNT 245 K/UL (150-450); RED BLOOD COUNT 4.11 M/UL (4.20-5.40); WHITE BLOOD COUNT 3.9 K/UL (4.8-10.8)
[2017-03-20 08:12] LABS: ANION GAP 11 mmol/L (5-15); CARBON DIOXIDE 27 MMOL/L (21-32); CHLORIDE 104 MMOL/L (98-107); CREATININE 1.4 MG/DL (0.55-1.30); POTASSIUM 3.2 MMOL/L (3.5-5.1); SODIUM 142 MMOL/L (136-145)
[2017-03-20] MEDS: Aspirin EC 81mg tab ORAL SCH (08:50)
[2017-03-20] MEDS: Sinemet 25/100 tab ORAL SCH ×3 (08:59→17:31)
[2017-03-20] MEDS: Eliquis 2.5mg tablet ORAL SCH ×2 (08:59→17:30)
--- NOTE | 2017-03-20 11:24 | Pulmonology Progress Note ---
Assessment/Plan Assessment/Plan ASSESSMENT Syncopal episode, probably vasovagal acute encephalopathy on chronic dementia Permanent atrial fibrillation AF with RVR-resolved HTN Pacemaker Parkinson syndrome. Senile vascular dementia. mild pulmonary HTN carotid stenosis R side PLAN OF CARE Tele Cardio and neuro follow pacemaker interrogation pending Carotid Duplex with moderate to severe stenosis R ICA on ASA vascular surgery eval - per PMD CT head no acute IC pathology orthostatic VS - no orthostatic changes , ECHO with pEF 55% and RVSP of 36 c/w mild pulmonary HTN Rate control with BB , additional dose given today as per cardio a/coagulation with Eiquis BP management with CCB, BB and Clonidine prn continue Plavix, Lasix avoid atypical antipsychotic neuro started on Sinemet O2 HHN prn Pain management bowel regimen fall precautions PT/OT case discussed and evaluated by supervising physician Subjective Allergies: Coded Allergies: No Known Allergies (Unverified , 10/22/13) All Systems: reviewed and negative except above Subjective denies chest pain, SOB afebrile no signs of respiratory distress episode of A fib with RVR early in am BB given as per cardio currently rate controlled , but remains in A fib Objective Last 24 Hour Vital Signs Date Time Temp Pulse Resp B/P (MAP) Pulse Ox O2 Delivery O2 Flow Rate FiO2 03/20/17 09:48 99 03/20/17 09:00 83 96 03/20/17 08:51 83 143/63 03/20/17 08:50 83 143/63 03/20/17 08:18 87 18 Room Air 21 03/20/17 04:00 161 03/20/17 04:00 97.2 157 18 137/87 Room Air 03/20/17 00:00 97.0 83 18 144/71 100 Room Air 03/20/17 00:00 82 03/19/17 20:00 116 03/19/17 20:00 98.2 90 20 122/56 03/19/17 19:30 80 18 Room Air 21 03/19/17 16:12 96.9 71 19 160/92 95 Room Air 03/19/17 16:00 89 03/19/17 14:09 100 150/77 03/19/17 12:00 82 Intake and Output 03/20/17 03/21/17 19:00 07:00 Intake Total 200 ml Balance 200 ml Intake Oral 200 ml # Bowel Movements 1 Objective General Appearance: no acute distress, awake, alert, responsive HEENT: normocephalic, atraumatic, anicteric Respiratory/Chest: lungs clear, no accessory muscle use Cardiovascular: normal rate, no JVD, irregularly irregular - A fib on tele Abdomen: normal bowel sounds, soft, non tender, non distended Extremities: no edema, pedal pulses normal Neurologic/Psychiatric: alert, responsive Musculoskeletal: atrophy - BLE Laboratory Tests 03/20/17 06:20: White Blood Count 3.9L, Red Blood Count 4.11L, Hemoglobin 12.2, Hematocrit 39.0 , Mean Corpuscular Volume 95, Mean Corpuscular Hemoglobin 29.7, Mean Corpuscular Hemoglobin Concent 31.2L, Red Cell Distribution Width 14.0, Platelet Count 245, Mean Platelet Volume 7.2, Neutrophils (%) (Auto) 54.7, Lymphocytes (%) (Auto) 26.8, Monocytes (%) (Auto) 15.5H, Eosinophils (%) (Auto) 1.9, Basophils (%) (Auto) 1.1, Sodium Level 142, Potassium Level 3.2L, Chloride Level 104, Carbon Dioxide Level 27, Anion Gap 11, Blood Urea Nitrogen 17, Creatinine 1.4H, Estimat Glomerular Filtration Rate , Glucose Level 89, Calcium Level 9.0 Current Medications Medications (Trade) Dose Ordered Sig/Trudy Route PRN Reason Start Time Stop Time Status Last Admin Dose Admin Acetaminophen (Tylenol) 650 mg Q4H PRN ORAL fever (temp>100.5F) 03/17/17 07:00 04/16/17 06:59 Al Hydroxide/Mg Hydroxide (Mylanta II) 30 ml Q6H PRN ORAL dyspepsia 03/17/17 07:00 04/16/17 06:59 Albuterol/ Ipratropium (Albuterol/ Ipratropium) 3 ml Q4H PRN HHN Shortness of Breath 03/17/17 07:00 03/22/17 06:59 Amlodipine Besylate (Norvasc) 2.5 mg DAILY ORAL 03/17/17 09:00 04/16/17 08:59 03/20/17 08:51 Apixaban (Eliquis) 2.5 mg BID ORAL 03/18/17 09:00 04/17/17 08:59 03/20/17 08:59 Aspirin (Ecotrin) 81 mg DAILY ORAL 03/18/17 09:00 04/17/17 08:59 03/20/17 08:50 Carbidopa/Levodopa (Sinemet 25/100) 0.5 ea THREE TIMES A DAY ORAL 03/17/17 15:15 04/16/17 15:14 03/20/17 08:59 Clonidine HCl (Catapres) 0.1 mg Q4H PRN ORAL For High Blood Pressure 03/17/17 07:00 04/16/17 06:59 Dextrose (Dextrose 50%) STAT PRN IV Hypoglycemia 03/17/17 07:00 04/16/17 06:59 Lorazepam (Ativan 2mg/ml 1ml) 0.5 mg Q4H PRN IV For Anxiety 03/17/17 07:00 03/24/17 06:59 03/19/17 09:39 Metoprolol Tartrate (Lopressor) 100 mg EVERY 12 HOURS ORAL 03/20/17 09:00 04/19/17 08:59 03/20/17 08:50 Morphine Sulfate (Morphine Sulfate) 1 mg Q4H PRN IVP For Pain 7-10 03/17/17 07:00 03/24/17 06:59 Nitroglycerin (Ntg) 0.4 mg Q5M X 3 DOSES PRN SL Prn Chest Pain 03/17/17 07:00 04/16/17 06:59 Ondansetron HCl (Zofran) 4 mg Q6H PRN IVP Nausea & Vomiting 03/17/17 07:00 04/16/17 06:59 Polyethylene Glycol (Miralax) 17 gm HSPRN PRN ORAL Constipation 03/17/17 07:00 04/16/17 06:59 Temazepam (Restoril) 15 mg HSPRN PRN ORAL Insomnia 03/17/17 07:00 03/24/17 06:59 Valproic Acid (Depakene) 250 mg TID ORAL 03/17/17 09:00 04/16/17 08:59 03/20/17 08:59 Ahsan CrowderMontefiore Health SystemYuki Quiles NP Mar 20, 2017 11:24
--- NOTE | 2017-03-20 12:10 | Cardiology Progress Note ---
Assessment/Plan Assessment/Plan 1. Syncopal episode. 2. History of atrial fibrillation, probably permanent. 3. History of diastolic dysfunction and mild systolic dysfunction previously. 4. Peripheral vascular disease. 5. Coronary artery disease, status post drug-eluting stent placed in the right coronary artery previously. 6. Renal insufficiency, new compared to 2014 labs from [facility]. 7. carotid stenosis tele afib pacer interrogated yest functioning fine trop neg prelim echo noted had sig tachy i have increased bb more today now taht pacer fucntion deemed to be normal d/w dtr at bedside so far no over cause fo syncope noted however ist is possible she was too tachy and therefore had sycope Subjective ROS Limited/Unobtainable: Yes Objective Last 24 Hour Vital Signs Date Time Temp Pulse Resp B/P (MAP) Pulse Ox O2 Delivery O2 Flow Rate FiO2 03/20/17 09:48 99 03/20/17 09:00 83 96 03/20/17 08:51 83 143/63 03/20/17 08:50 83 143/63 03/20/17 08:18 87 18 Room Air 21 03/20/17 04:00 161 03/20/17 04:00 97.2 157 18 137/87 Room Air 03/20/17 00:00 97.0 83 18 144/71 100 Room Air 03/20/17 00:00 82 03/19/17 20:00 116 03/19/17 20:00 98.2 90 20 122/56 03/19/17 19:30 80 18 Room Air 21 03/19/17 16:12 96.9 71 19 160/92 95 Room Air 03/19/17 16:00 89 03/19/17 14:09 100 150/77 General Appearance: no apparent distress, alert Neck: supple Cardiovascular: irregularly irregular Respiratory/Chest: lungs clear Abdomen: normal bowel sounds, non tender, soft Extremities: no swelling Intake and Output 03/20/17 03/21/17 19:00 07:00 Intake Total 120 ml Balance 120 ml Intake Oral 120 ml # Voids 1 # Bowel Movements 3 Laboratory Tests Test 03/20/17 06:20 White Blood Count 3.9 K/UL (4.8-10.8) L Red Blood Count 4.11 M/UL (4.20-5.40) L Hemoglobin 12.2 G/DL (12.0-16.0) Hematocrit 39.0 % (37.0-47.0) Mean Corpuscular Volume 95 FL (80-99) Mean Corpuscular Hemoglobin 29.7 PG (27.0-31.0) Mean Corpuscular Hemoglobin Concent 31.2 G/DL (32.0-36.0) L Red Cell Distribution Width 14.0 % (11.6-14.8) Platelet Count 245 K/UL (150-450) Mean Platelet Volume 7.2 FL (6.5-10.1) Neutrophils (%) (Auto) 54.7 % (45.0-75.0) Lymphocytes (%) (Auto) 26.8 % (20.0-45.0) Monocytes (%) (Auto) 15.5 % (1.0-10.0) H Eosinophils (%) (Auto) 1.9 % (0.0-3.0) Basophils (%) (Auto) 1.1 % (0.0-2.0) Sodium Level 142 MMOL/L (136-145) Potassium Level 3.2 MMOL/L (3.5-5.1) L Chloride Level 104 MMOL/L (98-107) Carbon Dioxide Level 27 MMOL/L (21-32) Anion Gap 11 mmol/L (5-15) Blood Urea Nitrogen 17 mg/dL (7-18) Creatinine 1.4 MG/DL (0.55-1.30) H Estimat Glomerular Filtration Rate mL/min (>60) Glucose Level 89 MG/DL (74-106) Calcium Level 9.0 MG/DL (8.5-10.1) MARIE MARQUES Mar 20, 2017 12:10
--- NOTE | 2017-03-20 14:33 | Nephrology Progress Note ---
Assessment/Plan Problem List: (1) ARF (acute renal failure) Assessment: better (2) Hypertension (3) CHF (congestive heart failure) (4) Anemia (5) Atrial fibrillation (6) Hypokalemia Plan Replete K follow BMP watch BP Subjective Subjective wants to go home Objective Objective Last 24 Hour Vital Signs Date Time Temp Pulse Resp B/P (MAP) Pulse Ox O2 Delivery O2 Flow Rate FiO2 03/20/17 12:00 82 03/20/17 09:48 99 03/20/17 09:00 83 96 03/20/17 08:51 83 143/63 03/20/17 08:50 83 143/63 03/20/17 08:18 87 18 Room Air 21 03/20/17 04:00 161 03/20/17 04:00 97.2 157 18 137/87 Room Air 03/20/17 00:00 97.0 83 18 144/71 100 Room Air 03/20/17 00:00 82 03/19/17 20:00 116 03/19/17 20:00 98.2 90 20 122/56 03/19/17 19:30 80 18 Room Air 21 03/19/17 16:12 96.9 71 19 160/92 95 Room Air 03/19/17 16:00 89 Intake and Output 03/20/17 03/21/17 19:00 07:00 Intake Total 270 ml Balance 270 ml Intake Oral 270 ml # Voids 1 # Bowel Movements 3 Laboratory Tests 03/20/17 06:20: White Blood Count 3.9L, Red Blood Count 4.11L, Hemoglobin 12.2, Hematocrit 39.0 , Mean Corpuscular Volume 95, Mean Corpuscular Hemoglobin 29.7, Mean Corpuscular Hemoglobin Concent 31.2L, Red Cell Distribution Width 14.0, Platelet Count 245, Mean Platelet Volume 7.2, Neutrophils (%) (Auto) 54.7, Lymphocytes (%) (Auto) 26.8, Monocytes (%) (Auto) 15.5H, Eosinophils (%) (Auto) 1.9, Basophils (%) (Auto) 1.1, Sodium Level 142, Potassium Level 3.2L, Chloride Level 104, Carbon Dioxide Level 27, Anion Gap 11, Blood Urea Nitrogen 17, Creatinine 1.4H, Estimat Glomerular Filtration Rate , Glucose Level 89, Calcium Level 9.0 Height (Feet): 5 Height (Inches): 6.00 Weight (Pounds): 160 Cardiovascular: normal rate Respiratory/Chest: lungs clear Extremities: trace edema JANNET YANEZ Mar 20, 2017 14:33
[2017-03-20] MEDS ORDERED: Albuterol/Ipratropium 3ml neb HHN PRN (15:00)
[2017-03-20 16:00] VITALS: BP 105/51
--- NOTE | 2017-03-20 16:51 | Internal Med Progress Note ---
Subjective Date of Service: Mar 20, 2017 Physician Name Mayank Patel Attending Physician Sim Engel MD Current Medications Medications (Trade) Dose Ordered Sig/Trudy Route PRN Reason Start Time Stop Time Status Last Admin Dose Admin Acetaminophen (Tylenol) 650 mg Q4H PRN ORAL fever (temp>100.5F) 03/17/17 07:00 04/16/17 06:59 Al Hydroxide/Mg Hydroxide (Mylanta II) 30 ml Q6H PRN ORAL dyspepsia 03/17/17 07:00 04/16/17 06:59 Albuterol/ Ipratropium (Albuterol/ Ipratropium) 3 ml Q4H PRN HHN Shortness of Breath 03/20/17 15:00 03/25/17 14:59 Amlodipine Besylate (Norvasc) 2.5 mg DAILY ORAL 03/17/17 09:00 04/16/17 08:59 03/20/17 08:51 Apixaban (Eliquis) 2.5 mg BID ORAL 03/18/17 09:00 04/17/17 08:59 03/20/17 08:59 Aspirin (Ecotrin) 81 mg DAILY ORAL 03/18/17 09:00 04/17/17 08:59 03/20/17 08:50 Carbidopa/Levodopa (Sinemet 25/100) 0.5 ea THREE TIMES A DAY ORAL 03/17/17 15:15 04/16/17 15:14 03/20/17 13:25 Clonidine HCl (Catapres) 0.1 mg Q4H PRN ORAL For High Blood Pressure 03/17/17 07:00 04/16/17 06:59 Dextrose (Dextrose 50%) STAT PRN IV Hypoglycemia 03/17/17 07:00 04/16/17 06:59 Lorazepam (Ativan 2mg/ml 1ml) 0.5 mg Q4H PRN IV For Anxiety 03/17/17 07:00 03/24/17 06:59 03/19/17 09:39 Metoprolol Tartrate (Lopressor) 100 mg EVERY 12 HOURS ORAL 03/20/17 09:00 04/19/17 08:59 03/20/17 08:50 Morphine Sulfate (Morphine Sulfate) 1 mg Q4H PRN IVP For Pain 7-10 03/17/17 07:00 03/24/17 06:59 Nitroglycerin (Ntg) 0.4 mg Q5M X 3 DOSES PRN SL Prn Chest Pain 03/17/17 07:00 04/16/17 06:59 Ondansetron HCl (Zofran) 4 mg Q6H PRN IVP Nausea & Vomiting 03/17/17 07:00 04/16/17 06:59 Polyethylene Glycol (Miralax) 17 gm HSPRN PRN ORAL Constipation 03/17/17 07:00 04/16/17 06:59 Temazepam (Restoril) 15 mg HSPRN PRN ORAL Insomnia 03/17/17 07:00 03/24/17 06:59 Valproic Acid (Depakene) 250 mg TID ORAL 03/17/17 09:00 04/16/17 08:59 03/20/17 13:25 Allergies: Coded Allergies: No Known Allergies (Unverified , 10/22/13) Subjective 81 YO F admitted with syncope. Cover for Int Med-Dr Engel. Objective Last Vital Signs Date Time Temp Pulse Resp B/P (MAP) Pulse Ox O2 Delivery O2 Flow Rate FiO2 03/20/17 12:00 82 03/20/17 08:51 143/63 03/20/17 08:18 18 Room Air 21 03/20/17 04:00 97.2 03/20/17 00:00 100 Laboratory Tests Test 03/20/17 06:20 White Blood Count 3.9 K/UL (4.8-10.8) L Red Blood Count 4.11 M/UL (4.20-5.40) L Hemoglobin 12.2 G/DL (12.0-16.0) Hematocrit 39.0 % (37.0-47.0) Mean Corpuscular Volume 95 FL (80-99) Mean Corpuscular Hemoglobin 29.7 PG (27.0-31.0) Mean Corpuscular Hemoglobin Concent 31.2 G/DL (32.0-36.0) L Red Cell Distribution Width 14.0 % (11.6-14.8) Platelet Count 245 K/UL (150-450) Mean Platelet Volume 7.2 FL (6.5-10.1) Neutrophils (%) (Auto) 54.7 % (45.0-75.0) Lymphocytes (%) (Auto) 26.8 % (20.0-45.0) Monocytes (%) (Auto) 15.5 % (1.0-10.0) H Eosinophils (%) (Auto) 1.9 % (0.0-3.0) Basophils (%) (Auto) 1.1 % (0.0-2.0) Sodium Level 142 MMOL/L (136-145) Potassium Level 3.2 MMOL/L (3.5-5.1) L Chloride Level 104 MMOL/L (98-107) Carbon Dioxide Level 27 MMOL/L (21-32) Anion Gap 11 mmol/L (5-15) Blood Urea Nitrogen 17 mg/dL (7-18) Creatinine 1.4 MG/DL (0.55-1.30) H Estimat Glomerular Filtration Rate mL/min (>60) Glucose Level 89 MG/DL (74-106) Calcium Level 9.0 MG/DL (8.5-10.1) Intake and Output 03/20/17 03/21/17 19:00 07:00 Intake Total 270 ml Balance 270 ml Intake Oral 270 ml # Voids 1 # Bowel Movements 3 Objective Objective General: No acute distress, awake and alert HEENT: NCAT, sclera anicteric, PERRL, EOMI. Neck: Supple, no significant jugular venous distention, Lungs: Good inspiratory effort,, clear to auscultation bilaterally, decrease air on bases no Wheeze or Rales. Heart: Irregularly irregular , normal S1/S2, PPM @ LCW. Abdomen: soft, nontender, nondistended. Normoactive bowel sounds. Extremities: No Cyanosis , clubbing or edema. Neuro: A&O x 3, Able to move all extremities Skin: warm, no rashes. Assessment/Plan Assessment/Plan Assessment/Plan 1. Syncopal episode, probably vasovagal. 2. History of atrial fibrillation, probably permanent. 3. History of diastolic dysfunction and mild systolic dysfunction. 4. Peripheral vascular disease. 5. Coronary artery disease, status post drug-eluting stent placed in the right coronary artery previously. 6. BENTON / ATN on CKD with proteinuria. 7. Parkinson syndrome. 8. Senile dementia. 9. Anxiety disorder. 10. Hypokalemia-Replace potassium PLAN: PT mobility, OOB to chair on [employer] Monitor Labs DC planning in 1 or 2 days PATEL,MAYANK Mar 20, 2017 16:51
[2017-03-20 20:22] VITALS: BP 149/56
--- NOTE | 2017-03-20 23:04 | General Progress Note ---
Assessment/Plan Status: stable Subjective Date patient seen: Mar 19, 2017 Neurologic/Psychiatric: Reports: anxiety, depressed Allergies: Coded Allergies: No Known Allergies (Unverified , 10/22/13) Objective Last 24 Hour Vital Signs Date Time Temp Pulse Resp B/P (MAP) Pulse Ox O2 Delivery O2 Flow Rate FiO2 03/20/17 20:46 70 149/56 03/20/17 20:22 97.5 70 20 149/56 100 Room Air 03/20/17 20:08 78 16 Room Air 21 03/20/17 16:00 97.6 75 18 105/51 100 Room Air 03/20/17 16:00 89 03/20/17 12:00 82 03/20/17 09:48 99 03/20/17 09:00 83 96 03/20/17 08:51 83 143/63 03/20/17 08:50 83 143/63 03/20/17 08:18 87 18 Room Air 21 03/20/17 04:00 161 03/20/17 04:00 97.2 157 18 137/87 Room Air 03/20/17 00:00 97.0 83 18 144/71 100 Room Air 03/20/17 00:00 82 Intake and Output 03/20/17 03/21/17 19:00 07:00 Intake Total 510 ml Output Total 0 ml Balance 510 ml 0 ml Intake Oral 510 ml Output Urine Total 0 ml # Voids 1 # Bowel Movements 3 Laboratory Tests 03/20/17 06:20: White Blood Count 3.9L, Red Blood Count 4.11L, Hemoglobin 12.2, Hematocrit 39.0 , Mean Corpuscular Volume 95, Mean Corpuscular Hemoglobin 29.7, Mean Corpuscular Hemoglobin Concent 31.2L, Red Cell Distribution Width 14.0, Platelet Count 245, Mean Platelet Volume 7.2, Neutrophils (%) (Auto) 54.7, Lymphocytes (%) (Auto) 26.8, Monocytes (%) (Auto) 15.5H, Eosinophils (%) (Auto) 1.9, Basophils (%) (Auto) 1.1, Sodium Level 142, Potassium Level 3.2L, Chloride Level 104, Carbon Dioxide Level 27, Anion Gap 11, Blood Urea Nitrogen 17, Creatinine 1.4H, Estimat Glomerular Filtration Rate , Glucose Level 89, Calcium Level 9.0 Height (Feet): 5 Height (Inches): 6.00 Weight (Pounds): 160 General Appearance: no apparent distress, alert Neurologic: alert, normal mood/affect Lindsay Cordova M.D. Mar 20, 2017 23:04
[2017-03-21 00:34] VITALS: BP 141/88
[2017-03-21 08:00] VITALS: BP 139/62
[2017-03-21] MEDS: Eliquis 2.5mg tablet ORAL SCH ×2 (09:00→18:00)
[2017-03-21 09:10] LABS: ANION GAP 8 mmol/L (5-15); CALCIUM 8.7 MG/DL (8.5-10.1); CARBON DIOXIDE 28 MMOL/L (21-32); CHLORIDE 104 MMOL/L (98-107); CREATININE 1.4 MG/DL (0.55-1.30); MAGNESIUM 2.1 MG/DL (1.8-2.4); POTASSIUM 3.5 MMOL/L (3.5-5.1); SODIUM 140 MMOL/L (136-145)
[2017-03-21 09:16] LABS: MEAN CORPUSCULAR HEMOGLOBIN 29.6 PG (27.0-31.0); MEAN CORPUSCULAR VOLUME 95 FL (80-99); MEAN PLATELET VOLUME 7.1 FL (6.5-10.1); PLATELET COUNT 229 K/UL (150-450); RED BLOOD COUNT 4.07 M/UL (4.20-5.40); RED CELL DISTRIBUTION WIDTH 13.9 % (11.6-14.8); WHITE BLOOD COUNT 3.4 K/UL (4.8-10.8)
[2017-03-21] MEDS: Aspirin EC 81mg tab ORAL SCH (09:55)
[2017-03-21] MEDS: Sinemet 25/100 tab ORAL SCH ×3 (09:55→18:00)
[2017-03-21 10:44] LABS: BAND NEUTROPHILS % (MANUAL) 0 % (0-8); BASOPHILS % (MANUAL) 0 % (0-2); EOSINOPHILS % (MANUAL) 3 % (0-3); LYMPHOCYTES % (MANUAL) 38 % (20-45); NEUTROPHILS % (MANUAL) 52 % (45-75); PLATELET ESTIMATE ADEQUATE; PLATELET MORPHOLOGY NORMAL; TOTAL CELLS COUNTED 100
[2017-03-21 12:00] VITALS: BP 119/59
--- NOTE | 2017-03-21 13:48 | Diagnostic Imaging Report ---
Indication: Dyspnea Comparison: 03/17/2017 A single view chest radiograph was obtained. Findings: Lungs are clear. Heart is enlarged. Left pacemaker noted. Bones are osteopenic. IMPRESSION: No acute disease
--- NOTE | 2017-03-21 14:30 | Nephrology Progress Note ---
Assessment/Plan Problem List: (1) ARF (acute renal failure) Assessment: no change (2) Hypertension (3) CHF (congestive heart failure) (4) Anemia (5) Atrial fibrillation (6) Hypokalemia Plan continue with current meds follow labs Subjective Subjective in NAD Objective Objective Last 24 Hour Vital Signs Date Time Temp Pulse Resp B/P (MAP) Pulse Ox O2 Delivery O2 Flow Rate FiO2 03/21/17 09:58 78 139/62 03/21/17 09:55 78 139/62 03/21/17 08:00 97.1 78 20 139/62 99 03/21/17 04:00 84 03/21/17 00:34 98.1 80 21 141/88 99 Room Air 03/21/17 00:00 80 03/20/17 20:46 70 149/56 03/20/17 20:22 97.5 70 20 149/56 100 Room Air 03/20/17 20:08 78 16 Room Air 21 03/20/17 20:00 79 03/20/17 16:00 97.6 75 18 105/51 100 Room Air 03/20/17 16:00 89 Laboratory Tests 03/21/17 08:10: White Blood Count 3.4L, Red Blood Count 4.07L, Hemoglobin 12.1, Hematocrit 38.8 , Mean Corpuscular Volume 95, Mean Corpuscular Hemoglobin 29.6, Mean Corpuscular Hemoglobin Concent 31.0L, Red Cell Distribution Width 13.9, Platelet Count 229, Mean Platelet Volume 7.1, Neutrophils (%) (Auto) , Lymphocytes (%) (Auto) , Monocytes (%) (Auto) , Eosinophils (%) (Auto) , Basophils (%) (Auto) , Differential Total Cells Counted 100, Neutrophils % ( Manual) 52, Lymphocytes % (Manual) 38, Monocytes % (Manual) 7, Eosinophils % ( Manual) 3, Basophils % (Manual) 0, Band Neutrophils 0, Platelet Estimate Adequate, Platelet Morphology Normal, Red Blood Cell Morphology Normal, Sodium Level 140, Potassium Level 3.5, Chloride Level 104, Carbon Dioxide Level 28, Anion Gap 8, Blood Urea Nitrogen 20H, Creatinine 1.4H, Estimat Glomerular Filtration Rate , Glucose Level 99, Calcium Level 8.7, Magnesium Level 2.1 Height (Feet): 5 Height (Inches): 6.00 Weight (Pounds): 160 Cardiovascular: normal rate Respiratory/Chest: lungs clear JANNET YANEZ Mar 21, 2017 14:30
[2017-03-21 16:00] VITALS: BP 122/60
--- NOTE | 2017-03-21 18:55 | Internal Med Progress Note ---
Subjective Date of Service: Mar 21, 2017 Physician Name Mayank Patel Attending Physician Sim Engel MD Current Medications Medications (Trade) Dose Ordered Sig/Trudy Route PRN Reason Start Time Stop Time Status Last Admin Dose Admin Acetaminophen (Tylenol) 650 mg Q4H PRN ORAL fever (temp>100.5F) 03/17/17 07:00 04/16/17 06:59 Al Hydroxide/Mg Hydroxide (Mylanta II) 30 ml Q6H PRN ORAL dyspepsia 03/17/17 07:00 04/16/17 06:59 Albuterol/ Ipratropium (Albuterol/ Ipratropium) 3 ml Q4H PRN HHN Shortness of Breath 03/20/17 15:00 03/25/17 14:59 Amlodipine Besylate (Norvasc) 2.5 mg DAILY ORAL 03/17/17 09:00 04/16/17 08:59 03/21/17 09:58 Apixaban (Eliquis) 2.5 mg BID ORAL 03/18/17 09:00 04/17/17 08:59 03/21/17 09:00 Aspirin (Ecotrin) 81 mg DAILY ORAL 03/18/17 09:00 04/17/17 08:59 03/21/17 09:55 Carbidopa/Levodopa (Sinemet 25/100) 0.5 ea THREE TIMES A DAY ORAL 03/17/17 15:15 04/16/17 15:14 03/21/17 14:50 Clonidine HCl (Catapres) 0.1 mg Q4H PRN ORAL For High Blood Pressure 03/17/17 07:00 04/16/17 06:59 Dextrose (Dextrose 50%) STAT PRN IV Hypoglycemia 03/17/17 07:00 04/16/17 06:59 Lorazepam (Ativan 2mg/ml 1ml) 0.5 mg Q4H PRN IV For Anxiety 03/17/17 07:00 03/24/17 06:59 03/19/17 09:39 Metoprolol Tartrate (Lopressor) 100 mg EVERY 12 HOURS ORAL 03/20/17 09:00 04/19/17 08:59 03/21/17 09:55 Morphine Sulfate (Morphine Sulfate) 1 mg Q4H PRN IVP For Pain 7-10 03/17/17 07:00 03/24/17 06:59 Nitroglycerin (Ntg) 0.4 mg Q5M X 3 DOSES PRN SL Prn Chest Pain 03/17/17 07:00 04/16/17 06:59 Ondansetron HCl (Zofran) 4 mg Q6H PRN IVP Nausea & Vomiting 03/17/17 07:00 04/16/17 06:59 Polyethylene Glycol (Miralax) 17 gm HSPRN PRN ORAL Constipation 03/17/17 07:00 04/16/17 06:59 Temazepam (Restoril) 15 mg HSPRN PRN ORAL Insomnia 03/17/17 07:00 03/24/17 06:59 Valproic Acid (Depakene) 250 mg Q8HR ORAL 03/21/17 09:00 04/16/17 08:59 03/21/17 14:00 Allergies: Coded Allergies: No Known Allergies (Unverified , 10/22/13) ROS Limited/Unobtainable: No Constitutional: Reports: no symptoms HEENT: Reports: no symptoms Cardiovascular: Reports: no symptoms Respiratory: Reports: no symptoms Gastrointestinal/Abdominal: Reports: no symptoms Genitourinary: Reports: no symptoms Neurologic/Psychiatric: Reports: no symptoms Subjective 81 YO F admitted with syncope. Cover for Int Surya-Dr Engel. Objective Last Vital Signs Date Time Temp Pulse Resp B/P (MAP) Pulse Ox O2 Delivery O2 Flow Rate FiO2 03/21/17 16:00 97.0 78 20 122/60 96 03/21/17 00:34 Room Air 03/20/17 20:08 21 Laboratory Tests Test 03/21/17 08:10 White Blood Count 3.4 K/UL (4.8-10.8) L Red Blood Count 4.07 M/UL (4.20-5.40) L Hemoglobin 12.1 G/DL (12.0-16.0) Hematocrit 38.8 % (37.0-47.0) Mean Corpuscular Volume 95 FL (80-99) Mean Corpuscular Hemoglobin 29.6 PG (27.0-31.0) Mean Corpuscular Hemoglobin Concent 31.0 G/DL (32.0-36.0) L Red Cell Distribution Width 13.9 % (11.6-14.8) Platelet Count 229 K/UL (150-450) Mean Platelet Volume 7.1 FL (6.5-10.1) Neutrophils (%) (Auto) % (45.0-75.0) Lymphocytes (%) (Auto) % (20.0-45.0) Monocytes (%) (Auto) % (1.0-10.0) Eosinophils (%) (Auto) % (0.0-3.0) Basophils (%) (Auto) % (0.0-2.0) Differential Total Cells Counted 100 Neutrophils % (Manual) 52 % (45-75) Lymphocytes % (Manual) 38 % (20-45) Monocytes % (Manual) 7 % (1-10) Eosinophils % (Manual) 3 % (0-3) Basophils % (Manual) 0 % (0-2) Band Neutrophils 0 % (0-8) Platelet Estimate Adequate Platelet Morphology Normal Red Blood Cell Morphology Normal Sodium Level 140 MMOL/L (136-145) Potassium Level 3.5 MMOL/L (3.5-5.1) Chloride Level 104 MMOL/L (98-107) Carbon Dioxide Level 28 MMOL/L (21-32) Anion Gap 8 mmol/L (5-15) Blood Urea Nitrogen 20 mg/dL (7-18) H Creatinine 1.4 MG/DL (0.55-1.30) H Estimat Glomerular Filtration Rate mL/min (>60) Glucose Level 99 MG/DL (74-106) Calcium Level 8.7 MG/DL (8.5-10.1) Magnesium Level 2.1 MG/DL (1.8-2.4) Intake and Output 03/21/17 03/22/17 19:00 07:00 Intake Total 1580 ml Balance 1580 ml Intake Oral 1580 ml # Voids 3 # Bowel Movements 2 Objective Objective General: No acute distress, awake and alert HEENT: NCAT, sclera anicteric, PERRL, EOMI. Neck: Supple, no significant jugular venous distention, Lungs: Good inspiratory effort,, clear to auscultation bilaterally, decrease air on bases no Wheeze or Rales. Heart: Irregularly irregular , normal S1/S2, PPM @ LCW. Abdomen: soft, nontender, nondistended. Normoactive bowel sounds. Extremities: No Cyanosis , clubbing or edema. Neuro: A&O x 3, Able to move all extremities Skin: warm, no rashes. Assessment/Plan Assessment/Plan Assessment/Plan 1. Syncopal episode, probably vasovagal.See neuro and cardiology note. 2. History of atrial fibrillation, probably permanent. 3. History of diastolic dysfunction and mild systolic dysfunction. 4. Peripheral vascular disease. 5. Coronary artery disease, status post drug-eluting stent placed in the right coronary artery previously. 6. BENTON / ATN on CKD with proteinuria. Improving; see nephrology note. 7. Parkinson syndrome. 8. Senile dementia. 9. Anxiety disorder. 10. Hypokalemia-Replace potassium PLAN: PT mobility, OOB to chair on [employer] Monitor Labs DC planning in 1 or 2 days MAYANK PATEL Mar 21, 2017 18:55
[2017-03-21 20:00] VITALS: BP 133/67
--- NOTE | 2017-03-21 22:40 | General Progress Note ---
Assessment/Plan Status: stable, progressing Subjective Date patient seen: Mar 21, 2017 Neurologic/Psychiatric: Reports: anxiety, depressed, emotional problems Allergies: Coded Allergies: No Known Allergies (Unverified , 10/22/13) Objective Last 24 Hour Vital Signs Date Time Temp Pulse Resp B/P (MAP) Pulse Ox O2 Delivery O2 Flow Rate FiO2 03/21/17 20:39 81 16 Room Air 21 03/21/17 20:34 75 122/60 03/21/17 16:00 97.0 78 20 122/60 96 03/21/17 16:00 75 03/21/17 12:00 76 03/21/17 12:00 97.8 78 19 119/59 03/21/17 09:58 78 139/62 03/21/17 09:55 78 139/62 03/21/17 09:00 70 79 82 03/21/17 08:00 86 03/21/17 08:00 97.1 78 20 139/62 99 03/21/17 04:00 84 03/21/17 00:34 98.1 80 21 141/88 99 Room Air 03/21/17 00:00 80 Intake and Output 03/21/17 03/22/17 19:00 07:00 Intake Total 1580 ml Balance 1580 ml Intake Oral 1580 ml # Voids 3 # Bowel Movements 2 Laboratory Tests 03/21/17 08:10: White Blood Count 3.4L, Red Blood Count 4.07L, Hemoglobin 12.1, Hematocrit 38.8 , Mean Corpuscular Volume 95, Mean Corpuscular Hemoglobin 29.6, Mean Corpuscular Hemoglobin Concent 31.0L, Red Cell Distribution Width 13.9, Platelet Count 229, Mean Platelet Volume 7.1, Neutrophils (%) (Auto) , Lymphocytes (%) (Auto) , Monocytes (%) (Auto) , Eosinophils (%) (Auto) , Basophils (%) (Auto) , Differential Total Cells Counted 100, Neutrophils % ( Manual) 52, Lymphocytes % (Manual) 38, Monocytes % (Manual) 7, Eosinophils % ( Manual) 3, Basophils % (Manual) 0, Band Neutrophils 0, Platelet Estimate Adequate, Platelet Morphology Normal, Red Blood Cell Morphology Normal, Sodium Level 140, Potassium Level 3.5, Chloride Level 104, Carbon Dioxide Level 28, Anion Gap 8, Blood Urea Nitrogen 20H, Creatinine 1.4H, Estimat Glomerular Filtration Rate , Glucose Level 99, Calcium Level 8.7, Magnesium Level 2.1 Height (Feet): 5 Height (Inches): 6.00 Weight (Pounds): 160 General Appearance: no apparent distress, alert Neurologic: alert, responsive, depressed affect Lindsay Cordova M.D. Mar 21, 2017 22:40
[2017-03-22] VITALS: BP 119/65
[2017-03-22 04:00] VITALS: BP 160/84
[2017-03-22 08:00] VITALS: BP 151/70
[2017-03-22] MEDS: Aspirin EC 81mg tab ORAL SCH (09:29)
[2017-03-22] MEDS: Eliquis 2.5mg tablet ORAL SCH ×2 (09:29→18:14)
[2017-03-22] MEDS: Sinemet 25/100 tab ORAL SCH ×3 (09:29→18:00)
--- NOTE | 2017-03-22 09:52 | Nephrology Progress Note ---
Assessment/Plan Problem List: (1) ARF (acute renal failure) Assessment: no labs today (2) Hypertension Assessment: BP higher (3) CHF (congestive heart failure) (4) Anemia (5) Atrial fibrillation (6) Hypokalemia Plan follow labs watch BP Subjective Subjective in NAD Objective Objective Last 24 Hour Vital Signs Date Time Temp Pulse Resp B/P (MAP) Pulse Ox O2 Delivery O2 Flow Rate FiO2 03/22/17 09:30 85 151/70 03/22/17 09:29 85 151/70 03/22/17 08:00 95.9 85 18 151/70 100 Room Air 03/22/17 04:00 97.5 66 20 160/84 97 Room Air 03/22/17 04:00 75 03/22/17 00:00 97.3 68 18 119/65 100 Room Air 03/22/17 00:00 115 03/21/17 20:39 81 16 Room Air 21 03/21/17 20:34 75 122/60 03/21/17 20:00 101 03/21/17 20:00 97.9 66 20 133/67 98 Room Air 03/21/17 16:00 97.0 78 20 122/60 96 03/21/17 16:00 75 03/21/17 12:00 76 03/21/17 12:00 97.8 78 19 119/59 03/21/17 09:58 78 139/62 03/21/17 09:55 78 139/62 Intake and Output 03/22/17 03/23/17 19:00 07:00 Intake Total 120 ml Balance 120 ml Intake Oral 120 ml # Voids 1 Height (Feet): 5 Height (Inches): 6.00 Weight (Pounds): 160 Cardiovascular: normal rate Respiratory/Chest: lungs clear Extremities: other - no edema JANNET YANEZ Mar 22, 2017 09:52
--- NOTE | 2017-03-22 09:59 | Cardiology Progress Note ---
Assessment/Plan Assessment/Plan 1. Syncopal episode. 2. History of atrial fibrillation permam with sig tachy 3. History of diastolic dysfunction and mild systolic dysfunction previously. 4. Peripheral vascular disease. 5. Coronary artery disease, status post drug-eluting stent placed in the right coronary artery previously. 6. Renal insufficiency, new compared to 2014 labs from [facility]. 7. carotid stenosis tele afib hr are better controlled pacer interrogated functioning fine trop neg prelim echo noted i have increased bb bp is elevated will add lwo dose cardizem instead of Norvasc so far no over cause fo syncope other tahn possible she was too tachy Subjective Cardiovascular: Denies: chest pain, lightheadedness, palpitations Respiratory: Denies: shortness of breath Gastrointestinal/Abdominal: Denies: abdominal pain Genitourinary: Denies: burning Objective Last 24 Hour Vital Signs Date Time Temp Pulse Resp B/P (MAP) Pulse Ox O2 Delivery O2 Flow Rate FiO2 03/22/17 09:30 85 151/70 03/22/17 09:29 85 151/70 03/22/17 08:00 95.9 85 18 151/70 100 Room Air 03/22/17 04:00 97.5 66 20 160/84 97 Room Air 03/22/17 04:00 75 03/22/17 00:00 97.3 68 18 119/65 100 Room Air 03/22/17 00:00 115 03/21/17 20:39 81 16 Room Air 21 03/21/17 20:34 75 122/60 03/21/17 20:00 101 03/21/17 20:00 97.9 66 20 133/67 98 Room Air 03/21/17 16:00 97.0 78 20 122/60 96 03/21/17 16:00 75 03/21/17 12:00 76 03/21/17 12:00 97.8 78 19 119/59 03/21/17 09:58 78 139/62 General Appearance: alert Neck: supple Respiratory/Chest: lungs clear Abdomen: normal bowel sounds, non tender, soft Extremities: no swelling Intake and Output 03/22/17 03/23/17 19:00 07:00 Intake Total 120 ml Balance 120 ml Intake Oral 120 ml # Voids 1 MARIE MARQUES Mar 22, 2017 09:59
--- NOTE | 2017-03-22 10:03 | Wound Care Consultation ---
Wound Assessment Wound Assessment #1: Wound Number: 1 Wound Present on Admission: Yes New Wound: No Status Change of Wound: No Wound Location Body Site Modif: right, lower, lateral Wound Location Body Site: leg Wound Type: other - chronic leg ulcer Jabier Test: Does not Jabier Pressure Ulcer Stage: Unstageable Wound Thickness: Full Thickness Wound Length: 7.0 Wound Width: 2.5 Wound Depth: utd Percent of Wound Bed Yellow/Wh: 50 Percent of Wound Black/Brown: 50 Wound Drainage Description: Serosanguineous Wound Drainage Amount: Moderate Wound Drainage Odor: None/Absent Tissue Surrounding Wound: Erythemic Wound General Appearance: Blackened, Draining, Necrotic Wound Assessment #2: Wound Number: 2 Wound Present on Admission: Yes New Wound: No Status Change of Wound: No Wound Location Body Site Modif: left Wound Location Body Site: heel Wound Type: pressure ulcer Jabier Test: Does not Jabier Pressure Ulcer Stage: Unstageable Wound Thickness: Full Thickness Wound Length: 5.0 Wound Width: 7.5 Wound Depth: utd Percent of Wound Black/Brown: 100 Wound Drainage Amount: None Wound Drainage Odor: None/Absent Tissue Surrounding Wound: Erythemic Wound General Appearance: Reddened, Blackened, Necrotic Wound Assessment #3: Wound Number: 3 Wound Present on Admission: Yes New Wound: No Status Change of Wound: No Wound Location Body Site Modif: left, lower, posterior Wound Location Body Site: leg Wound Type: other - chronic leg ulcer Jabier Test: Does not Jabier Pressure Ulcer Stage: Unstageable Wound Thickness: Full Thickness Wound Length: 3.0 Wound Width: 2.0 Wound Depth: utd Percent of Wound Black/Brown: 100 Wound Drainage Amount: None Wound Drainage Odor: None/Absent Tissue Surrounding Wound: Erythemic Wound General Appearance: Reddened, Blackened, Necrotic Wound Assessment #4: Wound Number: 4 Wound Present on Admission: Yes New Wound: No Status Change of Wound: No Wound Location Body Site Modif: left, lower, lateral Wound Location Body Site: leg Wound Type: other - chronic leg ulcer Jabier Test: Does not Jbaier Pressure Ulcer Stage: Unstageable Wound Thickness: Full Thickness Wound Length: 3.0 Wound Width: 2.0 Wound Depth: utd Percent of Wound Black/Brown: 100 Wound Drainage Amount: None Wound Drainage Odor: None/Absent Tissue Surrounding Wound: Erythemic Wound General Appearance: Reddened, Blackened, Necrotic Wound Assessment #5: Wound Number: 5 Wound Present on Admission: No New Wound: Yes Status Change of Wound: No Wound Location Body Site Modif: left Wound Location Body Site: toe - tip of toe 1st Wound Type: other - diabetic ulcer Jabier Test: Does not Jabier Wound Thickness: Full Thickness Wound Length: 0.5 Wound Width: 0.5 Wound Depth: utd Percent of Wound Black/Brown: 100 - iontact dry adhered scab Other Colors Identified: noted moya/maroon dry intact colored skin to surrounding site 1.0cmx1.0cm Wound Drainage Amount: None Wound Drainage Odor: None/Absent Tissue Surrounding Wound: Intact Wound General Appearance: Blackened - scab, Clean/Dry Wound Assessment #6: Wound Number: 6 Wound Present on Admission: No New Wound: Yes Status Change of Wound: No Wound Location Body Site Modif: left Wound Location Body Site: toe - 2nd Wound Type: other - Diabetic ulcers, Jabier Test: Does not Jabier Wound Thickness: Full Thickness Wound Length: 1.0 - scattered 2sites Wound Width: 1.0 - scattered 2 sites close in proximity Wound Depth: utd Percent of Wound Black/Brown: 50 - dry inact Percent of Wound Purple/Maroon: 50 - dry intact Wound Drainage Amount: None Wound Drainage Odor: None/Absent Tissue Surrounding Wound: Intact Wound General Appearance: Reddened - moya,maroon dry Wound Assessment #7: Wound Number: 7 Wound Present on Admission: No New Wound: Yes Status Change of Wound: No Wound Location Body Site Modif: right Wound Location Body Site: heel Wound Type: pressure ulcer Jabier Test: Does not Jabier Pressure Ulcer Stage: Deep Tissue Injury - suspected Wound Thickness: Full Thickness Wound Length: 2.0 Wound Width: 2.0 Wound Depth: utd Percent of Wound [place]/Red: 50 - deep red Percent of Wound Black/Brown: 50 - moya dry Wound Drainage Amount: None Wound Drainage Odor: None/Absent Tissue Surrounding Wound: Intact Wound General Appearance: Reddened - deep red,moya dry Wound Assessment #8: Wound Number: 8 Wound Present on Admission: No New Wound: Yes Status Change of Wound: No Wound Location Body Site Modif: left Wound Location Body Site: toe - 3rd Wound Type: other - diabetic ulcer Jabier Test: Does not Jabier Wound Thickness: Full Thickness Wound Length: 0.5 Wound Width: 0.5 Wound Depth: utd Percent of Wound Black/Brown: 50 - moya color Percent of Wound Purple/Maroon: 50 Wound Drainage Amount: None Wound Drainage Odor: None/Absent Tissue Surrounding Wound: Intact Wound General Appearance: Reddened - moya,maroon Wound Assessment #9: Wound Number: 9 Wound Present on Admission: No New Wound: Yes Status Change of Wound: No Wound Location Body Site Modif: left Wound Location Body Site: toe - 4th Wound Type: other - diabetic ulcer Jabier Test: Does not Jabier Wound Thickness: Full Thickness Wound Length: 0.5 Wound Width: 0.5 Wound Depth: utd Percent of Wound Black/Brown: 50 - moya Percent of Wound Purple/Maroon: 50 Wound Drainage Amount: None Wound Drainage Odor: None/Absent Tissue Surrounding Wound: Intact Wound General Appearance: Reddened Wound Assessment #10: Wound Number: 10 Wound Present on Admission: No New Wound: Yes Status Change of Wound: No Wound Location Body Site Modif: right, lower, medial Wound Location Body Site: leg Wound Type: scab Jabier Test: Does not Jabier Wound Thickness: Partial Thickness Wound Length: 2.0 Wound Width: 2.0 Percent of Wound Black/Brown: 100 - dry Wound Drainage Amount: None Wound Drainage Odor: None/Absent Tissue Surrounding Wound: Intact Wound General Appearance: Blackened - dry adhered scab, Clean/Dry Wound Assessment #11: Wound Number: 11 Wound Present on Admission: No New Wound: Yes Status Change of Wound: No Wound Location Body Site Modif: right Wound Location Body Site: metatarsal head - 1st Wound Type: other - diabetic ulcer Jabier Test: Does not Jabier Wound Thickness: Full Thickness Wound Length: 0.3 Wound Width: 0.3 Percent of Wound Purple/Maroon: 100 Wound Drainage Amount: None Wound Drainage Odor: None/Absent Tissue Surrounding Wound: Intact Wound General Appearance: Reddened Wound Assessment #12: Wound Number: 12 Wound Present on Admission: Yes New Wound: No Status Change of Wound: No Wound Location Body Site Modif: left, upper Wound Location Body Site: buttocks Wound Type: scar Jabier Test: Does not Jabier Wound Thickness: Full Thickness Wound Length: 1.0 Wound Width: 1.0 Percent of Wound [place]/Red: 100 Wound Drainage Amount: None Wound Drainage Odor: None/Absent Tissue Surrounding Wound: Intact Wound General Appearance: Clean/Dry Wound Assessment #13: Wound Number: 13 Wound Present on Admission: No New Wound: Yes Status Change of Wound: No Wound Location Body Site Modif: right Wound Location Body Site: hand - forarm Wound Type: scab Jabire Test: Does not Jabier Percent of Wound Black/Brown: 100 - scattered dry. Wound General Appearance: Clean/Dry Wound Comment #1 Right lateral lower leg chronic leg ulcer. #2 Left heel unstageable pressure ulcer. #3 Left posterior lower leg chronic leg ulcer. #4 Left lateral lower leg chronic leg ulcer. #5 Left tip of 1st toe diabetic ulcer. #6 Left 2nd toe diabetic ulcer. #7 Right heel suspected deep tissue injury. #8 Left 3rd toe diabetic ulcer. #9 Left 4th toe diabetic ulcer. #10 Right lower medial leg scab. #11 Right 1st metatarsal head diabetic ulcer. #12 Left upper buttock full thickness scar tissue. #13 Right hand/forearm scattered scabs. Recommendation. FOLLOW UP WITH MD FOR POSSIBLE PODIATRY CONSULT. -Local wound care per protocol. - Turn and reposition. -Apply spr mattress for wound and skin management. -Keep clean and dry. -Optimize nutrition. -Offload affected sites. -Apply heel protectors. -Assess and notify MD for any further changes to skin and notify MD if any. -Assess scar tissue to buttocks for any further changes of condition to skin. JET WELLS Mar 22, 2017 10:03
[2017-03-22 10:39] LABS: EOSINOPHILS % (AUTO) 1.3 % (0.0-3.0); LYMPHOCYTES % (AUTO) 28.6 % (20.0-45.0); MEAN CORPUSCULAR HEMOGLOBIN 29.4 PG (27.0-31.0); MEAN CORPUSCULAR HGB CONC 30.7 G/DL (32.0-36.0); MEAN CORPUSCULAR VOLUME 96 FL (80-99); MEAN PLATELET VOLUME 7.3 FL (6.5-10.1); NEUTROPHILS % (AUTO) 59.2 % (45.0-75.0); PLATELET COUNT 207 K/UL (150-450); RED BLOOD COUNT 4.24 M/UL (4.20-5.40); RED CELL DISTRIBUTION WIDTH 13.9 % (11.6-14.8); WHITE BLOOD COUNT 4.1 K/UL (4.8-10.8)
[2017-03-22 10:51] LABS: ANION GAP 9 mmol/L (5-15); CARBON DIOXIDE 28 MMOL/L (21-32); CHLORIDE 103 MMOL/L (98-107); CREATININE 1.2 MG/DL (0.55-1.30); POTASSIUM 3.3 MMOL/L (3.5-5.1); SODIUM 139 MMOL/L (136-145)
[2017-03-22 11:55] VITALS: BP 150/50
[2017-03-22] MEDS: dilTIAZem HCl 30mg tab ORAL SCH ×2 (13:20→14:00)
[2017-03-22 16:00] VITALS: BP 143/93
--- NOTE | 2017-03-22 18:06 | Internal Med Progress Note ---
Subjective Date of Service: Mar 22, 2017 Physician Name Mayank Loza Attending Physician Sim Engel MD Current Medications Medications (Trade) Dose Ordered Sig/Trudy Route PRN Reason Start Time Stop Time Status Last Admin Dose Admin Acetaminophen (Tylenol) 650 mg Q4H PRN ORAL fever (temp>100.5F) 03/17/17 07:00 04/16/17 06:59 Al Hydroxide/Mg Hydroxide (Mylanta II) 30 ml Q6H PRN ORAL dyspepsia 03/17/17 07:00 04/16/17 06:59 Albuterol/ Ipratropium (Albuterol/ Ipratropium) 3 ml Q4H PRN HHN Shortness of Breath 03/20/17 15:00 03/25/17 14:59 Apixaban (Eliquis) 2.5 mg BID ORAL 03/18/17 09:00 04/17/17 08:59 03/22/17 09:29 Aspirin (Ecotrin) 81 mg DAILY ORAL 03/18/17 09:00 04/17/17 08:59 03/22/17 09:29 Carbidopa/Levodopa (Sinemet 25/100) 0.5 ea THREE TIMES A DAY ORAL 03/17/17 15:15 04/16/17 15:14 03/22/17 09:29 Clonidine HCl (Catapres) 0.1 mg Q4H PRN ORAL For High Blood Pressure 03/17/17 07:00 04/16/17 06:59 Dextrose (Dextrose 50%) STAT PRN IV Hypoglycemia 03/17/17 07:00 04/16/17 06:59 Diltiazem HCl (Cardizem) 30 mg EVERY 8 HOURS ORAL 03/22/17 14:00 04/21/17 13:59 Lorazepam (Ativan 2mg/ml 1ml) 0.5 mg Q4H PRN IV For Anxiety 03/17/17 07:00 03/24/17 06:59 03/19/17 09:39 Metoprolol Tartrate (Lopressor) 100 mg EVERY 12 HOURS ORAL 03/20/17 09:00 04/19/17 08:59 03/22/17 09:29 Morphine Sulfate (Morphine Sulfate) 1 mg Q4H PRN IVP For Pain 7-10 03/17/17 07:00 03/24/17 06:59 Nitroglycerin (Ntg) 0.4 mg Q5M X 3 DOSES PRN SL Prn Chest Pain 03/17/17 07:00 04/16/17 06:59 Ondansetron HCl (Zofran) 4 mg Q6H PRN IVP Nausea & Vomiting 03/17/17 07:00 04/16/17 06:59 Polyethylene Glycol (Miralax) 17 gm HSPRN PRN ORAL Constipation 03/17/17 07:00 04/16/17 06:59 Temazepam (Restoril) 15 mg HSPRN PRN ORAL Insomnia 03/17/17 07:00 03/24/17 06:59 Valproic Acid (Depakene) 250 mg Q8HR ORAL 03/21/17 09:00 04/16/17 08:59 03/22/17 06:59 Allergies: Coded Allergies: No Known Allergies (Unverified , 10/22/13) ROS Limited/Unobtainable: No Constitutional: Reports: no symptoms HEENT: Reports: no symptoms Cardiovascular: Reports: no symptoms Respiratory: Reports: no symptoms Gastrointestinal/Abdominal: Reports: no symptoms Genitourinary: Reports: no symptoms Neurologic/Psychiatric: Reports: no symptoms Subjective 81 YO F admitted with syncope. Cover for Int Med-Dr Engel. Awaiting swallow eval; however, Patient daughter insisting to take the patient home tonight. Objective Last Vital Signs Date Time Temp Pulse Resp B/P (MAP) Pulse Ox O2 Delivery O2 Flow Rate FiO2 03/22/17 16:00 97.0 86 18 143/93 100 Room Air 03/21/17 20:39 21 Laboratory Tests Test 03/22/17 10:05 White Blood Count 4.1 K/UL (4.8-10.8) L Red Blood Count 4.24 M/UL (4.20-5.40) Hemoglobin 12.5 G/DL (12.0-16.0) Hematocrit 40.6 % (37.0-47.0) Mean Corpuscular Volume 96 FL (80-99) Mean Corpuscular Hemoglobin 29.4 PG (27.0-31.0) Mean Corpuscular Hemoglobin Concent 30.7 G/DL (32.0-36.0) L Red Cell Distribution Width 13.9 % (11.6-14.8) Platelet Count 207 K/UL (150-450) Mean Platelet Volume 7.3 FL (6.5-10.1) Neutrophils (%) (Auto) 59.2 % (45.0-75.0) Lymphocytes (%) (Auto) 28.6 % (20.0-45.0) Monocytes (%) (Auto) 10.0 % (1.0-10.0) Eosinophils (%) (Auto) 1.3 % (0.0-3.0) Basophils (%) (Auto) 1.0 % (0.0-2.0) Sodium Level 139 MMOL/L (136-145) Potassium Level 3.3 MMOL/L (3.5-5.1) L Chloride Level 103 MMOL/L (98-107) Carbon Dioxide Level 28 MMOL/L (21-32) Anion Gap 9 mmol/L (5-15) Blood Urea Nitrogen 17 mg/dL (7-18) Creatinine 1.2 MG/DL (0.55-1.30) Estimat Glomerular Filtration Rate mL/min (>60) Glucose Level 91 MG/DL (74-106) Calcium Level 9.0 MG/DL (8.5-10.1) Intake and Output 03/22/17 03/23/17 19:00 07:00 Intake Total 120 ml Balance 120 ml Intake Oral 120 ml # Voids 1 Objective Objective General: No acute distress, awake and alert HEENT: NCAT, sclera anicteric, PERRL, EOMI. Neck: Supple, no significant jugular venous distention, Lungs: Good inspiratory effort,, clear to auscultation bilaterally, decrease air on bases no Wheeze or Rales. Heart: Irregularly irregular , normal S1/S2, PPM @ LCW. Abdomen: soft, nontender, nondistended. Normoactive bowel sounds. Extremities: No Cyanosis , clubbing or edema. Neuro: A&O x 3, Able to move all extremities Skin: warm, no rashes. Assessment/Plan Assessment/Plan Assessment/Plan 1. Syncopal episode, probably vasovagal.See neuro and cardiology note. 2. History of atrial fibrillation, probably permanent. 3. History of diastolic dysfunction and mild systolic dysfunction. 4. Peripheral vascular disease. 5. Coronary artery disease, status post drug-eluting stent placed in the right coronary artery previously. 6. [place] / ATN on CKD with proteinuria. Improving; see nephrology note. 7. Parkinson syndrome. 8. Senile dementia. 9. Anxiety disorder. 10. Hypokalemia-Replace potassium PLAN: PT mobility, OOB to chair on [employer] DC home MAYANK Montilla Mar 22, 2017 18:06
--- NOTE | 2017-03-22 23:14 | General Progress Note ---
Assessment/Plan Status: not improved Subjective Neurologic/Psychiatric: Reports: anxiety, depressed, emotional problems Allergies: Coded Allergies: No Known Allergies (Unverified , 10/22/13) Subjective the pt is more confused and attempted tocome out of bed Objective Last 24 Hour Vital Signs Date Time Temp Pulse Resp B/P (MAP) Pulse Ox O2 Delivery O2 Flow Rate FiO2 03/22/17 16:00 97.0 86 18 143/93 100 Room Air 03/22/17 16:00 107 03/22/17 14:00 82 150/50 03/22/17 12:00 86 03/22/17 11:55 96.3 82 18 150/50 99 Room Air 03/22/17 09:30 85 151/70 03/22/17 09:29 85 151/70 03/22/17 08:00 84 03/22/17 08:00 95.9 85 18 151/70 100 Room Air 03/22/17 04:00 97.5 66 20 160/84 97 Room Air 03/22/17 04:00 75 03/22/17 00:00 97.3 68 18 119/65 100 Room Air 03/22/17 00:00 115 Intake and Output 03/22/17 03/23/17 19:00 07:00 Intake Total 240 ml Balance 240 ml Intake Oral 240 ml # Voids 2 Laboratory Tests 03/22/17 10:05: White Blood Count 4.1L, Red Blood Count 4.24, Hemoglobin 12.5, Hematocrit 40.6, Mean Corpuscular Volume 96, Mean Corpuscular Hemoglobin 29.4, Mean Corpuscular Hemoglobin Concent 30.7L, Red Cell Distribution Width 13.9, Platelet Count 207, Mean Platelet Volume 7.3, Neutrophils (%) (Auto) 59.2, Lymphocytes (%) (Auto) 28.6, Monocytes (%) (Auto) 10.0, Eosinophils (%) (Auto) 1.3, Basophils (%) (Auto ) 1.0, Sodium Level 139, Potassium Level 3.3L, Chloride Level 103, Carbon Dioxide Level 28, Anion Gap 9, Blood Urea Nitrogen 17, Creatinine 1.2, Estimat Glomerular Filtration Rate , Glucose Level 91, Calcium Level 9.0 Height (Feet): 5 Height (Inches): 6.00 Weight (Pounds): 160 Neck: tender midline Farhadi,Pantea M.D. Mar 22, 2017 23:14
--- NOTE | 2017-03-23 17:30 | Discharge Summary ---
Discharge Summary Hospital Course Date of Admission Mar 17, 2017 at 03:06 Date of Discharge Mar 22, 2017 at 19:00 Admitting Diagnosis syncope VIPIN Valadez is a 81 year old female who was admitted on Mar 17, 2017 at 03:06 for Syncope Hospital Course [id number] Discharge Discharge Disposition Patient was discharged to Home with Home Health(06) Discharge Diagnoses: Rubina Pimentel NP Mar 23, 2017 17:30
--- NOTE | 2017-03-24 03:15 | Discharge Summary 2 SIG ---
DATE OF ADMISSION: 03/17/2017 DATE OF DISCHARGE: 03/22/2017 ATTENDING PHYSICIAN: Sim Engel M.D. CONSULTANTS: 1. Lindsay Cordova M.D. 2. Ponce Tomas M.D 3. Macho Tam M.D. 4. Casimiro Dale M.D. BRIEF HOSPITAL COURSE: The patient is an 81-year-old female, who presented with chief complaint of syncopal episode. HISTORY OF PRESENT ILLNESS: The patient was admitted to [facility] in December 2016. She lives at home. Daughter heard a thump and found the patient slumped over on a chair, however, there was no fall to the ground. She was then taken to [place] emergency room. On evaluation at ED, EKG was in atrial fibrillation with T-wave inversions noted in leads III and aVF. Chest x-ray showed a pacemaker on the left chest with cardiomegaly. Creatinine was 2.0. BUN was 14. She was admitted to telemetry for evaluation of syncope and renal failure. She underwent neurologic evaluation. The patient showed signs of pacemaker syndrome and was started on Sinemet. Head CT showed chronic age-related changes. Negative for acute intracranial bleed or mass effect. There was a left parietal calcification, which may indicate old cysticercosis or other post inflammatory changes. Cardiac evaluation was done. EKG has been unchanged compared to 2014. Troponin was 0.08 and proBNP 4700. The patient seems to have a chronic atrial fibrillation and is on anticoagulation with Xarelto. Echocardiogram showed ejection fraction 55% with evidence of significant diastolic dysfunction on echocardiogram. IVC is 1.8 cm with physiologic collapse. She has a permanent pacemaker on the left side of the chest, which appears to be single chamber. Pacemaker interrogation done showed normal function. Beta-elton was increased and blood pressure was elevated. A low-dose of Cardizem was added instead of the Norvasc. She had renal failure. Serum creatinine has improved. She may also have an underlying chronic kidney disease especially with presence of 3+ proteinuria. The etiology of her chronic kidney disease would be atherosclerotic kidney disease and hypertensive nephropathy. Acute renal failure could have been caused by volume depletion. She has been on diuretics at home and diuretics have been placed on hold. 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 Left common carotid and internal carotid was with mild stenosis. Left external carotid with minimal stenosis. Doppler signals obtained from the vertebral artery was low-amplitude with highly resistive suggestive of intracranial occlusive disease. She was confused and agitated and had psychiatric evaluation. She was continued with Ativan. Seroquel was discontinued. She underwent a swallow evaluation and the patient was not receptive. She was recommended repeat swallow evaluation, however, the patient's daughter insisted to take the patient home. She was eventually discharged home with home health. She came in with multiple leg ulcers to the lower extremities. She was given wound care. FINAL DIAGNOSES: 1. Syncopal episode, probably vasovagal in nature. 2. History of atrial fibrillation, probably permanent. 3. History of diastolic dysfunction and mild systolic dysfunction. 4. Peripheral vascular disease. 5. Coronary artery disease status post drug eluting stent placed in the right coronary artery previously. 6. Acute kidney injury/acute tubular necrosis on chronic kidney disease with proteinuria, improving. 7. Parkinson syndrome. 8. Senile dementia. 9. Anxiety disorder. 10. Hypokalemia. DISPOSITION: The patient was discharged home with home health. DISCHARGE MEDICATIONS: Refer to medication list. DISCHARGE INSTRUCTIONS: Follow up in a week. Deng Loza M.D. I have been assigned to dictate discharge summary on this account and I was not involved in the patient's management. Rubina Pimentel N.P. DR: FABRICIO JOB#: [id number] CC:
--- NOTE | 2017-03-29 07:29 | Cardiology Report ---
APPROVED REPORT EXAM: Two-dimensional and M-mode echocardiogram with Doppler and color Doppler. INDICATION Left Ventricular Function M-Mode DIMENSIONS IVSd1.4 (0.7-1.1cm)Left Atrium (MM)5.3 (1.6-4.0cm) LVDd4.1 (3.5-5.6cm)Aortic Root2.7 (2.0-3.7cm) PWd1.2 (0.7-1.1cm)Aortic Cusp Exc.1.8 (1.5-2.0cm) LVDs3.4 (2.5-4.0cm) PWs1.2 cm Normal left ventricular chamber size, systolic function and wall motion. Left ventricular ejection fraction estimated to be 55 %. Mild left ventricular hypertrophy. No evidence of pericardial effusion. Moderate left atrial enlargement. Severe right atrial enlargement. Mild right ventricular enlargement. Focal aortic valve sclerosis with adequate cusp excursion. Mild thickened mitral valve leaflets with normal excursion. Mild mitral annulus and aortic root calcification. Normal pulmonic valve structure. Normal tricuspid valve structure. IVC measures at 1.8 cm with physiologic collapse suggestive of increased RA pressure. Pacemaker wire present in the right side chambers. A color flow and spectral Doppler study was performed and revealed: Trace aortic regurgitation. Mild mitral regurgitation. Mitral inflow indicates restrictive pattern, implying severely elevated left atrial pressure (Grade III ). Mild tricuspid regurgitation. Tricuspid systolic velocities suggests peak right ventricular systolic pressure of 36 mmHg, consistent with mild pulmonary hypertension. Mild pulmonic regurgitation present.
--- NOTE | 2017-03-31 00:12 | Diagnostic Imaging Report ---
APPROVED REPORT CPT Code: 64058 Vascular Symptoms CVA/TIA: Comments: Technically difficult/limited visualization due to calcifications and tortuous carotid arteries Doppler Spectral Velocity Analysis RightLeft arteries. The Doppler spectral flow analysis indicates the degree of stenosis is mild (30%) in the common carotid artery, moderate to severe (60-79%) in the internal carotid artery, and moderate (50% - 60%) in the external carotid artery. VERTEBRAL- The vertebral artery is patent, without evidence of stenosis or steal. arteries. The Doppler spectral flow analysis indicates the degree of stenosis is mild (30-40%) in the common carotid artery, mild (30%) in the internal carotid artery, and minimal (20-30%) in the external carotid artery. VERTEBRAL-Doppler signals obtained from the vertebral artery was low amplitude and highly resistive, suggestive of intracranial occlusive disease. Note: Doppler signals obtained from the left common carotid and external carotid arteries were also highly resistive.
== END 2017-03-22 19:00 | disposition home health service (06) | DRG 683 ==
LOC: EDBD 01:20 → EMR 03:05 → 2E 03:06 → EDBEDREQ 06:17
DX: N17.0 Acute kidney failure with tubular necrosis (principal); I13.0 Hypertensive heart and chronic kidney disease with heart failure and stage 1 through stage 4 chronic kidney disease, or unspecified chronic kidney disease; I48.2 Chronic atrial fibrillation; F03.90 Unspecified dementia, unspecified severity, without behavioral disturbance, psychotic disturbance, mood disturbance, and anxiety; G20 Parkinson's disease; I50.9 Heart failure, unspecified; I27.20 Pulmonary hypertension, unspecified; I42.8 Other cardiomyopathies; R55 Syncope and collapse; L97.929 Non-pressure chronic ulcer of unspecified part of left lower leg with unspecified severity; L97.919 Non-pressure chronic ulcer of unspecified part of right lower leg with unspecified severity; Z79.01 Long term (current) use of anticoagulants; Z95.0 Presence of cardiac pacemaker; I65.21 Occlusion and stenosis of right carotid artery; E87.6 Hypokalemia; Z79.02 Long term (current) use of antithrombotics/antiplatelets; N18.9 Chronic kidney disease, unspecified; I25.10 Atherosclerotic heart disease of native coronary artery without angina pectoris; I73.9 Peripheral vascular disease, unspecified; F41.9 Anxiety disorder, unspecified; R26.9 Unspecified abnormalities of gait and mobility; Z95.5 Presence of coronary angioplasty implant and graft; R41.0 Disorientation, unspecified; Z23 Encounter for immunization
CPT/HCPCS: 36415; 70450; 71010; 80048; 80053; 80061; 80164; 81003; 82962; 83735; 83880; 84443; 84484; 85007; 85025; 85610; 85730; 90630; 93005; 93306; 93880; 94664; 99285; J8499